=== PATIENT | female | born 1980 | race Caucasian/White ===

== ENCOUNTER 2016-08-04 13:51 | Observation (INO) | payer MEDICAID ==
[2016-08-04] VITALS (10 sets, daily range): BP systolic 103–150; BP diastolic 55–78; PULSE 58–86; RESP 16–20; TEMP 97.8–98; O2SAT 97–99
[~2016-08-04] VITALS: Ht 152.4 cm; Wt 127.0 kg
[~2016-08-04 13:51] MED LIST: METHO500 PO; SUCR1S PO; TRAM50TA PO
[2016-08-04] MEDS ORDERED: AMLO5 PO (14:19)
[2016-08-04] MEDS ORDERED: ZETI10TA5 PO (14:19)
[2016-08-04] MEDS ORDERED: ROBA750T PO (14:19)
[2016-08-04] MEDS ORDERED: LEXA20TA PO (14:19)
[2016-08-04] MEDS ORDERED: ABIL2TAB2 PO (14:19)
[2016-08-04] MEDS ORDERED: SODIUM CHLORIDE 0.9% FLUSH 10 ML FLUSH IVF PRN (14:30)
--- NOTE | 2016-08-04 14:32 | PD ---
HPI Chief Complaint: Neuro Symptoms/ Deficits Time Seen by Provider: 14:32 Travel History International Travel<30 days: No Contact w/Intl Traveler<30days: No Traveled to known affect area: No History of Present Illness HPI 36-year-old female with a history of hypertension, hyperlipidemia, depression and chronic low back pain presents to the emergency department for evaluation of right-sided weakness and paresthesia intermittently for the past month. Patient states that she's had varying degrees of numbness and weakness on the right side for the past month. States that it extends from just below her right ear down her entire right side of her body, including the chest, torso, right arm and right leg. States that it sometimes lasts for several minutes to several hours at a time. 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 She states that he told her that her speech was slightly slurred this morning and she has been told this previously by her mother several times over the past month as well. She does complain of intermittent headache that extends from the forehead to the posterior scalp described as a sharp and pressure-like pain. She has a history of migraine headaches but states that the medication she has been taking have not been helping. This is not the worst headache of her life, this was not a sudden onset thunderclap headache. She complains of some blurred vision in the right eye intermittently as well over the past month, admits that she has poor vision and is waiting to receive her prescription for glasses. Denies fever, chills, nausea, vomiting, dizziness, gait disturbance, chest pain, shortness of breath, abdominal pain. PCP Dr. Stanford. No other complaints. PFSH Past Medical History Anemia: Yes (IRON-DEFICIENCY) Heart Rhythm Problems: Yes (IRREGULAR HEART BEAT) Cardiac Catheterization: No Cardiovascular Problems: Yes High Cholesterol: Yes Congestive Heart Failure: No Diabetes: No Diminished Hearing: No Genitourinary: Yes (UTI) Hypertension: Yes Musculoskeletal: Yes (CHRONIC BACK PAIN) Respiratory: Yes (BRONCHITIS ) Immunizations Current: Yes Myocardial Infarction: No Ulcer: Yes (stomach and intestine) Tetanus Vaccination: > 5 Years ?: Not : 3 Para: 3 Miscarriage: 0 : 0 Past Surgical History Abdominal Surgery: Yes ("BEADS" PLACED IN ABD TO REDUCE BLEEDING ) Body Medical Devices: HYPER LIPID Section: Yes (NEEDED SURGICAL REPAIR FOR EXCESSIVE BLEEDING AFTER ONE C SECTION) Coronary Artery Bypass Graft: No Hysterectomy: Yes (2006) Other Surgery: Yes (LEFT GREAT TOE) Family History Family Myocardial Infarction: Yes Social History Alcohol Use: Yes (OCC) Tobacco Use: No ( ) Substance Use: No Allergies-Medications (Allergen,Severity, Reaction): Coded Allergies: Bees (Verified Allergy, Severe, Swelling, 08/04/16) Citric Acid (Verified Allergy, Intermediate, itching, 08/04/16) Cultivated Oat Pollen (Verified Allergy, Mild, SNEEZING, 08/04/16) Reported Meds & Prescriptions Reported Meds & Active Scripts Active Reported Norvasc (Amlodipine Besylate) 5 Mg Tab 5 Mg PO DAILY Lexapro (Escitalopram Oxalate) 20 Mg Tab 20 Mg PO DAILY Zetia (Ezetimibe) 10 Mg Tab 10 Mg PO DAILY Robaxin (Methocarbamol) 750 Mg Tab 750 Mg PO QID Abilify (Aripiprazole) 2 Mg Tab 2 Mg PO DAILY Review of Systems Except as stated in HPI: all other systems reviewed are Neg Physical Exam Narrative GENERAL: Obese female patient in no acute distress who is nontoxic appearing. SKIN: Warm and dry. HEAD: Normocephalic and atraumatic. No facial droop. EYES: No injection, drainage, or hyphema noted. PERRLA. EOMI. ENT: No nasal drainage noted. Oropharynx is clear. NECK: Supple and the trachea is midline. CARDIOVASCULAR: Regular rate and rhythm. RESPIRATORY: Breath sounds are equal bilaterally with no accessory muscle use, wheezing, rhonchi, or crackles. GASTROINTESTINAL: Abdomen is soft, non-tender, and nondistended. MUSCULOSKELETAL: No obvious deformities, swelling, cyanosis, or ecchymosis is present throughout the upper and lower extremities. Patient has full range of motion without any signs of neurovascular compromise. Strength 5/5 upper and lower extremities and equal bilaterally. NEUROLOGICAL: Awake, alert, and oriented. Normal speech and gait. Normal finger to nose test. Normal rapid alternating movements. Superior aspect of visual ellis are slightly decreased bilaterally however this is equal in both eyes. Patient reporting paresthesias and right arm and right leg, sensation is intact on the face. Cranial nerves are grossly intact. Data Data Last Documented VS Vital Signs Date Time Temp Pulse Resp B/P Pulse Ox O2 Delivery O2 Flow Rate FiO2 08/04/16 15:47 98.0 58 16 129/74 98 Room Air Orders Electrocardiogram (08/04/16 14:27) Prothrombin Time / Inr (Pt) (08/04/16 14:27) Act Partial Throm Time (Ptt) (08/04/16 14:27) Complete Blood Count With Diff (08/04/16 14:27) Comprehensive Metabolic Panel (08/04/16 14:27) Troponin I (08/04/16 14:27) Ct Brain W/O Iv Contrast(Rout) (08/04/16 14:27) Chest, Single Ap (08/04/16 14:27) Ecg Monitoring (08/04/16 14:27) Iv Access Insert/Monitor (08/04/16 14:27) Oximetry (08/04/16 14:27) Blood Glucose (08/04/16 14:27) Sodium Chloride 0.9% Flush (Ns Flush) (08/04/16 14:30) Admit Order (Ed Use Only) (08/04/16 16:02) Labs Laboratory Tests Test 08/04/16 14:30 White Blood Count 9.7 TH/MM3 Red Blood Count 4.61 MIL/MM3 Hemoglobin 13.1 GM/DL Hematocrit 39.4 % Mean Corpuscular Volume 85.6 FL Mean Corpuscular Hemoglobin 28.5 PG Mean Corpuscular Hemoglobin 33.3 % Concent Red Cell Distribution Width 13.6 % Platelet Count 302 TH/MM3 Mean Platelet Volume 9.7 FL Neutrophils (%) (Auto) 59.2 % Lymphocytes (%) (Auto) 31.3 % Monocytes (%) (Auto) 6.0 % Eosinophils (%) (Auto) 3.0 % Basophils (%) (Auto) 0.5 % Neutrophils # (Auto) 5.7 TH/MM3 Lymphocytes # (Auto) 3.0 TH/MM3 Monocytes # (Auto) 0.6 TH/MM3 Eosinophils # (Auto) 0.3 TH/MM3 Basophils # (Auto) 0.0 TH/MM3 CBC Comment DIFF FINAL Differential Comment Prothrombin Time 9.9 SEC Prothromb Time International 0.9 RATIO Ratio Activated Partial 29.9 SEC Thromboplast Time Sodium Level 139 MEQ/L Potassium Level 4.3 MEQ/L Chloride Level 108 MEQ/L Carbon Dioxide Level 23.7 MEQ/L Anion Gap 7 MEQ/L Blood Urea Nitrogen 16 MG/DL Creatinine 0.83 MG/DL Estimat Glomerular Filtration 77 ML/MIN Rate Random Glucose 86 MG/DL Calcium Level 9.7 MG/DL Total Bilirubin 0.6 MG/DL Aspartate Amino Transf 22 U/L (AST/SGOT) Alanine Aminotransferase 26 U/L (ALT/SGPT) Alkaline Phosphatase 101 U/L Troponin I LESS THAN 0.02 NG/ML Total Protein 8.0 GM/DL Albumin 4.0 GM/DL MDM Medical Decision Making Medical Screen Exam Complete: Yes Emergency Medical Condition: Yes Differential Diagnosis TIA versus radiculopathy versus migraine headache versus CVA versus other Narrative Course 36-year-old female presents to the emergency department for evaluation of right- sided numbness and tingling, weakness and slurred speech. Patient is afebrile, vital signs are stable. Patient was sent here by her document control supervisor whom she saw in the office today for evaluation of these symptoms to rule out stroke. IV access is obtained, labs been drawn and sent. Patient is placed on cardiac telemetry and pulse oximetry monitoring. CBC is unremarkable. Troponin is less than 0.02. Coags are unremarkable. CMP is unremarkable. Chest x-ray is negative for any acute abnormalities. Head CT is negative for any acute abnormalities. Patient has remained stable and without complaint while here in the emergency department. She'll be kept in observation for TIA and CVA workup. I discussed the case with my attending physician Dr. Syed who is aware of the patients history, physical examination findings, and treatment plan. Physician Communication Physician Communication I spoke with Dr. Paulson [facility] who agrees to admit the patient to his service under observation. Diagnosis Primary Impression: TIA (transient ischemic attack) Qualified Code: G45.9 - Transient cerebral ischemia, unspecified type Admitting Information Admitting Physician Requests: Observation Jailene Carter Aug 04, 2016 14:32
--- NOTE | 2016-08-04 14:47 | RADRPT ---
EXAM DATE/TIME: 08/04/2016 14:26 [facility] COMPARISON: No previous studies available for comparison. INDICATIONS : Possible stroke, sent by community recreation coordinator, short of breath. MEDICAL HISTORY : cardiomyelopathy SURGICAL HISTORY : None. ENCOUNTER: Initial ACUITY: 1 day PAIN SCORE: 0/10 LOCATION: Bilateral chest FINDINGS: A single view of the chest demonstrates the lungs to be symmetrically aerated without evidence of mas s, infiltrate or effusion. The cardiomediastinal contours are unremarkable. Osseous structures are intact. CONCLUSION: No acute cardiopulmonary process. Sundeep Valenzuela MD on August 04, 2016 at 14:44 Board Certified Radiologist. This report was verified electronically.
[2016-08-04 15:05] LABS: AUTOMATED NEUTROPHIL # 5.7 TH/MM3 (1.8-7.7); BASOPHIL % 0.5 % (0.0-2.0); EOSINOPHIL # 0.3 TH/MM3 (0-0.4); HEMATOCRIT 39.4 % (35.0-46.0); HEMO FLAGS DIFF FINAL; LYMPH % 31.3 % (9.0-44.0); MEAN CELL VOLUME 85.6 FL (80.0-100.0); MEAN CORPUSCULAR HEMOGLOBIN 28.5 PG (27.0-34.0); MEAN CORPUSCULAR HGB CONC 33.3 % (32.0-36.0); NEUT % 59.2 % (16.0-70.0); PLATELET COUNT 302 TH/MM3 (150-450); RED BLOOD COUNT 4.61 MIL/MM3 (4.00-5.30); RED CELL DISTRIBUTION WIDTH 13.6 % (11.6-17.2); WHITE BLOOD COUNT 9.7 TH/MM3 (4.0-11.0)
--- NOTE | 2016-08-04 15:18 | RADRPT ---
EXAM DATE/TIME: 08/04/2016 15:07 [facility] COMPARISON: CT BRAIN W/O CONTRAST, June 27, 2013, 14:50. INDICATIONS : Patient has history of migraine headaches.. RADIATION DOSE: ?34.94 CTDIvol (mGy) MEDICAL HISTORY : Cardiovascular disease. Hypertension. SURGICAL HISTORY : Hysterectomy. ENCOUNTER: Initial ACUITY: 1 day PAIN SCALE: 8/10 LOCATION: Bilateral cranial TECHNIQUE: Multiple contiguous axial images were obtained of the head. Using automated exposure control and adj ustment of the mA and/or kV according to patient size, radiation dose was kept as low as reasonably a chievable to obtain optimal diagnostic quality images. FINDINGS: CEREBRUM: The ventricles are normal for age. No evidence of midline shift, mass lesion, hemorrhage or acute in farction. No extra-axial fluid collections are seen. POSTERIOR FOSSA: The cerebellum and brainstem are intact. The 4th ventricle is midline. The cerebellopontine angle i s unremarkable. EXTRACRANIAL: The visualized portion of the orbits is intact. SKULL: The calvaria is intact. No evidence of skull fracture. CONCLUSION: The study remains unremarkable. Bjorn Fraser MD on August 04, 2016 at 15:15 Board Certified Radiologist. This report was verified electronically.
[2016-08-04 15:19] LABS: INTERNATIONAL NORMALIZED RATIO 0.9 RATIO; PROTHROMBIN TIME - PATIENT 9.9 SEC (9.8-11.6)
[2016-08-04 15:20] LABS: APTT (PATIENT) 29.9 SEC (24.3-30.1)
[2016-08-04 15:22] LABS: ALKALINE PHOSPHATASE 101 U/L (45-117); TOTAL BILIRUBIN ADULT 0.6 MG/DL (0.2-1.0)
[2016-08-04 15:48] LABS: ALT (GPT) 26 U/L (10-53); ANION GAP 7 MEQ/L (5-15); AST (GOT) 22 U/L (15-37); BICARBONATE 23.7 MEQ/L (21.0-32.0); BLOOD UREA NITROGEN 16 MG/DL (7-18); CHLORIDE 108 MEQ/L (98-107); GLOMERULAR FILTRATION RATE 77 ML/MIN (>89); POTASSIUM 4.3 MEQ/L (3.5-5.1); SODIUM (NA) 139 MEQ/L (136-145)
[2016-08-04] MEDS ORDERED: SODIUM CHLORIDE 0.9% FLUSH 10 ML FLUSH IV FLUSH PRN (16:15)
[2016-08-04] MEDS ORDERED: ASPIRIN 325 MG TAB PO ONE (16:30)
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
[2016-08-04] MEDS: HEPARIN SODIUM - SQ 10,000 UNITS/ML VIAL SQ SCH (16:47)
[2016-08-04 17:59] LABS: HEMOGLOBIN A1a 0.9 %; HEMOGLOBIN Ao 85.5 %; HEMOGLOBIN F 0.8 %; HEMOGLOBIN P3 5.2 %
--- NOTE | 2016-08-04 18:02 | RADRPT ---
EXAM DATE/TIME: 08/04/2016 17:20 [facility] COMPARISON: No previous studies available for comparison. INDICATIONS : Transient ischemic attack. MEDICAL HISTORY : Hypercholesterolemia. Hypertension. . Irregular heart beat. Bronchitis. Ulcer. Chronic back pain. Iron-deficiency anemia. SURGICAL HISTORY : Hysterectomy. section. Left big toe reconstruction. section repair. ENCOUNTER: Initial ACUITY: 1 day PAIN SCORE: 0/10 LOCATION: Bilateral neck PEAK SYSTOLIC VELOCITIES (cm/sec): ICA/CCA RATIO: Right: 1.1 Left: 0.9 ICA: Right: 109 Left: 92 CCA: Right: 99 Left: 105 ECA: Right: 84 Left: 66 VERTEBRAL: Right: 47 antegrade Left: 68 antegrade Elevated flow velocities and ICA/CCA ratios have been found to correlate with increased degrees of vessel stenosis, calculated as percentage of diameter relative to a normal segment of distal ICA/CCA FINDINGS: RIGHT CAROTID: No significant stenosis is visualized. The waveforms are within normal limits. LEFT CAROTID: No significant stenosis is visualized. The waveforms are within normal limits. VERTEBRAL ARTERIES: Antegrade flow is seen in both vertebral arteries. MISCELLANEOUS: None. CONCLUSION: Negative study with no evidence of stenosis. Bjorn Fraser MD on August 04, 2016 at 18:00 Board Certified Radiologist. This report was verified electronically.
[2016-08-04 18:07] LABS: FREE T4 1.02 NG/DL (0.76-1.46)
[2016-08-04] MEDS: SODIUM CHLORIDE 0.9% FLUSH 10 ML FLUSH IV FLUSH SCH (20:57)
[2016-08-04] MEDS: CLOPIDOGREL 75 MG TAB PO SCH (20:59)
[2016-08-04] MEDS ORDERED: ACETAMINOPHEN 325 MG TAB PO ONE (23:15)
[2016-08-05] VITALS (7 sets, daily range): BP systolic 111–133; BP diastolic 53–73; PULSE 51–80; RESP 19–21; TEMP 97.5–98.1; O2SAT 95–98
[2016-08-05] MEDS: HEPARIN SODIUM - SQ 10,000 UNITS/ML VIAL SQ SCH ×3 (02:51→16:48)
[2016-08-05 09:03] LABS: HDL CHOLESTEROL 63.9 MG/DL (40.0-60.0)
[2016-08-05] MEDS: CLOPIDOGREL 75 MG TAB PO SCH (09:09)
[2016-08-05] MEDS: ESCITALOPRAM OXALATE 20 MG TAB PO SCH (09:09)
[2016-08-05] MEDS: ASPIRIN 325 MG TAB PO SCH (09:09)
[2016-08-05] MEDS: ARIPiprazole 2 MG TAB PO SCH (09:09)
[2016-08-05] MEDS: EZETIMIBE 10 MG TAB PO SCH (09:09)
[2016-08-05] MEDS: SODIUM CHLORIDE 0.9% FLUSH 10 ML FLUSH IV FLUSH SCH ×2 (09:10→20:41)
[2016-08-05] MEDS: amLODIPine BESYLATE 5 MG TAB PO SCH (09:10)
--- NOTE | 2016-08-05 09:13 | HHI.PR ---
Review/Management Daily Summary 08/05 just back from imaging exam normal no new concerns await on studies Subjective Subjective Comments No acute events reported No headache No chest pain No dyspnea Active Medications Current Medications Medications (Trade) Dose Ordered Sig/Yuriy Route Start Time Stop Time Status Last Admin (NS Flush) 2 ml BID IV FLUSH 08/04/16 21:00 (NS Flush) 2 ml UNSCH PRN IV FLUSH 08/04/16 16:15 (Aspirin) 325 mg DAILY PO 08/05/16 09:00 (Heparin Inj) 5,000 units Q8H SQ 08/04/16 17:00 08/05/16 02:51 (Norvasc) 5 mg DAILY PO 08/05/16 09:00 (Abilify) 2 mg DAILY PO 08/05/16 09:00 (Lexapro) 20 mg DAILY PO 08/05/16 09:00 (Zetia) 10 mg DAILY PO 08/05/16 09:00 (Plavix) 75 mg DAILY PO 08/04/16 21:00 08/04/16 20:59 Allergies Allergies Coded Allergies Bees (Verified Allergy, Severe, Swelling, 08/04/16) Citric Acid (Verified Allergy, Intermediate, itching, 08/04/16) Cultivated Oat Pollen (Verified Allergy, Mild, SNEEZING, 08/04/16) Exam I&O / VS Vital Signs Date Time Temp Pulse Resp B/P Pulse Ox O2 Delivery O2 Flow Rate FiO2 08/05/16 07:47 98.0 51 21 132/60 96 08/05/16 03:28 97.5 51 20 130/73 97 08/04/16 22:35 71 08/04/16 22:32 97.9 86 20 142/75 98 08/04/16 22:16 110/78 99 08/04/16 21:48 86 18 103/55 99 Room Air 08/04/16 19:06 62 18 136/67 99 Room Air 08/04/16 17:00 97.8 75 16 119/70 99 Room Air 08/04/16 15:47 98.0 58 16 129/74 98 Room Air 08/04/16 14:33 66 16 127/71 98 Room Air 08/04/16 14:32 18 98 Room Air 08/04/16 14:10 17 Room Air 08/04/16 13:52 97.9 71 16 150/72 97 Objective Radiology Results Last [address] 08/04/16 1427 Signed Impressions: Service Date/Time: Thursday, August 04, 2016 15:07 - CONCLUSION: The study remains unremarkable. Bjorn Fraser MD Chest X-Ray 08/04/16 1427 Signed Impressions: Service Date/Time: Thursday, August 04, 2016 14:26 - CONCLUSION: No acute cardiopulmonary process. Sundeep Valenzuela MD Carotid Artery Ultrasound 08/04/16 0000 Signed Impressions: Service Date/Time: Thursday, August 04, 2016 17:20 - CONCLUSION: Negative study with no evidence of stenosis. Bjorn Fraser MD Micro and Labs Laboratory Tests Test 08/04/16 08/05/16 14:30 06:33 White Blood Count 9.7 Red Blood Count 4.61 Hemoglobin 13.1 Hematocrit 39.4 Mean Corpuscular Volume 85.6 Mean Corpuscular Hemoglobin 28.5 Mean Corpuscular Hemoglobin 33.3 Concent Red Cell Distribution Width 13.6 Platelet Count 302 Mean Platelet Volume 9.7 Neutrophils (%) (Auto) 59.2 Lymphocytes (%) (Auto) 31.3 Monocytes (%) (Auto) 6.0 Eosinophils (%) (Auto) 3.0 Basophils (%) (Auto) 0.5 Neutrophils # (Auto) 5.7 Lymphocytes # (Auto) 3.0 Monocytes # (Auto) 0.6 Eosinophils # (Auto) 0.3 Basophils # (Auto) 0.0 CBC Comment DIFF FINAL Differential Comment Prothrombin Time 9.9 Prothromb Time International 0.9 Ratio Activated Partial 29.9 Thromboplast Time Sodium Level 139 Potassium Level 4.3 Chloride Level 108 Carbon Dioxide Level 23.7 Anion Gap 7 Blood Urea Nitrogen 16 Creatinine 0.83 Estimat Glomerular Filtration 77 Rate Random Glucose 86 Hemoglobin A1c 5.5 Calcium Level 9.7 Total Bilirubin 0.6 Aspartate Amino Transf 22 (AST/SGOT) Alanine Aminotransferase 26 (ALT/SGPT) Alkaline Phosphatase 101 Troponin I LESS THAN 0.02 Total Protein 8.0 Albumin 4.0 Triglycerides Level 97 144 Cholesterol Level 257 247 LDL Cholesterol 175 154 HDL Cholesterol 63.0 63.9 Cholesterol/HDL Ratio 4.07 3.86 Free Thyroxine 1.02 Thyroid Stimulating Hormone 1.810 3rd Gen Leena Bonds MD Aug 05, 2016 09:13
[2016-08-05] MEDS ORDERED: GADODIAMIDE PF 287 MG/ML 20 ML VIAL (for RAD MRI) IV ONE (09:17)
--- NOTE | 2016-08-05 09:33 | MB ---
cc: BERENICE HOANG M.D. DATE OF CONSULTATION: 08/04/2016 HISTORY OF PRESENT ILLNESS The patient ___ provide history. I also reviewed the ED notes. She was seen in the emergency room. She comes in with a TIA. She is a 36-year-old, describing that she has been taking baby aspirin apparently most days. 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 She saw Dr. Patel and was told to come to this emergency room. She describes that last week she was at [facility] emergency room with somewhat similar symptoms. She describes that in the past month she has been having episodic right-sided numbness. She describes weakness and when her numbness is maximum she feels she cannot move the right side. It lasts anywhere from 2 or 3 minutes to 1/2 hour. In the past couple of days she has had it 8-10 times a day. She admits some occasional associated slurred speech and she also admits increasing headaches. The patient is not diabetic. She takes Zetia, Lipitor and Norvasc. NEUROLOGIC EXAMINATION The neurologic exam was quite benign. She is alert pleasant, oriented. Ocular movements and visual ellis are full. Normal speech and language. She has good strength in all four limbs on the bedside exam, though she gives away with the right. I do not see any obvious genuine weakness on the right side. Her reflexes were diminished, though present. She is obese. Plantar responses were flexor. IMAGING STUDIES The CT brain was unremarkable. LABORATORY DATA The patient's CBC was normal. Chemistry essentially normal. INR 0.9. ASSESSMENT Recurrent right-sided numbness, some associated slurred speech and increasing headaches lately. TIA versus migraines. Apparent component of depression, though not mentioned above, I realize now she is also taking Abilify and Lexapro which were not listed to me and also taking some Robaxin. I agree with neurological workup. She is to have cardiac monitoring, MRI brain, MRA head and neck, echocardiogram and lipid profile. Continue aspirin 325 and for the time being I will add Plavix. Thank you for asking us to assist in her care. MD AGUILAR Colby/TLRaza /8:40 PM /9:11 AM
--- NOTE | 2016-08-05 10:31 | RADRPT ---
EXAM DATE/TIME: 08/05/2016 07:59 [facility] COMPARISON: CT BRAIN W/O CONTRAST, August 04, 2016, 15:07. INDICATIONS : CVA. Intermittent right sided weakness for 1 month. MEDICAL HISTORY : Hypertension. SURGICAL HISTORY : Hysterectomy. section. Left great toe. ENCOUNTER: Subsequent ACUITY: 1 month PAIN SCORE: 0/10 LOCATION: head. TECHNIQUE: Multiplanar, multisequence MRI of the brain was performed without contrast. FINDINGS: CEREBRUM: The ventricles are normal for age. No evidence of midline shift, mass lesion, hemorrhage or acute in farction. No extraaxial fluid collections are seen. The pituitary gland and suprasellar cistern are normal in configuration. WHITE MATTER: No significant signal abnormalities are seen in the white matter. POSTERIOR FOSSA: The cerebellum and brainstem are intact. The 4th ventricle is midline. The cerebellopontine angle is unremarkable. The cerebellar tonsils are normal in position. DIFFUSION IMAGING: No focal areas of restricted diffusion are seen. No evidence of acute infarction. EXTRACRANIAL: The visualized portions of the orbits and paranasal sinuses are unremarkable. CONCLUSION: Negative exam. Sundeep Valenzuela MD on August 05, 2016 at 10:28 Board Certified Radiologist. This report was verified electronically.
--- NOTE | 2016-08-05 10:33 | RADRPT ---
EXAM DATE/TIME: 08/05/2016 07:59 [facility] COMPARISON: No previous studies available for comparison. INDICATIONS : CVA. Intermittent right sidede weakness for 1 month. MEDICAL HISTORY : Hypertension. SURGICAL HISTORY : section. Hysterectomy. Left great toe. ENCOUNTER: Subsequent ACUITY: 1 month PAIN SCORE: 0/10 LOCATION: head. Please note a normal MRA of the brain does not entirely exclude the possibility of a small aneurysm, nor the possibility of distal intracranial vessel disease. TECHNIQUE: 3D time of flight MRA was performed. Source images, multiplanar STS MIP, and 3D volume MIP reconstru ctions were reviewed. FINDINGS: There is excellent visualization of the major intracranial arteries out to the second-order branch ve ssels. There is no evidence for aneurysm, vessel truncation or stenosis, and no evidence for vascula r malformation. 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 The anterior communicating artery is patent. Patient is left vertebral erick nant. Both vertebrals are patent, However. CONCLUSION: 1. Anatomic variant of the [place] as above. 2. Otherwise, intracranial vessels are all patent without aneurysmal disease. Sundeep Valenzuela MD on August 05, 2016 at 10:29 Board Certified Radiologist. This report was verified electronically.
--- NOTE | 2016-08-05 10:39 | RADRPT ---
EXAM DATE/TIME: 08/05/2016 07:59 [facility] COMPARISON: US CAROTID ARTERIES, August 04, 2016, 17:20. INDICATIONS : Stenosis. CONTRAST: 20 cc Omniscan (gadodiamide) IV MEDICAL HISTORY : Hypertension. SURGICAL HISTORY : Hysterectomy. section. Left great toe. ENCOUNTER: Subsequent ACUITY: 1 month PAIN SCORE: 0/10 LOCATION: neck. Percent stenosis is calculated using the diameter of the stenotic region over the diameter of the nor mal distal internal carotid artery. TECHNIQUE: Bolus infused MRA of the extracranial circulation was performed using a neurovascular coil. Post pro cessing was performed including rotating subvolume maximum intensity projections of each carotid tyler ry, rotating full volume maximum intensity projections of both carotid arteries, sagittal and coronal sliding thin slab reformations of each carotid artery, and left oblique sliding thin slab reformatio n through the aortic arch to include the origin of the arch branch vessels. FINDINGS: AORTIC ARCH: Bovine arch. No evidence of ostial narrowing. RIGHT CAROTID: The common carotid artery is intact. The carotid bulb has a normal configuration without ulceration or narrowing. The internal carotid artery lumen is smooth without stenosis. The external carotid ar marly is intact. LEFT CAROTID: The common carotid artery is intact. The carotid bulb has a normal configuration without ulceration or narrowing. The internal carotid artery lumen is smooth without stenosis. The external carotid ar marly is intact. VERTEBRALS: Patient is left vertebral dominant. The origin of the right vertebral is not well-seen on this examin ation however, believe this is artifactual as the carotid ultrasound performed one day earlier shows a strong antegrade signal in the right vertebral artery. CONCLUSION: 1. Bovine arch. 2. Patient is left vertebral dominant. 3. The origin of the right vertebral is not identified on this exam however, I believe this is artifa ctual as the cervical ultrasound performed one day earlier shows a strong antegrade low resistance wa veform in the right vertebral artery. 4. Otherwise, cervical vessels are all patent Sundeep Valenzuela MD on August 05, 2016 at 10:31 Board Certified Radiologist. This report was verified electronically.
--- NOTE | 2016-08-05 13:58 | EKG ---
Date Performed: 08/04/2016 Time Performed: 15:00:35 PTAGE: 36 years EKG: Sinus rhythm NORMAL ECG Compared to prior tracing no significant change PREVIOUS TRACING : 06/08/2013 20.42 DOCTOR: Jesus Mcmahan Interpretating Date/Time 08/05/2016 13:56:44
--- NOTE | 2016-08-05 19:06 | HHI.PR ---
Subjective Remarks c/o headache, some toe numbness and nausea denies cp/sob stable vital signs Objective Vitals Vital Signs Date Time Temp Pulse Resp B/P Pulse Ox O2 Delivery O2 Flow Rate FiO2 08/05/16 15:20 97.9 63 20 128/69 95 08/05/16 11:43 98.0 58 21 133/64 98 08/05/16 07:47 98.0 51 21 132/60 96 08/05/16 03:28 97.5 51 20 130/73 97 08/04/16 22:35 71 08/04/16 22:32 97.9 86 20 142/75 98 08/04/16 22:16 110/78 99 08/04/16 21:48 86 18 103/55 99 Room Air Result Diagram: 08/04/16 1430 08/04/16 1430 Imaging Last Impressions Neck Magnetic Resonance Angiography 08/05/16 0000 Signed Impressions: Service Date/Time: July 07:59 - CONCLUSION: 1. Bovine arch. 2. Patient is left vertebral dominant. 3. The origin of the right vertebral is not identified on this exam however, I believe this is artifactual as the cervical ultrasound performed one day earlier shows a strong antegrade low resistance waveform in the right vertebral artery. 4. Otherwise, cervical vessels are all patent Sundeep Valenzuela MD Head Magnetic Resonance Angiography 08/05/16 0000 Signed Impressions: Service Date/Time: July 07:59 - CONCLUSION: 1. Anatomic variant of the [place] as above. 2. Otherwise, intracranial vessels are all patent without aneurysmal disease. Sundeep Valenzuela MD Brain MRI 08/05/16 0000 Signed Impressions: Service Date/Time: July 07:59 - CONCLUSION: Negative exam. Sundeep Valenzuela MD Head CT 08/04/16 1427 Signed Impressions: Service Date/Time: Thursday, August 04, 2016 15:07 - CONCLUSION: The study remains unremarkable. Bjorn Fraser MD Chest X-Ray 08/04/16 142 Signed Impressions: Service Date/Time: Thursday, August 04, 2016 14:26 - CONCLUSION: No acute cardiopulmonary process. Sundeep Valenzuela MD Carotid Artery Ultrasound 08/04/16 0000 Signed Impressions: Service Date/Time: Thursday, August 04, 2016 17:20 - CONCLUSION: Negative study with no evidence of stenosis. Bjorn Fraser MD Objective Remarks GENERAL: This is a well-nourished, well-developed patient, in no apparent distress. SKIN: No rashes, ecchymoses or lesions. Cool and dry. HEAD: Atraumatic. Normocephalic. No temporal or scalp tenderness. EYES: Pupils equal round and reactive. Extraocular motions intact. No scleral icterus. No injection or drainage. ENT: Nose without bleeding, purulent drainage or septal hematoma. Throat without erythema, tonsillar hypertrophy or exudate. Airway patent. NECK: Trachea midline. No JVD or lymphadenopathy. CARDIOVASCULAR: Regular rate and rhythm without murmurs, gallops, or rubs. RESPIRATORY: Clear to auscultation. Breath sounds equal bilaterally. No wheezes , rales, or rhonchi. GASTROINTESTINAL: Abdomen soft, non-tender, nondistended. No hepato-splenomegaly , or palpable masses. No guarding. MUSCULOSKELETAL: Extremities without clubbing, cyanosis, or edema. No joint tenderness, effusion, or edema noted. No calf tenderness. NEUROLOGICAL: Awake and alert. Cranial nerves II through XII intact. Motor and sensory grossly within normal limits.4 out of 5 muscle strength in right sided muscle groups. Normal speech. Decreased sensation in right lower extremity, right outer hand and right jaw compared to left side. Medications and IVs Current Medications Medications (Trade) Dose Ordered Sig/Yuriy Route Start Time Stop Time Status Last Admin (NS Flush) 2 ml BID IV FLUSH 08/04/16 21:00 08/05/16 09:10 (NS Flush) 2 ml UNSCH PRN IV FLUSH 08/04/16 16:15 (Aspirin) 325 mg DAILY PO 08/05/16 09:00 08/05/16 09:09 (Heparin Inj) 5,000 units Q8H SQ 08/04/16 17:00 08/05/16 16:48 (Norvasc) 5 mg DAILY PO 08/05/16 09:00 08/05/16 09:10 (Abilify) 2 mg DAILY PO 08/05/16 09:00 08/05/16 09:09 (Lexapro) 20 mg DAILY PO 08/05/16 09:00 08/05/16 09:09 (Zetia) 10 mg DAILY PO 08/05/16 09:00 08/05/16 09:09 (Plavix) 75 mg DAILY PO 08/04/16 21:00 08/05/16 09:09 (Zofran Inj) 4 mg Q6HR PRN IV PUSH 08/05/16 19:15 Urinary Catheter: No A/P Problem List: (1) TIA (transient ischemic attack) ICD Code: G45.9 Status: Acute (2) HTN (hypertension) ICD Code: I10 Status: Acute (3) HLD (hyperlipidemia) ICD Code: E78.5 Status: Acute Assessment and Plan 36 y/o female with a history of HTN, HLD, Depression, chronic back pain and gastric ulcers presented to the ED with complaints of right sided numbness and tingling. 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 She states for the last month she has been having multiple episode of numbness and tingling from her right ear down to her right toes. TIA, numbness and tingling on right side intermittent CT head unremarkable -MRI/ MRA ordered - negative -2D echo pending -Consult Neurology - recommendations appreciated. suggested possible migraine headache. -US carotids ordered - negative as above. -lipid panel - total cholesterol is 247, LDL 154, HDL 63.9. Continue Zetia. I will start the patient on simvastatin. -Continue aspirin 325 mg daily. -Neuro checks, NIH scale - Continue PT Hypothyroidism ruled out. -TSH and T4 ordered ----> within normal limits. TSH 1.8, free T4 1 0.02. HTN, chronic, currently stable -Cont home Norvasc -Monitor vitals HLD, chronic -Lipid panel shows elevated cholesterol as above. -Continue Zetia, start the patient on simvastatin. Depression, chronic -Continue Abilify and Lexapro. Headache - Possible migraine headache. I will give sumatriptan subcutaneously. DVT prophylaxis: Heparin, SCDs Discharge Planning Continue to monitor the medical floor. Possible discharge in a.m. pending neurologic clearance. Problem Qualifiers (1) TIA (transient ischemic attack): Qualified Code: G45.9 - Transient cerebral ischemia, unspecified type Ken Martinez MD Aug 05, 2016 19:06
[2016-08-05] MEDS ORDERED: SUMAtriptan INJ 6 MG/0.5 ML VIAL SQ ONE (19:15)
[2016-08-05] MEDS ORDERED: ONDANSETRON HCL 4 MG/2 ML VIAL IV PUSH PRN (19:15)
[2016-08-06 00:02] VITALS: PULSE 75
[2016-08-06] MEDS: HEPARIN SODIUM - SQ 10,000 UNITS/ML VIAL SQ SCH ×2 (01:00→09:33)
[2016-08-06 04:31] VITALS: BP 113/62; PULSE 55; RESP 18; TEMP 97.8; O2SAT 96
[2016-08-06 07:00] VITALS: PULSE 51
--- NOTE | 2016-08-06 09:11 | HHI.PR ---
Review/Management Daily Summary 08/05 just back from imaging exam normal no new concerns await on studies 08/06 doing well no sx recurrence studies negative ok neuro to go home on current meds office f/u in 2 weeks Subjective Subjective Comments No acute events reported No headache No chest pain No dyspnea Active Medications Current Medications Medications (Trade) Dose Ordered Sig/Yuriy Route Start Time Stop Time Status Last Admin (NS Flush) 2 ml BID IV FLUSH 08/04/16 21:00 08/05/16 20:41 (NS Flush) 2 ml UNSCH PRN IV FLUSH 08/04/16 16:15 (Aspirin) 325 mg DAILY PO 08/05/16 09:00 08/05/16 09:09 (Heparin Inj) 5,000 units Q8H SQ 08/04/16 17:00 08/06/16 01:00 (Norvasc) 5 mg DAILY PO 08/05/16 09:00 08/05/16 09:10 (Abilify) 2 mg DAILY PO 08/05/16 09:00 08/05/16 09:09 (Lexapro) 20 mg DAILY PO 08/05/16 09:00 08/05/16 09:09 (Zetia) 10 mg DAILY PO 08/05/16 09:00 08/05/16 09:09 (Plavix) 75 mg DAILY PO 08/04/16 21:00 08/05/16 09:09 (Zofran Inj) 4 mg Q6HR PRN IV PUSH 08/05/16 19:15 Allergies Allergies Coded Allergies Bees (Verified Allergy, Severe, Swelling, 08/04/16) Citric Acid (Verified Allergy, Intermediate, itching, 08/04/16) Cultivated Oat Pollen (Verified Allergy, Mild, SNEEZING, 08/04/16) Exam I&O / VS 08/05/16 08/05/16 08/06/16 15:00 23:00 07:00 Intake Total 200 ml 200 ml Output Total 400 ml Balance 200 ml -200 ml Intake Oral 200 ml 200 ml Output Urine Total 400 ml Vital Signs Date Time Temp Pulse Resp B/P Pulse Ox O2 Delivery O2 Flow Rate FiO2 08/06/16 07:00 51 08/06/16 04:31 97.8 55 18 113/62 96 08/06/16 00:02 75 08/05/16 23:06 98.0 54 19 120/58 96 08/05/16 22:56 80 08/05/16 22:22 18 08/05/16 19:15 98.1 74 19 111/53 96 08/05/16 15:20 97.9 63 20 128/69 95 08/05/16 11:43 98.0 58 21 133/64 98 Objective Radiology Results Last 48 hours Impressions Neck Magnetic Resonance Angiography 08/05/16 0000 Signed Impressions: Service Date/Time: July 07:59 - CONCLUSION: 1. Bovine arch. 2. Patient is left vertebral dominant. 3. The origin of the right vertebral is not identified on this exam however, I believe this is artifactual as the cervical ultrasound performed one day earlier shows a strong antegrade low resistance waveform in the right vertebral artery. 4. Otherwise, cervical vessels are all patent Sundeep Valenzuela MD Head Magnetic Resonance Angiography 08/05/16 0000 Signed Impressions: Service Date/Time: July 07:59 - CONCLUSION: 1. Anatomic variant of the [place] as above. 2. Otherwise, intracranial vessels are all patent without aneurysmal disease. Sundeep Valenzuela MD Brain MRI 08/05/16 0000 Signed Impressions: Service Date/Time: July 07:59 - CONCLUSION: Negative exam. Sundeep Valenzuela MD Head CT 08/04/16 142 Signed Impressions: Service Date/Time: Thursday, August 04, 2016 15:07 - CONCLUSION: The study remains unremarkable. Bjorn Fraser MD Chest X-Ray 08/04/161426 Signed Impressions: Service Date/Time: Thursday, August 04, 2016 14:26 - CONCLUSION: No acute cardiopulmonary process. MD Cammie Bailey Olimpio F. MD Aug 06, 2016 09:11
[2016-08-06 09:19] VITALS: BP 132/79; PULSE 64; RESP 18; TEMP 98.8; O2SAT 96
[2016-08-06] MEDS: ESCITALOPRAM OXALATE 20 MG TAB PO SCH (09:32)
[2016-08-06] MEDS: EZETIMIBE 10 MG TAB PO SCH (09:32)
[2016-08-06] MEDS: CLOPIDOGREL 75 MG TAB PO SCH (09:32)
[2016-08-06] MEDS: amLODIPine BESYLATE 5 MG TAB PO SCH (09:32)
[2016-08-06] MEDS: SODIUM CHLORIDE 0.9% FLUSH 10 ML FLUSH IV FLUSH SCH (09:32)
[2016-08-06] MEDS: ASPIRIN 325 MG TAB PO SCH (09:32)
[2016-08-06] MEDS: ARIPiprazole 2 MG TAB PO SCH (09:36)
[2016-08-06 11:49] VITALS: BP 167/93; PULSE 66; RESP 18; TEMP 98.8; O2SAT 97
[2016-08-06] MEDS ORDERED: PLAV75TA29 PO (14:24)
[2016-08-06] MEDS ORDERED: ASPI1TAB69 PO (14:24)
[2016-08-06] MEDS ORDERED: SIMV10TA PO (14:26)
--- NOTE | 2016-08-06 14:31 | HHI.DCPOC ---
Discharge Care Plan Diagnosis: (1) TIA (transient ischemic attack) (2) HTN (hypertension) (3) HLD (hyperlipidemia) (4) Migraine Goals to Promote Your Health * To prevent worsening of your condition and complications * To maintain your health at the optimal level Directions to Meet Your Goals Take your medications as prescribed Follow your dietary instruction Follow activity as directed Keep your appointments as scheduled Take your immunizations and boosters as scheduled If your symptoms worsen call your PCP, if no PCP go to Urgent Care Center or Emergency Room Smoking is Dangerous to Your Health. Avoid second hand smoke Call the 24-hour hour crisis hotline for domestic abuse at Ken Martinez MD Aug 06, 2016 14:30
--- NOTE | 2016-08-06 14:48 | HHI.DS ---
Discharge Summary Admission Date Aug 04, 2016 at 16:04 Discharge Date: Aug 06, 2016 Admitting Diagnosis TIA (1) TIA (transient ischemic attack) ICD Code: G45.9 Diagnosis: Principal (2) HTN (hypertension) ICD Code: I10 Diagnosis: Principal (3) HLD (hyperlipidemia) ICD Code: E78.5 Diagnosis: Principal (4) Migraine ICD Code: G43.909 Diagnosis: Principal Procedures none Brief History - From Admission 36 y/o female with a history of HTN, HLD, Depression, chronic back pain and gastric ulcers presented to the ED with complaints of right sided numbness and tingling. She was seen at her [facility] today who suggested she come to the ER to be evaluated for possible TIA. She states for the last month she has been having multiple episode of numbness and tingling from her right ear down to her right toes. She has noticed also increased weakness with her left side and has been dropping things with her hand. These episode last from 3 mins up to 30 mins and are very sporadic in times. Currently right now she only has tingling in her right toes, for the last 5 mins. She is also complaining of dizziness with ambulation that started 3 weeks ago. She denies any fever, chills, chest pain or sob. She does have a strong history of CVA and MT in her family. She is unsure if she has any thyroid problems, may have been told she does in the past year but is not on any medications. CBC/BMP: 08/04/16 1430 08/04/16 1430 Significant Findings Laboratory Tests Test 08/04/16 08/05/16 14:30 06:33 Chloride Level 108 MEQ/L (98-107) Estimat Glomerular Filtration 77 ML/MIN (>89) Rate Troponin I LESS THAN 0.02 NG/ML (0.02-0.05) Cholesterol Level 257 MG/DL 247 MG/DL (120-200) (120-200) LDL Cholesterol 175 MG/DL 154 MG/DL (0-99) (0-99) HDL Cholesterol 63.0 MG/DL 63.9 MG/DL (40.0-60.0) (40.0-60.0) Imaging Last Impressions Neck Magnetic Resonance Angiography 08/05/16 Signed Impressions: Service Date/Time: July 07:59 - CONCLUSION: 1. Bovine arch. 2. Patient is left vertebral dominant. 3. The origin of the right vertebral is not identified on this exam however, I believe this is artifactual as the cervical ultrasound performed one day earlier shows a strong antegrade low resistance waveform in the right vertebral artery. 4. Otherwise, cervical vessels are all patent Sundeep Valenzuela MD Head Magnetic Resonance Angiography 08/05/16 Signed Impressions: Service Date/Time: July 07:59 - CONCLUSION: 1. Anatomic variant of the [place] of [place] as above. 2. Otherwise, intracranial vessels are all patent without aneurysmal disease. Sundeep Valenzuela MD Brain MRI 08/05/16 Signed Impressions: Service Date/Time: July 07:59 - CONCLUSION: Negative exam. Sundeep Valenzuela MD Head CT 08/04/161426 Signed Impressions: Service Date/Time: Thursday, August 04, 2016 15:07 - CONCLUSION: The study remains unremarkable. Bjorn Fraser MD Chest X-Ray 08/04/161426 Signed Impressions: Service Date/Time: Thursday, August 04, 2016 14:26 - CONCLUSION: No acute cardiopulmonary process. Sundeep Valenzuela MD Carotid Artery Ultrasound 08/04/16 Signed Impressions: Service Date/Time: Thursday, August 04, 2016 17:20 - CONCLUSION: Negative study with no evidence of stenosis. Bjorn Fraser MD PE at Discharge GENERAL: This is a well-nourished, well-developed patient, in no apparent distress. SKIN: No rashes, ecchymoses or lesions. Cool and dry. HEAD: Atraumatic. Normocephalic. No temporal or scalp tenderness. EYES: Pupils equal round and reactive. Extraocular motions intact. No scleral icterus. No injection or drainage. ENT: Nose without bleeding, purulent drainage or septal hematoma. Throat without erythema, tonsillar hypertrophy or exudate. Airway patent. NECK: Trachea midline. No JVD or lymphadenopathy. CARDIOVASCULAR: Regular rate and rhythm without murmurs, gallops, or rubs. RESPIRATORY: Clear to auscultation. Breath sounds equal bilaterally. No wheezes , rales, or rhonchi. GASTROINTESTINAL: Abdomen soft, non-tender, nondistended. No hepato-splenomegaly , or palpable masses. No guarding. MUSCULOSKELETAL: Extremities without clubbing, cyanosis, or edema. No joint tenderness, effusion, or edema noted. No calf tenderness. NEUROLOGICAL: Awake and alert. Cranial nerves II through XII intact. Motor and sensory grossly within normal limits.4 out of 5 muscle strength in right sided muscle groups. Normal speech. Decreased sensation in right lower extremity. Pt update on day of discharge Patient states headache and symptoms were relieved after SQ Imitrex was given. The patient states that she does not have headache currently, however had small one this morning. She states that if the light external and then she gets a headache. Denies nausea. Patient has been seen by neurology and cleared for discharge. Hospital Course 36 y/o female with a history of HTN, HLD, Depression, chronic back pain and gastric ulcers presented to the ED with complaints of right sided numbness and tingling. She was seen at her [facility] today who suggested she come to the ER to be evaluated for possible TIA. She states for the last month she has been having multiple episode of numbness and tingling from her right ear down to her right toes. TIA, numbness and tingling on right side intermittent CT head unremarkable -MRI/ MRA ordered - negative -2D echo - Had one at cardiologists office. Transfer documents from Primary office show an EF of 55 to 60%. No intramural thrombus described. -Consult Neurology - recommendations appreciated. Possible complex migraine headache. Fu as outpatient in 2 weeks. Dc on ASA and Plavix. -US carotids ordered - negative as above. -lipid panel - total cholesterol is 247, LDL 154, HDL 63.9. Continue Zetia and Dc on Simvastatin. -Neuro checks monitored during hospital stay, NIH scale - PT, OT, ST evaluated patient. Pt recommended outpatient physical therapy. Patient will not need OT and is able to have regular diet with thin liquids. Hypothyroidism ruled out. -TSH and T4 ordered ----> within normal limits. TSH 1.8, free T4 1 0.02. HTN, chronic, Remained stable during hospital stay. -On norvasc during hospital stay. -Vitals monitored HLD, chronic -Lipid panel shows elevated cholesterol as above. -Continue Zetia, start the patient on simvastatin. Depression, chronic -Continue Abilify and Lexapro. Headache/Migaine headache - Possible complex migraine headache. Patient c/o headache, nausea, photphobia and paresthesias which resolved after administration of sumatriptan. The patient states that she has been prescribed Imitrex by her primary care and that she has descriptive home. Advised patient to take it if she has headache. DVT prophylaxis: Heparin SQ, SCDs Pt Condition on Discharge: Stable Discharge Disposition: Discharge Home Discharge Time: > 30 minutes Discharge Instructions DIET: Follow Instructions for: Heart Healthy Diet Speech Therapy-Diet Recommends: Regular Activities you can perform: Regular-No Restrictions Follow up Referrals: Neurology - 2 Weeks PCP Follow-up - 1 Week New Medications: Aspirin (Aspirin) 81 Mg Tabdr 81 MG PO DAILY Blood Clot Prevention #31 TAB Simvastatin (Simvastatin) 10 Mg Tab 10 MG PO DAILY Cholesterol Management #30 Ref 0 TAB Clopidogrel (Plavix) 75 Mg Tab 75 MG PO DAILY Blood Clot Prevention #31 TAB Continued Medications: Amlodipine (Norvasc) 5 Mg Tab 5 MG PO DAILY Blood Pressure Management #30 Ref 0 TAB Aripiprazole (Abilify) 2 Mg Tab 2 MG PO DAILY #30 Ref 0 TAB Escitalopram (Lexapro) 20 Mg Tab 20 MG PO DAILY #30 Ref 0 TAB Ezetimibe (Zetia) 10 Mg Tab 10 MG PO DAILY #30 Ref 0 TAB Discontinued Medications: Methocarbamol (Robaxin) 750 Mg Tab 750 MG PO QID Muscle Spasm Ref 0 TAB Ken Martinez MD Aug 06, 2016 14:47
== END 2016-08-06 16:55 | disposition home or self-care (01) ==
LOC: NEPE 13:51 → NEDA 16:04 → NEPHCDU 22:24
PROVIDERS: ADMIT Hospitalist; ATTEND Hospitalist
DX: G45.9 Transient cerebral ischemic attack, unspecified (principal); I10 Essential (primary) hypertension; E78.5 Hyperlipidemia, unspecified; F32.9 Major depressive disorder, single episode, unspecified; G43.909 Migraine, unspecified, not intractable, without status migrainosus; E78.00 Pure hypercholesterolemia, unspecified; M54.5 Low back pain; G89.21 Chronic pain due to trauma; Z87.11 Personal history of peptic ulcer disease; Z91.030 Bee allergy status; Z88.8 Allergy status to other drugs, medicaments and biological substances; Z91.048 Other nonmedicinal substance allergy status; Z87.891 Personal history of nicotine dependence; Z82.3 Family history of stroke
CPT/HCPCS: 70450; 70544; 70548; 70551; 71010; 80053; 80061; 82948; 83036; 84439; 84443; 84484; 85025; 85610; 85730; 92526; 92610; 93005; 93880; 97162; 97166; 99285; A9579; G0378; G8987; G8988; G8996; G8997; G8998; J1644; J3030

== ENCOUNTER 2016-08-25 16:14 | Emergency (ER) | payer MEDICAID ==
[~2016-08-25] VITALS: Ht 152.4 cm; Wt 120.0 kg
[~2016-08-25 16:14] MED LIST changes: +ABIL2TAB2 PO; +AMLO5 PO; +ASPI1TAB69 PO; +LEXA20TA PO; -METHO500 PO; +PLAV75TA29 PO; +SIMV10TA PO; -SUCR1S PO; -TRAM50TA PO; +ZETI10TA5 PO
[2016-08-25 16:15] VITALS: BP 140/77; PULSE 64; RESP 20; TEMP 98.5; O2SAT 98
--- NOTE | 2016-08-25 16:52 | PD ---
HPI Chief Complaint: Neuro Symptoms/ Deficits Time Seen by Provider: 16:47 Travel History International Travel<30 days: No Contact w/Intl Traveler<30days: No Traveled to known affect area: No History of Present Illness HPI This is a 36-year-old female who presents to the emergency department with a history of hyperlipidemia and hypertension as well as intermittent right upper and right lower extremity weakness, coming in today with right arm and right leg weakness has been going on for 2 days associated with some numbness, constant, moderate severity, similar to when she was admitted to the hospital in July of this year. Patient's also saw her doctor today and he told her that her blood count was low and they were concerned that she may be bleeding given that she is now on Plavix and aspirin. She says she has had some dark stools. PFSH Past Medical History Anemia: Yes (IRON-DEFICIENCY) Heart Rhythm Problems: Yes (IRREGULAR HEART BEAT) Cardiac Catheterization: No Cardiovascular Problems: Yes High Cholesterol: Yes Congestive Heart Failure: No Cerebrovascular Accident: Yes Diabetes: No Diminished Hearing: No Genitourinary: Yes (UTI) Hypertension: Yes Musculoskeletal: Yes (CHRONIC BACK PAIN) Respiratory: Yes (BRONCHITIS ) Immunizations Current: Yes Myocardial Infarction: No Ulcer: Yes (stomach and intestine) : 3 Para: 3 Miscarriage: 0 : 0 Past Surgical History Abdominal Surgery: Yes ("BEADS" PLACED IN ABD TO REDUCE BLEEDING ) Body Medical Devices: HYPER LIPID Section: Yes (NEEDED SURGICAL REPAIR FOR EXCESSIVE BLEEDING AFTER ONE C SECTION) Coronary Artery Bypass Graft: No Hysterectomy: Yes (2006) Other Surgery: Yes (LEFT GREAT TOE) Social History Alcohol Use: Yes (OCC) Tobacco Use: No ( ) Substance Use: No Allergies-Medications (Allergen,Severity, Reaction): Coded Allergies: Bees (Verified Allergy, Severe, Swelling, 08/04/16) Citric Acid (Verified Allergy, Intermediate, itching, 08/04/16) Cultivated Oat Pollen (Verified Allergy, Mild, SNEEZING, 08/04/16) Reported Meds & Prescriptions Reported Meds & Active Scripts Active Simvastatin 10 Mg Tab 10 Mg PO DAILY Plavix (Clopidogrel Bisulfate) 75 Mg Tab 75 Mg PO DAILY Aspirin 81 Mg Tabdr 81 Mg PO DAILY Reported Norvasc (Amlodipine Besylate) 5 Mg Tab 5 Mg PO DAILY Lexapro (Escitalopram Oxalate) 20 Mg Tab 20 Mg PO DAILY Zetia (Ezetimibe) 10 Mg Tab 10 Mg PO DAILY Abilify (Aripiprazole) 2 Mg Tab 2 Mg PO DAILY Review of Systems Except as stated in HPI: all other systems reviewed are Neg Physical Exam Narrative GENERAL:Well appearing, no acute distress SKIN: Focused skin assessment warm and dry. HEAD: Atraumatic. Normocephalic. EYES: Pupils equal and round. No injection or drainage. ENT: Moist mucous membranes NECK: Trachea midline. CARDIOVASCULAR: Regular rate and rhythm. No murmur appreciated. RESPIRATORY: Clear to auscultation. Breath sounds equal bilaterally. GASTROINTESTINAL: Abdomen soft, non-tender, nondistended. MUSCULOSKELETAL: No obvious deformities. NEUROLOGICAL: Awake and alert. No obvious cranial nerve deficits. No dysarthria or aphasia. No upper or lower extremity drift. No upper extremity ataxia. PSYCHIATRIC: Appropriate mood and affect; insight and judgment normal. Data Data Last Documented VS Vital Signs Date Time Temp Pulse Resp B/P Pulse Ox O2 Delivery O2 Flow Rate FiO2 08/25/16 17:09 63 14 126/73 100 Room Air 08/25/16 16:15 98.5 Orders Complete Blood Count With Diff (08/25/16 16:55) Type And Screen (08/25/16 17:02) Comprehensive Metabolic Panel (08/25/16 17:02) Labs Laboratory Tests Test 08/25/16 17:00 White Blood Count 9.9 TH/MM3 Red Blood Count 4.56 MIL/MM3 Hemoglobin 13.1 GM/DL Hematocrit 38.7 % Mean Corpuscular Volume 84.9 FL Mean Corpuscular Hemoglobin 28.8 PG Mean Corpuscular Hemoglobin 33.9 % Concent Red Cell Distribution Width 13.2 % Platelet Count 278 TH/MM3 Mean Platelet Volume 9.8 FL Neutrophils (%) (Auto) 59.1 % Lymphocytes (%) (Auto) 29.1 % Monocytes (%) (Auto) 5.8 % Eosinophils (%) (Auto) 5.4 % Basophils (%) (Auto) 0.6 % Neutrophils # (Auto) 5.9 TH/MM3 Lymphocytes # (Auto) 2.9 TH/MM3 Monocytes # (Auto) 0.6 TH/MM3 Eosinophils # (Auto) 0.5 TH/MM3 Basophils # (Auto) 0.1 TH/MM3 CBC Comment DIFF FINAL Differential Comment Blood Type O POSITIVE MDM Medical Decision Making Medical Screen Exam Complete: Yes Emergency Medical Condition: Yes Interpretation(s) Afebrile, no tachycardia, normotensive No anemia Differential Diagnosis Hemorrhagic stroke, ischemic stroke, TIA, complex migraine, anemia Narrative Course This is a 36-year-old female who presents to the emergency department with concern for possible low blood count and right upper and right lower extremity weakness. Her blood count was checked and it was normal. She had a negative guaiac. Labs were obtained which were reassuring. I spoke to Dr. Bonds who saw her when she was in the hospital back in July. Based on the physical exam documented by her progress notes it doesn't seem like her symptoms have resolved their and they never came up with a definitive etiology of her symptoms. They attributed it to likely complex migraine. Dr. Bonds agrees that there is likely not much else to do here in the emergency department regarding her symptoms and she would benefit from an outpatient neurology consultation. I don't think any additional imaging is warranted as she had MRI , MRA, CT and ultrasound during her last admission. Patient will be discharged home. Diagnosis Primary Impression: Migraine Qualified Code: G43.909 - Migraine without status migrainosus, not intractable , unspecified migraine type Referrals: Leena Bonds MD Patient Instructions: General Instructions Med/Other Pt SpecificInfo: No Change to Meds Disposition: 01 DISCHARGE HOME Condition: Stable Kendy Vaz MD August 25, 2016 16:52
[2016-08-25 17:09] VITALS: BP 126/73; PULSE 63; RESP 14; O2SAT 100
[2016-08-25 17:23] LABS: AUTOMATED NEUTROPHIL # 5.9 TH/MM3 (1.8-7.7); BASOPHIL # 0.1 TH/MM3 (0-0.2); BASOPHIL % 0.6 % (0.0-2.0); EOSINOPHIL # 0.5 TH/MM3 (0-0.4); EOSINOPHIL % 5.4 % (0.0-4.0); HEMATOCRIT 38.7 % (35.0-46.0); HEMO FLAGS DIFF FINAL; LYMPH % 29.1 % (9.0-44.0); LYMPHOCYTE # 2.9 TH/MM3 (1.0-4.8); MEAN CELL VOLUME 84.9 FL (80.0-100.0); MEAN CORPUSCULAR HEMOGLOBIN 28.8 PG (27.0-34.0); MEAN CORPUSCULAR HGB CONC 33.9 % (32.0-36.0); MONO % 5.8 % (0.0-8.0); NEUT % 59.1 % (16.0-70.0); PLATELET COUNT 278 TH/MM3 (150-450); RED BLOOD COUNT 4.56 MIL/MM3 (4.00-5.30); RED CELL DISTRIBUTION WIDTH 13.2 % (11.6-17.2); WHITE BLOOD COUNT 9.9 TH/MM3 (4.0-11.0)
[2016-08-25 18:24] LABS: ALKALINE PHOSPHATASE 108 U/L (45-117); TOTAL BILIRUBIN ADULT 0.9 MG/DL (0.2-1.0)
[2016-08-25 18:30] LABS: ALT (GPT) 29 U/L (10-53); ANION GAP 6 MEQ/L (5-15); AST (GOT) 23 U/L (15-37); BICARBONATE 23.8 MEQ/L (21.0-32.0); BLOOD UREA NITROGEN 18 MG/DL (7-18); CHLORIDE 111 MEQ/L (98-107); GLOMERULAR FILTRATION RATE 83 ML/MIN (>89); SODIUM (NA) 141 MEQ/L (136-145)
[2016-08-25 19:56] VITALS: BP 126/69; PULSE 66; RESP 17; O2SAT 99
== END 2016-08-25 20:03 | disposition home or self-care (01) ==
LOC: NEPE 16:14
DX: G43.909 Migraine, unspecified, not intractable, without status migrainosus (principal)
CPT/HCPCS: 80053; 85025; 86077; 86850; 86870; 86900; 86901; 86902; 86920; 86922; 99284

== ENCOUNTER 2016-09-10 18:48 | Emergency (ER) | payer MEDICAID ==
[~2016-09-10] VITALS: Ht 165.1 cm; Wt 99.0 kg
[2016-09-10 18:49] VITALS: BP 149/71; PULSE 71; RESP 15; TEMP 98; O2SAT 100
[2016-09-10] MEDS ORDERED: PROCHLORPERAZINE INJ 10 MG/2 ML VIAL IVP ONE (19:45)
[2016-09-10] MEDS ORDERED: SODIUM CHLORIDE 0.9% FLUSH 10 ML FLUSH IVF PRN (19:45)
[2016-09-10] MEDS ORDERED: diphenhydrAMINE HCL 50 MG/ML VIAL IVP ONE (19:45)
--- NOTE | 2016-09-10 19:51 | PD ---
HPI . Headache Chief Complaint: Numbness/Tingling Time Seen by Provider: 19:45 Travel History International Travel<30 days: No Contact w/Intl Traveler<30days: No Traveled to known affect area: No History of Present Illness HPI Patient presents with a three-day history of headache. The headache is across her forehead and into her temples. She states that it feels like a beating. She rates it as a 5/10. She states that she has had no relief with Fioricet. Her symptoms are associated with some right sided numbness. She also has some dizziness and mild blurred vision. She reports occasional nausea. No obvious exacerbating factor. PFSH Past Medical History Anemia: Yes (IRON-DEFICIENCY) Bipolar Disorder: Yes Anxiety: Yes Depression: Yes Heart Rhythm Problems: Yes (IRREGULAR HEART BEAT) Cardiac Catheterization: No Cardiomyopathy: Yes Cardiovascular Problems: Yes High Cholesterol: Yes Congestive Heart Failure: No Cerebrovascular Accident: Yes Diabetes: No Diminished Hearing: No Fibromyalgia: Yes GERD: Yes Genitourinary: Yes (UTI) Heparin Induced Thrombocytopen: No Hypertension: Yes Musculoskeletal: Yes (CHRONIC BACK PAIN) Respiratory: Yes (BRONCHITIS ) Immunizations Current: Yes Migraines: Yes Myocardial Infarction: No Ulcer: Yes ?: Not : 3 Para: 3 Miscarriage: 0 : 0 Past Surgical History Abdominal Surgery: Yes ("BEADS" PLACED IN ABD TO REDUCE BLEEDING ) Body Medical Devices: HYPER LIPID Section: Yes Coronary Artery Bypass Graft: No Hysterectomy: Yes Other Surgery: Yes (LEFT GREAT TOE) Family History Family Myocardial Infarction: Yes Social History Alcohol Use: No Tobacco Use: No Substance Use: No Allergies-Medications (Allergen,Severity, Reaction): Coded Allergies: Bees (Verified Allergy, Severe, Swelling, 09/10/16) Citric Acid (Verified Allergy, Intermediate, itching, 09/10/16) Cultivated Oat Pollen (Verified Allergy, Mild, SNEEZING, 09/10/16) Reported Meds & Prescriptions Reported Meds & Active Scripts Active Simvastatin 10 Mg Tab 10 Mg PO DAILY Plavix (Clopidogrel Bisulfate) 75 Mg Tab 75 Mg PO DAILY Aspirin 81 Mg Tabdr 81 Mg PO DAILY Reported Norvasc (Amlodipine Besylate) 5 Mg Tab 5 Mg PO DAILY Lexapro (Escitalopram Oxalate) 20 Mg Tab 20 Mg PO DAILY Zetia (Ezetimibe) 10 Mg Tab 10 Mg PO DAILY Abilify (Aripiprazole) 2 Mg Tab 2 Mg PO DAILY Review of Systems Except as stated in HPI: all other systems reviewed are Neg Eyes: Positive: Blurred Vision, No: Diploplia HENT: Positive: Headaches Gastrointestinal: Positive: Nausea Neurologic: Positive: Weakness, Paresthesia Physical Exam Narrative GENERAL: Awake and alert and in no acute distress. SKIN: Warm and dry. HEAD: Atraumatic. Normocephalic. EYES: Pupils equal and round. Extraocular movements are intact. NECK: Trachea midline. Neck is supple. CARDIOVASCULAR: Regular rate and rhythm. RESPIRATORY: No accessory muscle use. MUSCULOSKELETAL: No obvious deformities. No edema. NEUROLOGICAL: Awake and alert. No obvious cranial nerve deficits. Normal speech. Decreased detective precinct strength on the right. Wlvowk-[id number]-zxtmze exam is intact. Gait is normal. On testing of pronator drift, she allows her right hand slowly drop but there is no pronator drift. PSYCHIATRIC: Appropriate mood and affect; insight and judgment normal. Data Data Last Documented VS Vital Signs Date Time Temp Pulse Resp B/P Pulse Ox O2 Delivery O2 Flow Rate FiO2 09/10/16 19:42 Room Air 09/10/16 18:49 98.0 71 15 149/71 100 Orders Iv Access Insert/Monitor (09/10/16 19:45) Sodium Chloride 0.9% Flush (Ns Flush) (09/10/16 19:45) Prochlorperazine Inj (Compazine Inj) (09/10/16 19:45) Diphenhydramine Inj (Benadryl Inj) (09/10/16 19:45) MDM Medical Decision Making Medical Screen Exam Complete: Yes Emergency Medical Condition: Yes Medical Record Reviewed: Yes (patient was admitted here with very similar complaints. She had a complete stroke workup which was completely negative. Her discharge diagnosis was complex migraine. Other medical problems include hypertension, hyperlipidemia, depression and chronic low back pain.) Differential Diagnosis Differential diagnosis of headache includes but is not limited to migraine, muscle contraction headache, brain tumor, brain bleed Narrative Course Patient presents with head pain associated with right sided numbness and weakness. This is very similar to previous headaches. She has had a recent negative stroke workup. She will be treated for headache. Her headache is improving. Diagnosis Primary Impression: Migraine Qualified Code: G43.909 - Migraine without status migrainosus, not intractable , unspecified migraine type Patient Instructions: General Instructions, Migraine Headache (DC) Disposition: 01 DISCHARGE HOME Condition: Stable Karishma Costa MD Sep 10, 2016 19:51
[2016-09-10] MEDS ORDERED: CARA1TAB6 PO (20:40)
[2016-09-10] MEDS ORDERED: ATOR1TAB18 PO (20:40)
[2016-09-10] MEDS ORDERED: BUTATAB6 PO (20:40)
[2016-09-10] MEDS ORDERED: DICY10 PO (20:40)
[2016-09-10] MEDS ORDERED: BACL10TA PO (20:40)
[2016-09-10] MEDS ORDERED: TRAZ50TA12 PO (20:40)
[2016-09-10] MEDS ORDERED: LOPE2TAB21 PO (20:40)
[2016-09-10] MEDS ORDERED: ROBA750T PO (20:40)
[2016-09-10] MEDS ORDERED: ACET25TA4 PO (20:40)
[2016-09-10] MEDS ORDERED: ASPI81TA5 PO (20:40)
[2016-09-10] MEDS ORDERED: IBUP400T20 PO (20:40)
[2016-09-10 21:45] VITALS: BP 138/68; PULSE 72; RESP 20; O2SAT 100
== END 2016-09-10 21:55 | disposition home or self-care (01) ==
LOC: NEPC 18:48
DX: G43.909 Migraine, unspecified, not intractable, without status migrainosus (principal); R20.0 Anesthesia of skin; R42 Dizziness and giddiness; H53.8 Other visual disturbances; I10 Essential (primary) hypertension
CPT/HCPCS: 96374; 96375; 99284; J0780; J1200

== ENCOUNTER 2016-10-12 23:28 | Emergency (ER) | payer MEDICAID ==
[~2016-10-12] VITALS: Ht 165.1 cm; Wt 99.0 kg
[~2016-10-12 23:28] MED LIST changes: +ACET25TA4 PO; -ASPI1TAB69 PO; +ASPI81TA5 PO; +ATOR1TAB18 PO; +BACL10TA PO; +BUTATAB6 PO; +CARA1TAB6 PO; +DICY10 PO; +IBUP400T20 PO; +LOPE2TAB21 PO; +ROBA750T PO; -SIMV10TA PO; +TRAZ50TA12 PO
[2016-10-12 23:30] VITALS: BP 140/70; PULSE 70; RESP 18; TEMP 98.2; O2SAT 99
[2016-10-13] MEDS ORDERED: ALBUAER3 INH (00:14)
[2016-10-13] MEDS ORDERED: SODIUM CHLOR 0.9% 1000 ML INJ 1,000 ML IV ONE (00:30)
[2016-10-13] MEDS ORDERED: ONDANSETRON HCL 4 MG/2 ML VIAL IV ONE (00:30)
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
[2016-10-13 00:55] LABS: AUTOMATED NEUTROPHIL # 5.6 TH/MM3 (1.8-7.7); BASOPHIL % 0.3 % (0.0-2.0); EOSINOPHIL # 0.4 TH/MM3 (0-0.4); EOSINOPHIL % 4.1 % (0.0-4.0); HEMO FLAGS DIFF FINAL; LYMPH % 36.6 % (9.0-44.0); LYMPHOCYTE # 3.9 TH/MM3 (1.0-4.8); MEAN CELL VOLUME 86.1 FL (80.0-100.0); MEAN CORPUSCULAR HEMOGLOBIN 28.4 PG (27.0-34.0); MONO % 7.2 % (0.0-8.0); NEUT % 51.8 % (16.0-70.0); PLATELET COUNT 282 TH/MM3 (150-450); RED BLOOD COUNT 4.42 MIL/MM3 (4.00-5.30); RED CELL DISTRIBUTION WIDTH 13.6 % (11.6-17.2); WHITE BLOOD COUNT 10.7 TH/MM3 (4.0-11.0)
[2016-10-13 01:05] LABS: ANION GAP 5 MEQ/L (5-15); AST (GOT) 15 U/L (15-37); BICARBONATE 27.3 MEQ/L (21.0-32.0); BLOOD UREA NITROGEN 21 MG/DL (7-18); CHLORIDE 109 MEQ/L (98-107); GLOMERULAR FILTRATION RATE 74 ML/MIN (>89); INTERNATIONAL NORMALIZED RATIO 0.9 RATIO; MAGNESIUM 2.1 MG/DL (1.5-2.5); POTASSIUM 4.1 MEQ/L (3.5-5.1); PROTHROMBIN TIME - PATIENT 9.5 SEC (9.8-11.6); SODIUM (NA) 141 MEQ/L (136-145)
[2016-10-13 01:08] LABS: ALKALINE PHOSPHATASE 138 U/L (45-117); ALT (GPT) 28 U/L (10-53); CREATINE KINASE 266 U/L (26-192); TOTAL BILIRUBIN ADULT 0.3 MG/DL (0.2-1.0)
[2016-10-13 01:21] LABS: CKMB 1.4 NG/ML (0.5-3.6)
[2016-10-13] MEDS ORDERED: IOHEXOL 350 MG/ML 10 ML VIAL (for RAD DIAG) IV ONE (02:00)
--- NOTE | 2016-10-13 02:19 | RADRPT ---
EXAM DATE/TIME: 10/13/2016 00:50 [facility] COMPARISON: CHEST SINGLE AP, August 04, 2016, 14:26. INDICATIONS : Shortness of breath. MEDICAL HISTORY : None. SURGICAL HISTORY : None. ENCOUNTER: Initial ACUITY: 1 day PAIN SCORE: 0/10 LOCATION: Bilateral chest FINDINGS: A single view of the chest demonstrates the lungs to be symmetrically aerated without evidence of mas s, infiltrate or effusion. The cardiomediastinal contours are unremarkable. Osseous structures are intact. CONCLUSION: No acute disease. Randell Zheng MD on October 13, 2016 at 2:17 Board Certified Radiologist. This report was verified electronically.
--- NOTE | 2016-10-13 02:19 | RADRPT ---
EXAM DATE/TIME: 10/13/2016 02:00 [facility] COMPARISON: No previous studies available for comparison. INDICATIONS : Right upper quadrant pain. IV CONTRAST: 95 cc Omnipaque 350 (iohexol) IV ORAL CONTRAST: No oral contrast ingested. RADIATION DOSE: 31.64 CTDIvol (mGy) MEDICAL HISTORY : Hypertension. Ulcers. Gastroesophageal reflux disease.CVA. SURGICAL HISTORY : Hysterectomy. section. ENCOUNTER: Initial ACUITY: 2 days PAIN SCALE: 5/10 LOCATION: Right upper quadrant TECHNIQUE: Volumetric scanning of the abdomen and pelvis was performed. Using automated exposure control and ad justment of the mA and/or kV according to patient size, radiation dose was kept as low as reasonably achievable to obtain optimal diagnostic quality images. DICOM format image data is available electro nically for review and comparison. FINDINGS: LOWER LUNGS: The visualized lower lungs are clear. LIVER: Homogeneous density without lesion. There is no dilation of the biliary tree. No calcified gallston es. Gallbladder is contracted. SPLEEN: Normal size without lesion. PANCREAS: Within normal limits. KIDNEYS: Normal in size and shape. There is no mass, stone or hydronephrosis. ADRENAL GLANDS: Within normal limits. VASCULAR: There is no aortic aneurysm. BOWEL/MESENTERY: The stomach, small bowel, and colon demonstrate no acute abnormality. There is no free intraperitone al air or fluid. ABDOMINAL WALL: Within normal limits. RETROPERITONEUM: There is no lymphadenopathy. BLADDER: No wall thickening or mass. REPRODUCTIVE: Within normal limits. INGUINAL: There is no lymphadenopathy or hernia. MUSCULOSKELETAL: Within normal limits for patient age. CONCLUSION: 1. Gallbladder is contracted. 2. No acute inflammatory process. Randell Zheng MD on October 13, 2016 at 2:15 Board Certified Radiologist. This report was verified electronically.
[2016-10-13] MEDS ORDERED: KETOROLAC TROMETHAMINE 30 MG/ML (IVP) VIAL IV PUSH ONE (02:45)
[2016-10-13] MEDS ORDERED: SODIUM CHLORID 0.9% 500 ML INJ 500 ML IV ONE (02:45)
[2016-10-13 03:00] LABS: BACTERIA, URINE RARE /hpf; BLOOD, URINE NEG (NEG); COMMENT (UR) CULT NOT INDICATED; CULTURE IF INDICATED CULT NOT INDICATED; GLUCOSE,URINE NEG (NEG); KETONE, URINE NEG (NEG); MUCUS URINE FEW /lpf (OCC); NITRITE,URINE NEG (NEG); PH, URINE 5.5 (5.0-8.5); SQUAMOUS EPITHELIAL CELL URINE 1 /hpf (0-5); URINE COLOR YELLOW (YELLW/STRAW)
[2016-10-13] MEDS ORDERED: HYDR-3533 PO (03:28)
--- NOTE | 2016-10-13 09:13 | EKG ---
Date Performed: 10/13/2016 Time Performed: 01:16:49 PTAGE: 36 years EKG: Sinus rhythm NORMAL ECG PREVIOUS TRACING : 08/04/2016 15.00 DOCTOR: Alessandro Daily Interpretating Date/Time 10/13/2016 09:11:19
[2016-10-14] MEDS ORDERED: TOPI1TAB97 PO (14:18)
[2016-10-14] MEDS ORDERED: CLAR10CA3 PO (14:18)
[2016-10-14] MEDS ORDERED: ZOFR4TAB3 SL (14:18)
[2016-10-14] MEDS ORDERED: FLUT1SPR5 EACH NARE (14:18)
== END 2016-10-13 04:21 | disposition home or self-care (01) ==
LOC: NEPE 23:28
DX: R07.89 Other chest pain (principal); R10.13 Epigastric pain; E78.5 Hyperlipidemia, unspecified; F32.9 Major depressive disorder, single episode, unspecified; I10 Essential (primary) hypertension; D50.9 Iron deficiency anemia, unspecified; Z86.73 Personal history of transient ischemic attack (TIA), and cerebral infarction without residual deficits; Z87.11 Personal history of peptic ulcer disease; M79.7 Fibromyalgia
CPT/HCPCS: 71010; 74177; 80053; 81001; 82550; 82552; 83690; 83735; 83880; 84484; 85025; 85379; 85610; 85730; 86140; 93005; 96361; 96374; 96375; 99285; J1885; J2405; J7030; J7040; Q9967

== ENCOUNTER 2016-10-14 12:09 | Emergency (ER) | payer MEDICAID ==
[~2016-10-14] VITALS: Ht 152.4 cm; Wt 109.0 kg
[~2016-10-14 12:09] MED LIST changes: +ALBUAER3 INH; +HYDR-3533 PO
[2016-10-14 12:11] VITALS: BP 138/67; PULSE 60; RESP 24; TEMP 97.6; O2SAT 98
--- NOTE | 2016-10-14 12:57 | PD ---
HPI . sob, abdominal pain, x 3 days Chief Complaint: Respiratory Symptoms Time Seen by Provider: 12:57 Travel History International Travel<30 days: No Contact w/Intl Traveler<30days: No Traveled to known affect area: No History of Present Illness HPI 36 yr old female with hx of HTN, cardiomyopathy, HLD and chronic back pain here with complaints of shortness of breath and abdominal pain for the past 3 days. Of note patient was here on October 12, 2016 with similar complaints. At that time workup was unremarkable for any acute findings. CT scan of abdomen and pelvis at that time demonstrated a contracted gallbladder. Patient is here complaining of intermittent shortness of breath and RUQ/Mid abdominal pain that she rates as a 6.5/10. It is improved with Lortab. She also reports intermittent nausea and admits to having nausea at this moment. She denies any vomiting, diarrhea or constipation. She also denies any chest pain. She tells me that she tried to get an appointment with her primary care provider, but was unable to do so and was told to come to the emergency department. PFSH Past Medical History Hx Anticoagulant Therapy: Yes (PLAVIX/ASA) Anemia: Yes (IRON-DEFICIENCY) Bipolar Disorder: Yes Anxiety: Yes Depression: Yes Heart Rhythm Problems: Yes (IRREGULAR HEART BEAT) Cardiac Catheterization: No Cardiomyopathy: Yes Cardiovascular Problems: Yes (CARDIOMYOPATHY) High Cholesterol: Yes Congestive Heart Failure: No Cerebrovascular Accident: Yes (TIA X 4) Diabetes: No Diminished Hearing: No Fibromyalgia: Yes GERD: Yes Genitourinary: Yes (UTI) Heparin Induced Thrombocytopen: No Hypertension: Yes Musculoskeletal: Yes (CHRONIC BACK PAIN) Respiratory: Yes (BRONCHITIS ) Immunizations Current: Yes Migraines: Yes Myocardial Infarction: No Ulcer: Yes ?: Not : 3 Para: 3 Miscarriage: 0 : 0 Past Surgical History Abdominal Surgery: Yes ("BEADS" PLACED IN ABD TO REDUCE BLEEDING ) Body Medical Devices: HYPER LIPID Section: Yes Coronary Artery Bypass Graft: No Hysterectomy: Yes (2007) Other Surgery: Yes (LEFT GREAT TOE) Social History Alcohol Use: No Tobacco Use: No Substance Use: No Allergies-Medications (Allergen,Severity, Reaction): Coded Allergies: Bees (Verified Allergy, Severe, Swelling, 10/14/16) Citric Acid (Verified Allergy, Intermediate, itching, 10/14/16) Cultivated Oat Pollen (Verified Allergy, Mild, SNEEZING, 10/14/16) Reported Meds & Prescriptions Reported Meds & Active Scripts Active Lortab (Hydrocodone-Acetaminophen) 5-325 Mg Tab 1 Tab PO Q6H PRN Plavix (Clopidogrel Bisulfate) 75 Mg Tab 75 Mg PO DAILY Reported Zofran Odt (Ondansetron Odt) 4 Mg Tab 4 Mg SL Q6HR PRN Flonase Nasal [place] (Fluticasone Nasal [place]) 50 Mcg/Act Edson 50 Mcg EACH NARE BID Claritin (Loratadine) 10 Mg Cap 10 Mg PO DAILY Topiramate 25 Mg Tab 25 Mg PO BID Proair Hfa 8.5 GM Inh (Albuterol Sulfate) 90 Mcg/Act Aer 2 Puff INH Q4-6H PRN 108 mcg/actuation Urfyfezcdr-Ctluhmenxbidj-Zidpslfk 50-325-40 Mg Tab 1 Tab PO Q6HR PRN Do not exceed 6 tablets/day. Ibuprofen 400 Mg Tab 400 Mg PO DAILY PRN Atorvastatin (Atorvastatin Calcium) 80 Mg Tab 80 Mg PO HS Loperamide (Loperamide HCl) 2 Mg Tablet 2 Mg PO TID PRN Trazodone (Trazodone HCl) 50 Mg Tab 200 Mg PO HS Baclofen 10 Mg Tab 10 Mg PO BID Carafate (Sucralfate) 1 Gm Tab 1 Gm PO DAILY On empty stomach Bentyl (Dicyclomine HCl) 10 Mg Cap 10 Mg PO BID PRN Aspirin DR (Aspirin) 81 Mg Tabdr 81 Mg PO DAILY Norvasc (Amlodipine Besylate) 5 Mg Tab 5 Mg PO DAILY Lexapro (Escitalopram Oxalate) 20 Mg Tab 20 Mg PO DAILY Zetia (Ezetimibe) 10 Mg Tab 10 Mg PO DAILY Abilify (Aripiprazole) 2 Mg Tab 2 Mg PO DAILY Review of Systems General / Constitutional: No: Fever Eyes: No: Visual changes HENT: No: Headaches Cardiovascular: No: Chest Pain or Discomfort Respiratory: Positive: Shortness of Breath Gastrointestinal: Positive: Abdominal Pain (right upper/mid quadrant) Genitourinary: No: Dysuria Musculoskeletal: No: Pain Skin: No Rash Neurologic: No: Weakness Psychiatric: No: Depression Endocrine: No: Polydipsia Hematologic/Lymphatic: No: Easy Bruising Physical Exam Narrative GENERAL: AAO x 3, no acute distress, Well-nourished, well-developed patient. Morbidly obese SKIN: Warm and dry. No visible rashes or bruising. HEAD: Normocephalic and atraumatic. EYES: No scleral icterus. No injection or drainage. EOM intact, PERRLA ENT: No nasal drainage noted. Mucous membranes pink. Airway patent. NECK: Supple, trachea midline. No JVD. CARDIOVASCULAR: Regular rate and rhythm without murmurs, gallops, or rubs. RESPIRATORY: Breath sounds equal bilaterally. No accessory muscle use. No rhonchi or rales. No wheezing. GASTROINTESTINAL: Abdomen soft, nondistended. Slight tenderness to palpation in the right upper quadrant EXTREMITIES: No cyanosis or edema. Pedal pulses normal bilaterally. BACK: Nontender without obvious deformity. No CVA tenderness. NEURO: CN II-12 intact, claims processor strength normal b/l, UE and LE 5/5, no focal deficits PSYCH: AAO x 3, normal affect. Data Data Last Documented VS Vital Signs Date Time Temp Pulse Resp B/P Pulse Ox O2 Delivery O2 Flow Rate FiO2 10/14/16 14:25 53 20 112/55 100 Room Air 10/14/16 12:11 97.6 Orders Electrocardiogram (10/14/16 12:19) Complete Blood Count With Diff (10/14/16 12:19) Ckmb (Isoenzyme) Profile (10/14/16 12:19) Troponin I (10/14/16 12:19) Chest, Single Ap (10/14/16 12:19) Lipase (10/14/16 12:19) Ondansetron Inj (Zofran Inj) (10/14/16 13:00) Us Abdomen Gallbladder (10/14/16 12:57) Comprehensive Metabolic Panel (10/14/16 12:47) CKMB (10/14/16 12:47) CKMB% (10/14/16 12:47) D-Dimer (10/14/16 13:45) Labs Laboratory Tests Test 10/14/16 10/14/16 12:47 14:10 White Blood Count 8.5 TH/MM3 Red Blood Count 4.65 MIL/MM3 Hemoglobin 13.1 GM/DL Hematocrit 40.0 % Mean Corpuscular Volume 86.0 FL Mean Corpuscular Hemoglobin 28.2 PG Mean Corpuscular Hemoglobin 32.8 % Concent Red Cell Distribution Width 13.8 % Platelet Count 290 TH/MM3 Mean Platelet Volume 9.6 FL Neutrophils (%) (Auto) 57.8 % Lymphocytes (%) (Auto) 32.8 % Monocytes (%) (Auto) 5.2 % Eosinophils (%) (Auto) 4.0 % Basophils (%) (Auto) 0.2 % Neutrophils # (Auto) 4.9 TH/MM3 Lymphocytes # (Auto) 2.8 TH/MM3 Monocytes # (Auto) 0.4 TH/MM3 Eosinophils # (Auto) 0.3 TH/MM3 Basophils # (Auto) 0.0 TH/MM3 CBC Comment DIFF FINAL Differential Comment Sodium Level 139 MEQ/L Potassium Level 4.0 MEQ/L Chloride Level 108 MEQ/L Carbon Dioxide Level 25.9 MEQ/L Anion Gap 5 MEQ/L Blood Urea Nitrogen 18 MG/DL Creatinine 0.92 MG/DL Estimat Glomerular Filtration 69 ML/MIN Rate Random Glucose 89 MG/DL Calcium Level 9.7 MG/DL Total Bilirubin 0.4 MG/DL Aspartate Amino Transf 11 U/L (AST/SGOT) Alanine Aminotransferase 29 U/L (ALT/SGPT) Alkaline Phosphatase 125 U/L Total Creatine Kinase 213 U/L Creatine Kinase MB 1.9 NG/ML Creatine Kinase MB % 0.9 % Troponin I LESS THAN 0.02 NG/ML Total Protein 8.2 GM/DL Albumin 4.0 GM/DL Lipase 93 U/L D-Dimer Quantitative (PE/DVT) 0.37 MG/L FEU [facility] [place] Medical Decision Making Medical Screen Exam Complete: Yes Emergency Medical Condition: Yes Medical Record Reviewed: Yes Differential Diagnosis Cholelithiasis, cholecystitis, pancreatitis, appendicitis, less likely pulmonary emboli, Narrative Course 36-year-old female here with complaints of shortness breath and abdominal pain. Of note patient was recently seen on October 12, 2016. Workup at that time was negative. CT scan of the abdomen and pelvis at that time demonstrated a contracted gallbladder. Chest x-ray was negative for any acute process. Labs and abdominal ultrasound have been ordered. Zofran given for nausea. Workup thus far, d-dimer is negative, CK is still elevated, but improved since last visit. Troponin is negative. Chest x-ray is also unremarkable. US no acute findings. Possible chronic liver disease. Last Impressions Chest X-Ray 10/14/16 1219 Signed Impressions: Service Date/Time: October 12:56 - CONCLUSION: No acute cardiopulmonary abnormality is identified. Ivan Rod MD Laboratory Tests Test 10/14/16 10/14/16 12:47 14:10 White Blood Count 8.5 TH/MM3 Red Blood Count 4.65 MIL/MM3 Hemoglobin 13.1 GM/DL Hematocrit 40.0 % Mean Corpuscular Volume 86.0 FL Mean Corpuscular Hemoglobin 28.2 PG Mean Corpuscular Hemoglobin 32.8 % Concent Red Cell Distribution Width 13.8 % Platelet Count 290 TH/MM3 Mean Platelet Volume 9.6 FL Neutrophils (%) (Auto) 57.8 % Lymphocytes (%) (Auto) 32.8 % Monocytes (%) (Auto) 5.2 % Eosinophils (%) (Auto) 4.0 % Basophils (%) (Auto) 0.2 % Neutrophils # (Auto) 4.9 TH/MM3 Lymphocytes # (Auto) 2.8 TH/MM3 Monocytes # (Auto) 0.4 TH/MM3 Eosinophils # (Auto) 0.3 TH/MM3 Basophils # (Auto) 0.0 TH/MM3 CBC Comment DIFF FINAL Differential Comment Sodium Level 139 MEQ/L Potassium Level 4.0 MEQ/L Chloride Level 108 MEQ/L Carbon Dioxide Level 25.9 MEQ/L Anion Gap 5 MEQ/L Blood Urea Nitrogen 18 MG/DL Creatinine 0.92 MG/DL Estimat Glomerular Filtration 69 ML/MIN Rate Random Glucose 89 MG/DL Calcium Level 9.7 MG/DL Total Bilirubin 0.4 MG/DL Aspartate Amino Transf 11 U/L (AST/SGOT) Alanine Aminotransferase 29 U/L (ALT/SGPT) Alkaline Phosphatase 125 U/L Total Creatine Kinase 213 U/L Creatine Kinase MB 1.9 NG/ML Creatine Kinase MB % 0.9 % Troponin I LESS THAN 0.02 NG/ML Total Protein 8.2 GM/DL Albumin 4.0 GM/DL Lipase 93 U/L D-Dimer Quantitative (PE/DVT) 0.37 MG/L FEU I have discussed all of these results with the patient. I've explained to her that ultimately she will need follow-up with primary care prior for further workup. I've explained to her that there will not be any medications upon discharge. She can continue to use the pain medications that were provided to her on the October. Patient verbalized understanding of instructions, questions were answered, and thanked me for their care. I advised them if their condition worsens, please return to the nearest emergency room for further care. Diagnosis Primary Impression: Abdominal pain Qualified Code: R10.11 - Right upper quadrant abdominal pain Patient Instructions: General Instructions Additional Instructions: Please return to emergency department if your symptoms return or worsen. Follow up with your primary care provider. Med/Other Pt SpecificInfo: No Change to Meds Disposition: 01 DISCHARGE HOME Condition: Stable Piedad Ospina Oct 14, 2016 12:57
[2016-10-14] MEDS ORDERED: ONDANSETRON HCL 4 MG/2 ML VIAL IV PUSH ONE (13:00)
[2016-10-14 13:10] LABS: AUTOMATED NEUTROPHIL # 4.9 TH/MM3 (1.8-7.7); BASOPHIL % 0.2 % (0.0-2.0); EOSINOPHIL # 0.3 TH/MM3 (0-0.4); HEMO FLAGS DIFF FINAL; LYMPH % 32.8 % (9.0-44.0); LYMPHOCYTE # 2.8 TH/MM3 (1.0-4.8); MEAN CORPUSCULAR HEMOGLOBIN 28.2 PG (27.0-34.0); MEAN CORPUSCULAR HGB CONC 32.8 % (32.0-36.0); MONO % 5.2 % (0.0-8.0); NEUT % 57.8 % (16.0-70.0); PLATELET COUNT 290 TH/MM3 (150-450); RED BLOOD COUNT 4.65 MIL/MM3 (4.00-5.30); RED CELL DISTRIBUTION WIDTH 13.8 % (11.6-17.2); WHITE BLOOD COUNT 8.5 TH/MM3 (4.0-11.0)
[2016-10-14 13:32] LABS: ANION GAP 5 MEQ/L (5-15); BICARBONATE 25.9 MEQ/L (21.0-32.0); BLOOD UREA NITROGEN 18 MG/DL (7-18); CHLORIDE 108 MEQ/L (98-107); GLOMERULAR FILTRATION RATE 69 ML/MIN (>89); SODIUM (NA) 139 MEQ/L (136-145)
[2016-10-14 13:33] LABS: ALT (GPT) 29 U/L (10-53); AST (GOT) 11 U/L (15-37)
[2016-10-14 13:37] LABS: ALKALINE PHOSPHATASE 125 U/L (45-117); CREATINE KINASE 213 U/L (26-192); TOTAL BILIRUBIN ADULT 0.4 MG/DL (0.2-1.0)
[2016-10-14 13:49] LABS: CKMB 1.9 NG/ML (0.5-3.6)
[2016-10-14] MEDS ORDERED: ZOFR4TAB3 SL (14:18)
[2016-10-14] MEDS ORDERED: FLUT1SPR5 EACH NARE (14:18)
[2016-10-14] MEDS ORDERED: TOPI1TAB97 PO (14:18)
[2016-10-14] MEDS ORDERED: CLAR10CA3 PO (14:18)
--- NOTE | 2016-10-14 14:22 | RADRPT ---
EXAM DATE/TIME: 10/14/2016 12:56 [facility] COMPARISON: CHEST SINGLE AP, October 13, 2016, 0:50. INDICATIONS : Chest pain, short of breath. MEDICAL HISTORY : Hypertension. CVA SURGICAL HISTORY : None. ENCOUNTER: Initial ACUITY: 4 - 6 days PAIN SCORE: 0/10 LOCATION: Bilateral chest FINDINGS: Portable AP view of the chest demonstrates a normal-sized cardiac silhouette. No effusion, consolidat ion, or pneumothorax is visualized. The bones and soft tissues demonstrate no acute abnormality. EKG lines overlie the patient. CONCLUSION: No acute cardiopulmonary abnormality is identified. Ivan Rod MD on October 14, 2016 at 14:07 Board Certified Radiologist. This report was verified electronically.
[2016-10-14 14:25] VITALS: BP 112/55; PULSE 53; RESP 20; O2SAT 100
--- NOTE | 2016-10-14 14:43 | RADRPT ---
EXAM DATE/TIME: 10/14/2016 13:29 [facility] COMPARISON: CT ABDOMEN & PELVIS W CONTRAST, October 13, 2016, 2:00. INDICATIONS : Right upper quadrant pain. MEDICAL HISTORY : Stroke. Hypercholesterolemia. Hypertension. Blurred vision. Migraine. Cardiomyopathy. Anticoagulant t herapy, plavix/asa. Irregular heartbeat. Bronchitis. Ulcer. Anemia. Fibromyalgia. SURGICAL HISTORY : Hysterectomy. section. Left great toe surgery. ENCOUNTER: Initial ACUITY: 4-6 days PAIN SCORE: 9/10 LOCATION: Right upper quadrant MEASUREMENTS: LIVER: 18.5 cm length COMMON DUCT: 4 mm RIGHT KIDNEY: 10.1 x 5.6 x 5.1 cm FINDINGS: LIVER: Normal echotexture without focal lesion or ductal dilatation. There is a suspected subtle nodular con tour. Main portal vein is patent with hepatopedal blood flow. COMMON DUCT: No intraluminal mass or stone visualized. GALLBLADDER: Contains no stones, demonstrates no wall thickening or pericholecystic fluid. PANCREAS: The visualized portions are within normal limits. RIGHT KIDNEY: No evidence of hydronephrosis, stone, or mass. There is trace right pleural fluid. CONCLUSION: 1. No acute finding is identified to explain the right upper quadrant pain. Gallbladder is normal. 2. Heterogeneous echotexture the liver with questionable nodular contour. Although nonspecific, this could indicate chronic liver disease. 3. Trace right pleural fluid. Ivan Rod MD on October 14, 2016 at 14:38 Board Certified Radiologist. This report was verified electronically.
--- NOTE | 2016-10-15 13:34 | EKG ---
Date Performed: 10/14/2016 Time Performed: 12:33:13 PTAGE: 36 years EKG: SINUS BRADYCARDIA WITH SINUS ARRHYTHMIA BORDERLINE ECG Compared to prior tracing no signifi cant change PREVIOUS TRACING : 10/13/2016 01.16 DOCTOR: Jesus Mcmahan Interpretating Date/Time 10/15/2016 13:31:03
== END 2016-10-14 15:32 | disposition home or self-care (01) ==
LOC: NEPE 12:09
DX: R10.11 Right upper quadrant pain (principal); I42.9 Cardiomyopathy, unspecified; I10 Essential (primary) hypertension; R00.1 Bradycardia, unspecified; F31.9 Bipolar disorder, unspecified; F41.8 Other specified anxiety disorders; E78.00 Pure hypercholesterolemia, unspecified; Z86.73 Personal history of transient ischemic attack (TIA), and cerebral infarction without residual deficits; M79.7 Fibromyalgia; D50.9 Iron deficiency anemia, unspecified
CPT/HCPCS: 71010; 76705; 80053; 82550; 82552; 83690; 84484; 85025; 85379; 93005; 96374; 99285; J2405

== ENCOUNTER 2016-10-22 22:25 | Emergency (ER) | payer MEDICAID ==
[~2016-10-22] VITALS: Ht 152.4 cm; Wt 125.0 kg
[~2016-10-22 22:25] MED LIST changes: -ACET25TA4 PO; +CLAR10CA3 PO; +FLUT1SPR5 EACH NARE; -ROBA750T PO; +TOPI1TAB97 PO; +ZOFR4TAB3 SL
[2016-10-22 22:29] VITALS: BP 156/98; PULSE 72; RESP 16; TEMP 98.4; O2SAT 100
[2016-10-23] MEDS ORDERED: OMEP40CA2 PO (00:22)
--- NOTE | 2016-10-23 00:23 | PD ---
HPI Chief Complaint: Abdominal Pain Time Seen by Provider: 00:02 Travel History International Travel<30 days: No Contact w/Intl Traveler<30days: No Traveled to known affect area: No History of Present Illness HPI 36-year-old female here with complaint of abdominal pain and shortness of breath. Patient has had approximately 2-3 weeks of epigastric abdominal pain. Some occasional nausea with oral intake but no vomiting. No diarrhea. She states that the only thing that seems to make the pain better is her Lortab prescribed in previous ER visit. She also complains of shortness of breath, worse with exertion. No cough or chest congestion. Patient has been seen here in emergency department twice recently for the same symptoms. She has had extensive workup with x-rays of the chest 2, CT abdomen and pelvis, gallbladder ultrasound, basic labs as well as hepatobiliary function, lipase, d- dimer 2, troponin, BNP, etc. that have all been negative. Patient states that she has a history of "6 bleeding ulcers", and this feels somewhat similar though she's not had any blood. She does have an appointment with her GI but this is not until November. She takes Zantac but is not on a PPI at home. 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 She has not had any increased in edema, and no chest pain. PFSH Past Medical History Hx Anticoagulant Therapy: Yes (PLAVIX) Anemia: Yes (IRON-DEFICIENCY) Bipolar Disorder: Yes Anxiety: Yes Depression: Yes Heart Rhythm Problems: Yes (IRREGULAR HEART BEAT) Cardiac Catheterization: No Cardiomyopathy: Yes Cardiovascular Problems: Yes (CARDIOMYOPATHY) High Cholesterol: Yes Congestive Heart Failure: No Cerebrovascular Accident: Yes (TIA X 4) Diabetes: No Diminished Hearing: No Fibromyalgia: Yes GERD: Yes Genitourinary: Yes (UTI) Heparin Induced Thrombocytopen: No Hypertension: Yes Musculoskeletal: Yes (CHRONIC BACK PAIN) Respiratory: Yes (BRONCHITIS ) Immunizations Current: Yes Migraines: Yes Myocardial Infarction: No Ulcer: Yes ?: Not : 3 Para: 3 Miscarriage: 0 : 0 Past Surgical History Abdominal Surgery: Yes ("BEADS" PLACED IN ABD TO REDUCE BLEEDING ) Body Medical Devices: HYPER LIPID Section: Yes Coronary Artery Bypass Graft: No Hysterectomy: Yes (TOTAL) Other Surgery: Yes (LEFT GREAT TOE) Family History Family Myocardial Infarction: Yes Social History Alcohol Use: No Tobacco Use: No Substance Use: No Allergies-Medications (Allergen,Severity, Reaction): Coded Allergies: Bees (Verified Allergy, Severe, Swelling, 10/22/16) Citric Acid (Verified Allergy, Intermediate, itching, 10/22/16) Cultivated Oat Pollen (Verified Allergy, Mild, SNEEZING, 10/22/16) Reported Meds & Prescriptions Reported Meds & Active Scripts Active Omeprazole 40 Mg Cap 40 Mg PO DAILY Lortab (Hydrocodone-Acetaminophen) 5-325 Mg Tab 1 Tab PO Q6H PRN Plavix (Clopidogrel Bisulfate) 75 Mg Tab 75 Mg PO DAILY Reported Zofran Odt (Ondansetron Odt) 4 Mg Tab 4 Mg SL Q6HR PRN Flonase Nasal [place] (Fluticasone Nasal [place]) 50 Mcg/Act [place] 50 Mcg EACH NARE BID Claritin (Loratadine) 10 Mg Cap 10 Mg PO DAILY Topiramate 25 Mg Tab 25 Mg PO BID Proair Hfa 8.5 GM Inh (Albuterol Sulfate) 90 Mcg/Act Aer 2 Puff INH Q4-6H PRN 108 mcg/actuation Srnjaainqr-Zpfgenhmefgqc-Tfbveixv 50-325-40 Mg Tab 1 Tab PO Q6HR PRN Do not exceed 6 tablets/day. Ibuprofen 400 Mg Tab 400 Mg PO DAILY PRN Atorvastatin (Atorvastatin Calcium) 80 Mg Tab 80 Mg PO HS Loperamide (Loperamide HCl) 2 Mg Tablet 2 Mg PO TID PRN Trazodone (Trazodone HCl) 50 Mg Tab 200 Mg PO HS Baclofen 10 Mg Tab 10 Mg PO BID Carafate (Sucralfate) 1 Gm Tab 1 Gm PO DAILY On empty stomach Bentyl (Dicyclomine HCl) 10 Mg Cap 10 Mg PO BID PRN Aspirin DR (Aspirin) 81 Mg Tabdr 81 Mg PO DAILY Norvasc (Amlodipine Besylate) 5 Mg Tab 5 Mg PO DAILY Lexapro (Escitalopram Oxalate) 20 Mg Tab 20 Mg PO DAILY Zetia (Ezetimibe) 10 Mg Tab 10 Mg PO DAILY Abilify (Aripiprazole) 2 Mg Tab 2 Mg PO DAILY Review of Systems Except as stated in HPI: all other systems reviewed are Neg Physical Exam Narrative GENERAL: Morbidly obese female in no acute distress SKIN: Focused skin assessment warm/dry. HEAD: Normocephalic. EYES: Pupils equal and round. No scleral icterus. No injection or drainage. ENT: Mucous membranes pink and moist. NECK: Supple CARDIOVASCULAR: Regular rate and rhythm. No murmur appreciated. RESPIRATORY: No accessory muscle use. Clear to auscultation. Decreased lung sounds throughout. GASTROINTESTINAL: Morbidly obese with minimal epigastric tenderness to palpation without rebound or guarding MUSCULOSKELETAL: No obvious deformities. No edema. NEUROLOGICAL: Awake and alert. Normal speech. PSYCHIATRIC: Appropriate mood and affect; insight and judgment normal. Data Data Last Documented VS Vital Signs Date Time Temp Pulse Resp B/P Pulse Ox O2 Delivery O2 Flow Rate FiO2 10/22/16 22:29 98.4 72 16 156/98 100 Room Air [facility] Medical Decision Making Medical Screen Exam Complete: Yes Emergency Medical Condition: Yes Medical Record Reviewed: Yes Differential Diagnosis 36-year-old female here with complaint of 2-3 weeks of epigastric abdominal pain and shortness of breath. Patient has had extensive workup in the emergency department 2 that shows no evidence of pancreatitis, hepatobiliary pathology, heart failure, PE, ACS. I suspect that there is a component of gastritis versus peptic ulcer, especially given her history of reported ulcer. She is only on a H2 joy and would certainly benefit from a PPI. With regards to her shortness of breath, this sounds chronic in nature but is worsened over the last 2-3 weeks. Given her history of cardiomyopathy, a repeat echo to evaluate her ejection fraction is certainly warranted that she does not have any evidence of florid new onset heart failure. Narrative Course Given patient's extensive workup in the ED recently 2 are do not think any further workup is warranted emergently at this time. The symptoms are chronic and not any worse today than they have been over the last 2-3 weeks. Patient was encouraged to start PPI and given a prescription for omeprazole. Encouraged to follow-up with GI and cardiology as an outpatient. Diagnosis Primary Impression: Epigastric abdominal pain Additional Impression: Dyspnea Qualified Code: R06.02 - Shortness of breath Referrals: Director Of Grants call for appointment Welding Equipment Repairer call for appointment Primary Care Physician call for appointment Additional Instructions: Antacid as prescribed. Follow-up with GI for likely endoscopy and cardiology for likely echo as discussed. Med/Other Pt SpecificInfo: Prescription(s) given Scripts Omeprazole 40 Mg Cap40 Mg PO DAILY #30 CAP Ref 0 Prov:Elizabeth Hollis MD 10/23/16 Disposition: 01 DISCHARGE HOME Condition: Stable Elizabeth Hollis MD Oct 23, 2016 00:23
== END 2016-10-23 00:51 | disposition home or self-care (01) ==
LOC: NEPE 22:25
DX: R10.13 Epigastric pain (principal); R06.02 Shortness of breath
CPT/HCPCS: 99283

== ENCOUNTER 2016-12-25 10:39 | Observation (INO) | payer MEDICAID ==
[~2016-12-25] VITALS: Ht 152.4 cm; Wt 120.0 kg
[2016-12-25] VITALS (7 sets, daily range): BP systolic 106–183; BP diastolic 61–103; PULSE 55–81; RESP 16–18; TEMP 96.9–98.5; O2SAT 96–98
[~2016-12-25 10:39] MED LIST changes: +ALBU1AER5 INH; +BUTA1CAP PO; +LOMO2.5T PO; +OMEP40CA2 PO
[2016-12-25] MEDS ORDERED: PROCHLORPERAZINE INJ 10 MG/2 ML VIAL IV PUSH ONE (12:00)
[2016-12-25] MEDS ORDERED: SODIUM CHLOR 0.9% 1000 ML INJ 1,000 ML IV ONE ×2 (12:00→15:00)
[2016-12-25] MEDS ORDERED: diphenhydrAMINE HCL 50 MG/ML VIAL IV PUSH ONE (12:00)
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
[2016-12-25 12:39] LABS: BASOPHIL % 0.4 % (0.0-2.0); EOSINOPHIL # 0.1 TH/MM3 (0-0.4); EOSINOPHIL % 1.3 % (0.0-4.0); HEMATOCRIT 39.7 % (35.0-46.0); HEMO FLAGS DIFF FINAL; LYMPH % 25.2 % (9.0-44.0); LYMPHOCYTE # 2.3 TH/MM3 (1.0-4.8); MEAN CELL VOLUME 86.2 FL (80.0-100.0); MEAN CORPUSCULAR HEMOGLOBIN 28.7 PG (27.0-34.0); MEAN CORPUSCULAR HGB CONC 33.3 % (32.0-36.0); MONO % 6.2 % (0.0-8.0); NEUT % 66.9 % (16.0-70.0); PLATELET COUNT 241 TH/MM3 (150-450); RED BLOOD COUNT 4.61 MIL/MM3 (4.00-5.30); RED CELL DISTRIBUTION WIDTH 13.4 % (11.6-17.2)
--- NOTE | 2016-12-25 13:09 | RADRPT ---
EXAM DATE/TIME: 12/25/2016 12:56 [facility] COMPARISON: CT BRAIN W/O CONTRAST, August 04, 2016, 15:07. INDICATIONS : Tingling in face. RADIATION DOSE: 56.35 CTDIvol (mGy) MEDICAL HISTORY : Hypertension. Seizures. SURGICAL HISTORY : Hysterectomy. ENCOUNTER: Initial ACUITY: 3 days PAIN SCALE: 0/10 LOCATION: cranial TECHNIQUE: Multiple contiguous axial images were obtained of the head. Using automated exposure control and adj ustment of the mA and/or kV according to patient size, radiation dose was kept as low as reasonably a chievable to obtain optimal diagnostic quality images. DICOM format image data is available electro nically for review and comparison. FINDINGS: CEREBRUM: The ventricles are normal for age. No evidence of midline shift, mass lesion, hemorrhage or acute in farction. No extra-axial fluid collections are seen. POSTERIOR FOSSA: The cerebellum and brainstem are intact. The 4th ventricle is midline. The cerebellopontine angle i s unremarkable. EXTRACRANIAL: The visualized portion of the orbits is intact. SKULL: The calvaria is intact. No evidence of skull fracture. CONCLUSION: 1. No acute intracranial abnormality or significant interval change. Yohan Jones MD on December 25, 2016 at 13:06 Board Certified Radiologist. This report was verified electronically.
[2016-12-25 13:12] LABS: ALT (GPT) 26 U/L (10-53); ANION GAP 7 MEQ/L (5-15); AST (GOT) 18 U/L (15-37); BICARBONATE 20.8 MEQ/L (21.0-32.0); BLOOD UREA NITROGEN 18 MG/DL (7-18); CHLORIDE 110 MEQ/L (98-107); GLOMERULAR FILTRATION RATE 77 ML/MIN (>89); POTASSIUM 3.9 MEQ/L (3.5-5.1); SODIUM (NA) 138 MEQ/L (136-145)
[2016-12-25 13:15] LABS: ALKALINE PHOSPHATASE 116 U/L (45-117); CREATINE KINASE 321 U/L (26-192); TOTAL BILIRUBIN ADULT 0.7 MG/DL (0.2-1.0)
[2016-12-25 13:27] LABS: CKMB 1.5 NG/ML (0.5-3.6)
[2016-12-25] MEDS ORDERED: ASPIRIN 81 MG CHEW TAB CHEW ONE (13:45)
[2016-12-25] MEDS ORDERED: GADODIAMIDE PF 287 MG/ML 20 ML VIAL (for RAD MRI) IVCONTRAST ONE (13:57)
[2016-12-25] MEDS ORDERED: OMEP20TA PO (14:05)
[2016-12-25] MEDS ORDERED: DULE100A INH (14:05)
[2016-12-25 14:11] LABS: APTT (PATIENT) 30.4 SEC (24.3-30.1); INTERNATIONAL NORMALIZED RATIO 0.9 RATIO; PROTHROMBIN TIME - PATIENT 10.2 SEC (9.8-11.6)
[2016-12-25] MEDS ORDERED: ALBUTEROL SULFATE 90 MCG/ACT HFA 8 GM INHALER INH PRN (15:00)
--- NOTE | 2016-12-25 15:04 | HHI.HP ---
[facility] Service [facility] Primary Care Physician Vicente Stanford D.O. Admission Diagnosis TIA Diagnoses: (1) TIA (transient ischemic attack) Diagnosis: Principal Chief Complaint: right upper extremity weakness Travel History International Travel<30 Days: No Contact w/Intl Traveler <30 Da: No Traveled to Known Affected Are: No History of Present Illness patient is a 36 y/o female with history of TIA,hypertension,dyslipidemia,COPD, cardiomyopathy presented to ER with right upper extremity weakness. she says that she started to have some tingling and weakness of the right arm two days ago. she denies any vision changes, slurred speech or focal weakness of the lower extremities. she was admitted to this hospital few months ago with TIA and after a full work-up , she was told to have a f/u with neurologist. she says that she has an appointment with neurologist this month. Review of Systems Constitutional: DENIES: Fever, Weight loss, Chills, Night Sweats Eyes: DENIES: Blurred vision, Diplopia, Vision loss, Double Vision Ears, nose, mouth, throat: DENIES: Tinnitus, Vertigo, Throat pain, Epistaxis Respiratory: DENIES: Apneas, Cough, Snoring, Wheezing, Hemoptysis, Sputum production, Shortness of breath Cardiovascular: DENIES: Chest pain, Palpitations, Syncope, Dyspnea on Exertion , PND, Lower Extremity Edema, Orthopnea, Claudication Gastrointestinal: DENIES: Abdominal pain, Black stools, Bloody stools, Constipation, Diarrhea, Nausea, Vomiting, Difficulty Swallowing, Anorexia Genitourinary: DENIES: Urinary frequency, Urgency, Hematuria, Dysuria Musculoskeletal: DENIES: Joint pain, Muscle aches, Stiffness, Joint Swelling Integumentary: DENIES: Rash Neurologic: COMPLAINS OF: Localized weakness (right upper extremity.), DENIES: Abnormal gait, Headache, Paresthesias, Seizures, Speech Problems, Tremor, Poor Balance Psychiatric: DENIES: Anxiety, Confusion, Mood changes, Depression, Hallucinations, Agitation, Suicidal Ideation, Homicidal Ideation, Delusions Past Family Social History Past Medical History TIA hypertension dyslipidemia COPD Past Surgical History hysterectomy toe reconstruction Reported Medications Fioricet (Njrjsxnmch-Swonlpvlnrxad-Lkfxlaad) 50-300-40 Mg Cap 1-2 Cap PO Q6H PRN Omeprazole 40 Mg Cap 40 Mg PO DAILY Lomotil (Diphenoxylate-Atropine) 2.5-0.025 Mg Tab 2 Tab PO Q6H PRN Plavix (Clopidogrel Bisulfate) 75 Mg Tab 75 Mg PO DAILY Zofran Odt (Ondansetron Odt) 4 Mg Tab 4 Mg SL Q6HR PRN Flonase Nasal [place] (Fluticasone Nasal [place]) 50 Mcg/Act [place] 50 Mcg EACH NARE BID Claritin (Loratadine) 10 Mg Cap 10 Mg PO DAILY Topiramate 25 Mg Tab 25 Mg PO BID Proair Hfa 8.5 GM Inh (Albuterol Sulfate) 90 Mcg/Act Aer 2 Puff INH Q4-6H PRN 108 mcg/actuation Ibuprofen 400 Mg Tab 400 Mg PO DAILY PRN Atorvastatin (Atorvastatin Calcium) 80 Mg Tab 80 Mg PO HS Loperamide (Loperamide HCl) 2 Mg Tablet 2 Mg PO TID PRN Trazodone (Trazodone HCl) 50 Mg Tab 200 Mg PO HS Baclofen 10 Mg Tab 10 Mg PO BID Carafate (Sucralfate) 1 Gm Tab 1 Gm PO DAILY On empty stomach Bentyl (Dicyclomine HCl) 10 Mg Cap 10 Mg PO BID PRN Aspirin DR (Aspirin) 81 Mg Tabdr 81 Mg PO DAILY Norvasc (Amlodipine Besylate) 5 Mg Tab 5 Mg PO DAILY Lexapro (Escitalopram Oxalate) 20 Mg Tab 20 Mg PO DAILY Zetia (Ezetimibe) 10 Mg Tab 10 Mg PO DAILY Abilify (Aripiprazole) 2 Mg Tab 2 Mg PO DAILY Allergies: Coded Allergies: bee venom protein (honey bee) (Verified Allergy, Severe, Swelling, 12/25/16 ) citric acid (Verified Allergy, Intermediate, itching, 12/25/16) grass pollen (Verified Allergy, Mild, SNEEZING, 12/25/16) Uncoded Allergies: DENTURE ADHESIVES (Adverse Reaction, Severe, Ulcers, 12/09/16) Active Ordered Medications Current Medications Sodium Chloride (NS Flush) 2 ml UNSCH PRN IVF FLUSH AFTER USING IV ACCESS; Start 12/25/16 at 12:00 Sodium Chloride 1,000 ml @ 999 mls/hr BOLUS ONCE IV Last administered on 12/25 12:58; Start 12/25/16 at 12:00; Stop 12/25/16 at 13:00; Status DC Prochlorperazine Edisylate (Compazine Inj) 10 mg ONCE ONCE IV PUSH Last administered on 12/25/16 12:58; Start 12/25/16 at 12:00; Stop 12/25/16 at 12:01 ; Status DC Diphenhydramine HCl (Benadryl Inj) 25 mg ONCE ONCE IV PUSH Last administered on 12/25/16 12:58; Start 12/25/16 at 12:00; Stop 12/25/16 at 12:01; Status DC Aspirin (Aspirin Chew) 162 mg ONCE ONCE CHEW ; Start 12/25/16 at 13:45; Stop at 13:51; Status DC Family History heart disease in mother. Social History no smoking, drinking or drug abuse. Physical Exam Vital Signs Vital Signs Date Time Temp Pulse Resp B/P (MAP) Pulse Ox O2 Delivery O2 Flow Rate FiO2 12/25/16 12:53 63 16 124/74 (91) 98 Room Air 12/25/16 12:50 100 Room Air 12/25/16 10:42 98.4 81 16 183/103 (129) 98 Physical Exam GENERAL: This is a well-nourished, well-developed patient, in no apparent distress. SKIN: No rashes, ecchymoses or lesions. Cool and dry. HEAD: Atraumatic. Normocephalic. No temporal or scalp tenderness. EYES: Pupils equal round and reactive. Extraocular motions intact. No scleral icterus. No injection or drainage. ENT: Nose without bleeding, purulent drainage or septal hematoma. Throat without erythema, tonsillar hypertrophy or exudate. Uvula midline. Airway patent. NECK: Trachea midline. No JVD or lymphadenopathy. Supple, nontender, no meningeal signs. CARDIOVASCULAR: Regular rate and rhythm without murmurs, gallops, or rubs. RESPIRATORY: Clear to auscultation. Breath sounds equal bilaterally. No wheezes , rales, or rhonchi. GASTROINTESTINAL: Abdomen soft, non-tender, nondistended. No hepato-splenomegaly , or palpable masses. No guarding. MUSCULOSKELETAL: Extremities without clubbing, cyanosis, or edema. No joint tenderness, effusion, or edema noted. No calf tenderness. Negative Homans sign bilaterally. NEUROLOGICAL: Awake and alert. some weakness of the right upper extremity. Laboratory Laboratory Tests Test 12/25/16 12:15 12/25/16 13:15 White Blood Count 9.0 Red Blood Count 4.61 Hemoglobin 13.2 Hematocrit 39.7 Mean Corpuscular Volume 86.2 Mean Corpuscular Hemoglobin 28.7 Mean Corpuscular Hemoglobin Concent 33.3 Red Cell Distribution Width 13.4 Platelet Count 241 Mean Platelet Volume 9.3 Neutrophils (%) (Auto) 66.9 Lymphocytes (%) (Auto) 25.2 Monocytes (%) (Auto) 6.2 Eosinophils (%) (Auto) 1.3 Basophils (%) (Auto) 0.4 Neutrophils # (Auto) 6.0 Lymphocytes # (Auto) 2.3 Monocytes # (Auto) 0.6 Eosinophils # (Auto) 0.1 Basophils # (Auto) 0.0 CBC Comment DIFF FINAL Differential Comment Blood Urea Nitrogen 18 Creatinine 0.83 Random Glucose 99 Total Protein 8.2 Albumin 4.0 Calcium Level 9.5 Alkaline Phosphatase 116 Aspartate Amino Transf (AST/SGOT) 18 Alanine Aminotransferase (ALT/SGPT) 26 Total Bilirubin 0.7 Sodium Level 138 Potassium Level 3.9 Chloride Level 110 Carbon Dioxide Level 20.8 Anion Gap 7 Estimat Glomerular Filtration Rate 77 Total Creatine Kinase 321 Creatine Kinase MB 1.5 Creatine Kinase MB % 0.5 Troponin I LESS THAN 0.02 Prothrombin Time 10.2 Prothromb Time International Ratio 0.9 Activated Partial Thromboplast Time 30.4 Result Diagram: 12/25/16 1215 12/25/16 1215 Imaging Last Impressions Head CT 12/25/16 1151 Signed Impressions: Service Date/Time: Sunday, December 25, 2016 12:56 - CONCLUSION: 1. No acute intracranial abnormality or significant interval change. Yohan Jones MD EKG; sinus bradycardia with no acute ST-T changes. Caprini VTE Risk Assessment Caprini VTE Risk Assessment: Mod/High Risk (score >= 2) Caprini Risk Assessment Model Point Value = 1 Point Value = 2 Point Value = 3 Point Value = 5 Age 41-60 Minor surgery BMI > 25 kg/m2 Swollen legs Varicose veins or History of unexplained or recurrent spontaneous Oral contraceptives or hormone replacement Sepsis (< 1 month) Serious lung disease, including pneumonia (< 1 month) Abnormal pulmonary function Acute myocardial infarction Congestive heart failure (< 1 month) History of inflammatory bowel disease Medical patient at bed rest Age 61-74 Arthroscopic surgery Major open surgery (> 45 min) Laparoscopic surgery (> 45 min) Malignancy Confined to bed (> 72 hours) Immobilizing plaster cast Central venous access Age >= 75 History of VTE Family history of VTE Factor V Leiden Prothrombin [id number] Lupus anticoagulant Anticardiolipin antibodies Elevated serum homocysteine Heparin-induced thrombocytopenia Other congenital or acquired thrombophilia Stroke (< 1 month) Elective arthroplasty Hip, pelvis, or leg fracture Acute spinal cord injury (< 1 month) Prophylaxis Regimen Total Risk Factor Score Risk Level Prophylaxis Regimen 0-1 Low Early ambulation 2 Moderate Order ONE of the following: *Sequential Compression Device (SCD) *Heparin 5000 units SQ BID 3-4 Higher Order ONE of the following medications: *Heparin 5000 units SQ TID *Enoxaparin/Lovenox 40 mg SQ daily (WT < 150 kg, CrCl > 30 mL/min) *Enoxaparin/Lovenox 30 mg SQ daily (WT < 150 kg, CrCl > 10-29 mL/min) *Enoxaparin/Lovenox 30 mg SQ BID (WT < 150 kg, CrCl > 30 mL/min) AND/OR *Sequential Compression Device (SCD) 5 or more Highest Order ONE of the following medications: *Heparin 5000 units SQ TID (Preferred with Epidurals) *Enoxaparin/Lovenox 40 mg SQ daily (WT < 150 kg, CrCl > 30 mL/min) *Enoxaparin/Lovenox 30 mg SQ daily (WT < 150 kg, CrCl > 10-29 mL/min) *Enoxaparin/Lovenox 30 mg SQ BID (WT < 150 kg, CrCl > 30 mL/min) AND *Sequential Compression Device (SCD) Assessment and Plan Assessment and Plan A/P - right upper extremity weakness continue aspirin, plavix- consult OT- consult neurology of note the patient was admitted to this hospital a few months ago with TIA and had a full work-up at the time. -hypertension/ dyslipidemia; resume home meds -COPD; continue home inhalers -DVT prophylaxis with Lovenox Discussed Condition With ER physician and the patient. Problem Qualifiers (1) TIA (transient ischemic attack): Qualified Codes: G45.9 - Transient cerebral ischemic attack, unspecified Jennifer Harkins MD Dec 25, 2016 15:04
[2016-12-25 15:14] LABS: BACTERIA, URINE FEW /hpf; BLOOD, URINE NEG (NEG); GLUCOSE,URINE NEG (NEG); KETONE, URINE NEG (NEG); MUCUS URINE FEW /lpf (OCC); NITRITE,URINE NEG (NEG); SQUAMOUS EPITHELIAL CELL URINE <1 /hpf (0-5); URINE COLOR YELLOW (YELLW/STRAW)
[2016-12-25 15:18] LABS: COMMENT (UR) CATH-CULTURE IND; CULTURE IF INDICATED CATH CULTURE IND
[2016-12-25] MEDS: traZODone HCL 50 MG TAB PO SCH (21:00)
[2016-12-25] MEDS ORDERED: NON-FORMULARY DRUG (Mometasone-Formoterol 120 Act Inh (Dulera 120 Act Inh) 2 PUFF) INH SCH (21:00)
[2016-12-25] MEDS: ATORVASTATIN 80 MG TAB PO SCH (21:00)
[2016-12-25] MEDS: TOPIRAMATE 25 MG TAB PO SCH (21:01)
--- NOTE | 2016-12-25 22:54 | MB ---
cc: JENNIFERYULISSA DATE OF CONSULTATION 12/25/16 HISTORY OF PRESENT ILLNESS A 36-year-old right-handed woman with a history of hypertension, hypercholesterolemia, possibly some slight liver problems, peptic ulcer disease, some tics, some depression, three miscarriages. No blood clots. She does take a baby aspirin a day. She was actually in here and saw Dr. Bonds in July of this year. 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 She came in with numbness and weakness on the right side for the past month, usually a little bit on the face and then the arm and leg. She feels like the right side is heavy. She had a negative work up including MRI of the brain, MRA osage Sharma and neck in July, seen by Dr. Bonds. She had been on aspirin and then she had a headache and these episodes usually come on after headache but she does have about three headaches a day for which she takes Fioricet. I told her the Fioricet is not good as it causes rebound headaches. She has been on Topamax in the past which seemed to help her headaches, so we are going to restart her on that. Nevertheless, she had a headache for a whole day 2 days ago and then developed tingling on the right, a little bit on the face but on the arm and leg and felt it was heavier. Her headaches are three times a day, bifrontal, throbbing. No scintillations. She gets those frequently. PAST MEDICAL HISTORY Some bronchitis, chronic back pain, iron deficiency. SOCIAL HISTORY Not a smoker or a drinker. No drugs. Lives with her mother. FAMILY HISTORY Positive for cancer. Negative for seizure. Positive stroke. ALLERGIES ALLERGIC TO BEES, CITRIC ACID, OATS. History of possible cardiomyopathy. MEDICATIONS She is on: 1. Lortab. 2. Fioricet. 3. Omeprazole. 4. Lomotil. 5. Plavix 75 a day. 6. Zofran. 7. Flonase. 8. Claritin. 9. Topamax 25 b.i.d. 10. ProAir. 11. Ibuprofen. 12. Atorvastatin. 13. Loperamide. 14. Trazodone. 15. Baclofen 10 b.i.d. 16. Carafate. 17. Bentyl. 18. 81 of aspirin. 19. Norvasc. 20. Lexapro. 21. Zetia. 22. Abilify. PHYSICAL EXAMINATION VITAL SIGNS: On exam afebrile, 64, 18, 106/61. There were no carotid bruits. HEART: Heart was regular rhythm. I did not detect a murmur. GENERAL: She is obese. NEURO: Pupils are equal. Visual ellis are full. Extraocular movements intact without nystagmus. Face symmetric, normal sensation. Tongue was midline. There is no drift. She had normal strength at best testing in upper and lower extremities bilaterally. DTRs are trace throughout. Toes downgoing bilaterally. Pinprick is intact throughout including the right hand. Fast finger movements are symmetric and normal including the right hand. She is not ataxic on [id number]. A little bit of tremor in the right hand initially and that went away as the examination went on. LABORATORY DATA Urine drug screen was negative in 2005. UA on this admission is essentially normal. Coags have been normal in the past. Basic metabolic profile here normal. LFTs normal. CPK 321. Troponin negative. TSH normal in July. She no longer gets her period evidently. LDL cholesterol high in July, 154. IMAGING STUDIES MRI of the brain, osage of Sharma and neck normal as noted as was the carotid ultrasound in July of this year. IMPRESSION I think more than likely these are complicated migraines. I reviewed the MRI film, there was no new or old stroke at that time, was entirely normal. History of headaches. I am going to recheck her MRI of the brain and MR venogram of the brain and do a hypercoag screen on her, some additional blood work. She actually is already taking Topamax so we will put her on, try some verapamil. I will be following her with you in the hospital. I note her highest blood pressure was 183/103, so the ___ would be good for her and I will switch the Norvasc to verapamil. Also, check an MRI of her cervical spine. Will also check an echo and Holter on her. If the MRI, MR venograms are negative and her echo was normal and the Holter has been on then she could be discharged. MD ELIGIO Hearn/RIMA /8:50 PM /10:23 PM
--- NOTE | 2016-12-25 23:00 | RADRPT ---
EXAM DATE/TIME: 12/25/2016 22:16 [facility] COMPARISON: No previous studies available for comparison. INDICATIONS : Right side weakness. MEDICAL HISTORY : Chronic obstructive pulmonary disease. Hypertension. Hypercholesterolemia. SURGICAL HISTORY : Hysterectomy. section. ENCOUNTER: Initial ACUITY: 1 day PAIN SCORE: 0/10 LOCATION: Paraspinal TECHNIQUE: Multiplanar, multisequence MRI examination of the cervical spine was performed. FINDINGS: VERTEBRAE: Normal vertebral body height. Homogeneous marrow signal. ALIGNMENT: No evidence of subluxation. CORD: Normal configuration and signal. POST FOSSA: The cerebellar tonsils are normal in position. C2-C3: The thecal sac has a normal configuration. There is no evidence of disc herniation or spinal canal s tenosis. The neural foramina are patent bilaterally. C3-C4: There is slight bulging of the disc annulus without significant foraminal or spinal stenosis. C4-C5: The thecal sac has a normal configuration. There is no evidence of disc herniation or spinal canal s tenosis. The neural foramina are patent bilaterally. C5-C6: The thecal sac has a normal configuration. There is no evidence of disc herniation or spinal canal s tenosis. The neural foramina are patent bilaterally. C6-C7: The thecal sac has a normal configuration. There is no evidence of disc herniation or spinal canal s tenosis. The neural foramina are patent bilaterally. C7-T1: The thecal sac has a normal configuration. There is no evidence of disc herniation or spinal canal s tenosis. The neural foramina are patent bilaterally. CONCLUSION: Slight bulging of the disc annulus at C3/C4. Otherwise essentially normal MRI of the cervical spine. No foraminal or spinal stenosis. Ivan Beltran MD on December 25, 2016 at 22:58 Board Certified Radiologist. This report was verified electronically.
--- NOTE | 2016-12-25 23:10 | RADRPT ---
EXAM DATE/TIME: 12/25/2016 22:16 [facility] COMPARISON: No previous studies available for comparison. INDICATIONS : Right sided weakness. CONTRAST: 20 cc Omniscan (gadodiamide) IV MEDICAL HISTORY : Chronic obstructive pulmonary disease. Hypertension. Hypercholesterolemia. SURGICAL HISTORY : Hysterectomy. section. ENCOUNTER: Initial ACUITY: 1 day PAIN SCORE: 0/10 LOCATION: cranial Please note a normal MRA of the brain does not entirely exclude the possibility of a small aneurysm, nor the possibility of distal intracranial vessel disease. TECHNIQUE: MR venography of the brain was performed with multiplanar and 3D reconstructions. FINDINGS: Dural sinuses are all patent. CONCLUSION: Negative exam. Dural sinuses are all patent. Sundeep Valenzuela MD on December 25, 2016 at 23:08 Board Certified Radiologist. This report was verified electronically.
--- NOTE | 2016-12-25 23:19 | RADRPT ---
EXAM DATE/TIME: 12/25/2016 22:16 [facility] COMPARISON: No previous studies available for comparison. INDICATIONS : Right sided weakness. CONTRAST: 20 cc Omniscan (gadodiamide) IV MEDICAL HISTORY : Chronic obstructive pulmonary disease. Hypercholesterolemia. Hypertension. SURGICAL HISTORY : Hysterectomy. section. ENCOUNTER: Initial ACUITY: 1 day PAIN SCORE: 10 LOCATION: cranial TECHNIQUE: Multiplanar, multisequence MRI of the brain was performed both prior to and following the administrat ion of paramagnetic contrast. FINDINGS: CEREBRUM: The ventricles are normal for age. No evidence of midline shift, mass lesion, hemorrhage or acute in farction. No extraaxial fluid collections are seen. The pituitary gland and suprasellar cistern are normal in configuration. WHITE MATTER: No significant signal abnormalities are seen in the white matter. POSTERIOR FOSSA: The cerebellum and brainstem are intact. The 4th ventricle is midline. The cerebellopontine angle is unremarkable. The cerebellar tonsils are normal in position. DIFFUSION IMAGING: No focal areas of restricted diffusion are seen. No evidence of acute infarction. EXTRACRANIAL: The visualized portions of the orbits and paranasal sinuses are unremarkable. POST-CONTRAST: No abnormal areas of parenchymal or dural enhancement. No evidence of blood-brain barrier breakdown. CONCLUSION: Negative exam. Sundeep Valenzuela MD on December 25, 2016 at 23:16 Board Certified Radiologist. This report was verified electronically.
[2016-12-26] VITALS (12 sets, daily range): BP systolic 104–128; BP diastolic 58–66; PULSE 62–85; RESP 16–20; TEMP 96.8–98.7; O2SAT 95–98
--- NOTE | 2016-12-26 07:48 | HHI.PR ---
Subjective Remarks sr no more spells Objective Vital Signs Date Time Temp Pulse Resp B/P (MAP) Pulse Ox O2 Delivery O2 Flow Rate FiO2 12/26/16 03:55 70 12/26/16 03:39 98.7 63 18 114/66 (82) 97 12/26/16 00:28 97.9 65 20 104/58 (73) 98 12/25/16 23:05 59 12/25/16 20:10 73 12/25/16 19:41 98.5 64 18 106/61 (76) 97 12/25/16 17:43 57 12/25/16 15:44 96.9 55 18 123/63 (83) 96 12/25/16 15:20 12/25/16 12:53 63 16 124/74 (91) 98 Room Air 12/25/16 12:50 100 Room Air 12/25/16 10:42 98.4 81 16 183/103 (129) 98 I/O 12/25/16 12/25/16 12/25/16 12/26/16 12/26/16 12/26/16 07:00 15:00 23:00 07:00 15:00 23:00 Intake Total 1000 ml Balance 1000 ml Intake IV Total 1000 ml # Voids 1 1 Result Diagram: 12/25/16 1215 12/25/16 1215 Objective Remarks awake alert /5/5 speech nl face nl Assessment and Plan Assessment and Plan imp mri brain mrv and mri c spine nl labs pend if eeg done and echo neg and esr nl can dc later today on lacey louie fu with neuro in [place] about hypercoag screen results Jesus Keene MD Dec 26, 2016 07:48
[2016-12-26] MEDS ORDERED: amLODIPine BESYLATE 5 MG TAB PO SCH (09:00)
[2016-12-26] MEDS ORDERED: MOMETASONE FORMOTEROL INH SCH (09:00)
[2016-12-26] MEDS: ENOXAPARIN SODIUM 40 MG/0.4 ML SYRINGE SQ SCH (09:00)
[2016-12-26] MEDS: SODIUM CHLORIDE 0.9% FLUSH 10 ML FLUSH IVF PRN (09:42)
[2016-12-26] MEDS: ARIPiprazole 2 MG TAB PO SCH (09:42)
[2016-12-26] MEDS: CLOPIDOGREL 75 MG TAB PO SCH (09:43)
[2016-12-26] MEDS: PANTOPRAZOLE SOD 20 MG DELAYED RELEASE TAB PO SCH (09:43)
[2016-12-26] MEDS: VERAPAMIL HCL 120 MG SUSTAINED RELEASE TAB PO SCH (09:43)
[2016-12-26] MEDS: SUCRALFATE 1 GM TAB PO SCH (09:43)
[2016-12-26] MEDS: ESCITALOPRAM OXALATE 20 MG TAB PO SCH (09:43)
[2016-12-26] MEDS: TOPIRAMATE 25 MG TAB PO SCH ×2 (09:43→20:27)
[2016-12-26] MEDS: LORATADINE 10 MG TAB PO SCH (09:43)
[2016-12-26] MEDS: EZETIMIBE 10 MG TAB PO SCH (09:43)
[2016-12-26] MEDS: ASPIRIN EC 81 MG TABEC PO SCH (09:45)
--- NOTE | 2016-12-26 13:00 | EKG ---
Date Performed: 12/25/2016 Time Performed: 12:16:09 PTAGE: 36 years EKG: SINUS BRADYCARDIA BORDERLINE ECG NO PREVIOUS TRACING DOCTOR: Darrin Medina Interpretating Date/Time 12/26/2016 12:58:32
--- NOTE | 2016-12-26 13:46 | HHI.PR ---
Subjective Remarks overall feeling better today. no numbness of the right upper extremity but still with mild weakness. Objective Vitals Vital Signs Date Time Temp Pulse Resp B/P (MAP) Pulse Ox O2 Delivery O2 Flow Rate FiO2 12/26/16 12:06 97.8 70 18 120/60 (80) 96 12/26/16 08:18 96.8 70 20 118/63 (81) 95 12/26/16 08:05 62 12/26/16 03:55 70 12/26/16 03:39 98.7 63 18 114/66 (82) 97 12/26/16 00:28 97.9 65 20 104/58 (73) 98 12/25/16 23:05 59 12/25/16 20:10 73 12/25/16 19:41 98.5 64 18 106/61 (76) 97 12/25/16 17:43 57 12/25/16 15:44 96.9 55 18 123/63 (83) 96 12/25/16 15:20 I/O 12/25/16 12/25/16 12/25/16 12/26/16 12/26/16 12/26/16 07:00 15:00 23:00 07:00 15:00 23:00 Intake Total 1000 ml Balance 1000 ml Intake IV Total 1000 ml # Voids 1 1 Result Diagram: 12/25/165 12/25/161214 Imaging Last Impressions Cervical Spine MRI 12/25/162055 Signed Impressions: Service Date/Time: Sunday, December 25, 2016 22:16 - CONCLUSION: Slight bulging of the disc annulus at C3/C4. Otherwise essentially normal MRI of the cervical spine. No foraminal or spinal stenosis. Ivan Beltran MD Brain MRI 12/25/162055 Signed Impressions: Service Date/Time: Sunday, December 25, 2016 22:16 - CONCLUSION: Negative exam. Sundeep Valenzuela MD Head CT 12/25/16 1151 Signed Impressions: Service Date/Time: Sunday, December 25, 2016 12:56 - CONCLUSION: 1. No acute intracranial abnormality or significant interval change. Yohan Jones MD Head/Brain Mag Res Venography 12/25/16 0000 Signed Impressions: Service Date/Time: Saturday, December 25, 2016 22:16 - CONCLUSION: Negative exam. Dural sinuses are all patent. Sundeep Valenzuela MD Objective Remarks GENERAL: This is a well-nourished, well-developed patient, in no apparent distress. CARDIOVASCULAR: Regular rate and regular rhythm without murmurs, gallops, or rubs. RESPIRATORY: Clear to auscultation. Breath sounds equal bilaterally. No wheezes , rales, or rhonchi. GASTROINTESTINAL: Abdomen soft, non-tender, nondistended. Normal, active bowel sounds MUSCULOSKELETAL: Extremities without clubbing, cyanosis, or edema. NEURO: Alert & Oriented x4 to person, place, time, situation. mild weakness of the right upper extremity. Medications and IVs Current Medications Sodium Chloride (NS Flush) 2 ml UNSCH PRN IVF FLUSH AFTER USING IV ACCESS Last administered on 12/26/16 09:42; Start 12/25/16 at 12:00 Sodium Chloride 1,000 ml @ 999 mls/hr BOLUS ONCE IV Last administered on 12/25 12:58; Start 12/25/16 at 12:00; Stop 12/25/16 at 13:00; Status DC Prochlorperazine Edisylate (Compazine Inj) 10 mg ONCE ONCE IV PUSH Last administered on 12/25/16 12:58; Start 12/25/16 at 12:00; Stop 12/25/16 at 12:01 ; Status DC Diphenhydramine HCl (Benadryl Inj) 25 mg ONCE ONCE IV PUSH Last administered on 12/25/16 12:58; Start 12/25/16 at 12:00; Stop 12/25/16 at 12:01; Status DC Aspirin (Aspirin Chew) 162 mg ONCE ONCE CHEW Last administered on 12/25/16 15 :00; Start 12/25/16 at 13:45; Stop 12/25/16 at 13:51; Status DC Albuterol Sulfate (Proair Hfa Inh) 2 puff Q6HR PRN INH SHORTNESS OF BREATH; Start 12/25/16 at 15:00 Amlodipine Besylate (Norvasc) 5 mg DAILY PO ; Start 12/26/16 at 09:00; Stop at 09:00; Status DC Aripiprazole (Abilify) 2 mg DAILY PO Last administered on 12/26/16 09:42; Start 12/26/16 at 09:00 Aspirin (Ecotrin Ec) 81 mg DAILY PO Last administered on 12/26/16 09:45; Start 12/26/16 at 09:00 Atorvastatin Calcium (Lipitor) 80 mg HS PO Last administered on 12/25/16 21:00 ; Start 12/25/16 at 21:00 Clopidogrel Bisulfate (Plavix) 75 mg DAILY PO Last administered on 12/26/16 09 :43; Start 12/26/16 at 09:00 Escitalopram Oxalate (Lexapro) 20 mg DAILY PO Last administered on 12/26/16 09 :43; Start 12/26/16 at 09:00 EZETIMIBE (Zetia) 10 mg DAILY PO Last administered on 12/26/16 09:43; Start at 09:00 Loratadine (Claritin) 10 mg DAILY PO Last administered on 12/26/16 09:43; Start 12/26/16 at 09:00 Sucralfate (Carafate) 1 gm DAILY PO Last administered on 12/26/16 09:43; Start 12/26/16 at 09:00 Topiramate (Topamax) 25 mg BID PO Last administered on 12/26/16 09:43; Start 12/25/16 at 21:00 Trazodone HCl (Desyrel) 200 mg HS PO Last administered on 12/25/16 21:00; Start 12/25/16 at 21:00 Non-Formulary Medication 2 puff BID INH ; Start 12/25/16 at 21:00; Stop at 23:23; Status DC Pantoprazole Sodium (Protonix) 20 mg DAILY PO Last administered on 12/26/16 09 :43; Start 12/26/16 at 09:00 Sodium Chloride 1,000 ml @ 84 mls/hr [id number] ONCE IV Last administered on 12/25 16:22; Start 12/25/16 at 15:00; Stop 12/26/16 at 02:54; Status DC Enoxaparin Sodium (Lovenox Inj) 40 mg Q24H SQ ; Start 12/26/16 at 09:00 Verapamil HCl (Isoptin Sr) 120 mg DAILY PO Last administered on 12/26/16 09: 43; Start 12/26/16 at 09:00 Gadodiamide (Omniscan Pf Inj) 20 ml STK-MED ONCE IVCONTRAST Last administered on 12/25/16t 13:57; Start 12/25/16 at 13:57; Stop 12/25/16 at 22:23; Status DC Patient Own Medication PT OWN MED: (Mometasone-Formotero... BID INH ; Start at 09:00; Status Future Hold A/P Assessment and Plan A/P - right upper extremity weakness- possible complicated migraine. continue aspirin, plavix- consulted OT- MRI, MRV brain, MRI cervical spine with no acute abnormality. echo , holter and EEG and hypercoagulable state- pending. started on Verapamil- continue Topamax. neurology evaluation appreciated. of note the patient was admitted to this hospital a few months ago with TIA and had a full work-up at the time. -hypertension/ dyslipidemia; resumed home meds -COPD; continue home inhalers -DVT prophylaxis with Lovenox Jennifer Harkins MD Dec 26, 2016 13:46
[2016-12-26] MEDS: traZODone HCL 50 MG TAB PO SCH (20:27)
[2016-12-26] MEDS: ATORVASTATIN 80 MG TAB PO SCH (20:27)
[2016-12-27] VITALS (10 sets, daily range): BP systolic 101–133; BP diastolic 56–66; PULSE 63–76; RESP 17–20; TEMP 98–98.7; O2SAT 93–97
--- NOTE | 2016-12-27 05:34 | MG ---
cc: YULISSA RODRIGUEZ M.D. Lab No: [id number] Date: 12/26/2016 Age: 36 Sex: F Race: NOTE Hyperventilation not performed. Right-sided paresthesias, weakness, numbness, cardiomyopathy, fibromyalgia. MEDICATIONS 1. Aspirin. 2. Plavix. 3. Abilify. 4. Topamax. FINDINGS The recording shows diffuse alpha and beta rhythms. Some 5-6 Hz diffuse slowing is seen. There appears to be some sleep activity. Photic stimulation is performed without significant posterior driving. No epileptiform or seizure activity is noted. There were no hemisphere asymmetries. IMPRESSION Essentially unremarkable sleep EEG. No evidence for focal or diffuse abnormality. MD ELIGIO Hearn/SSB /11:32 PM /5:27 AM
--- NOTE | 2016-12-27 06:56 | HHI.PR ---
Subjective Remarks sr no more spells Objective Vital Signs Date Time Temp Pulse Resp B/P (MAP) Pulse Ox O2 Delivery O2 Flow Rate FiO2 12/27/16 05:32 98.7 74 18 107/61 (76) 97 12/26/16 23:40 98.7 80 18 113/62 (79) 97 12/26/16 23:00 65 12/26/16 21:04 98.4 85 18 120/59 (79) 96 12/26/16 18:29 97.2 80 16 128/60 (82) 97 12/26/16 15:00 81 12/26/16 12:15 69 12/26/16 12:06 97.8 70 18 120/60 (80) 96 12/26/16 08:18 96.8 70 20 118/63 (81) 95 12/26/16 08:05 62 I/O 12/26/16 12/26/16 12/26/16 12/27/16 12/27/16 12/27/16 07:00 15:00 23:00 07:00 15:00 23:00 Intake Total 480 ml Balance 480 ml Intake Oral 480 ml # Voids 2 2 1 Result Diagram: 12/25/16 1215 12/25/16 1215 Objective Remarks awake alert /5/5 speech nl face nl still Assessment and Plan Assessment and Plan imp mri brain mrv and mri c spine nl labs neg so far hyper pend eeg and esr neg if echo neg can dc later today on jay [place] fu with neuro in [place] about hypercoag screen results Jesus Keene MD Dec 27, 2016 06:56
[2016-12-27] MEDS: ARIPiprazole 2 MG TAB PO SCH (08:12)
[2016-12-27] MEDS: VERAPAMIL HCL 120 MG SUSTAINED RELEASE TAB PO SCH (08:12)
[2016-12-27] MEDS: ESCITALOPRAM OXALATE 20 MG TAB PO SCH (08:12)
[2016-12-27] MEDS: SUCRALFATE 1 GM TAB PO SCH (08:12)
[2016-12-27] MEDS: PANTOPRAZOLE SOD 20 MG DELAYED RELEASE TAB PO SCH (08:12)
[2016-12-27] MEDS: LORATADINE 10 MG TAB PO SCH (08:12)
[2016-12-27] MEDS: TOPIRAMATE 25 MG TAB PO SCH ×2 (08:13→21:54)
[2016-12-27] MEDS: ENOXAPARIN SODIUM 40 MG/0.4 ML SYRINGE SQ SCH (08:13)
[2016-12-27] MEDS: CLOPIDOGREL 75 MG TAB PO SCH (08:13)
[2016-12-27] MEDS: ASPIRIN EC 81 MG TABEC PO SCH (08:13)
[2016-12-27] MEDS: EZETIMIBE 10 MG TAB PO SCH (08:14)
--- NOTE | 2016-12-27 13:43 | HHI.PR ---
Subjective Remarks resting comfortably with no distress. numbness/ weakness of the right arm has improved. d/w the RN. Objective Vitals Vital Signs Date Time Temp Pulse Resp B/P (MAP) Pulse Ox O2 Delivery O2 Flow Rate FiO2 12/27/16 12:30 72 12/27/16 11:53 98.0 69 19 112/57 (75) 95 12/27/16 07:55 98.0 76 20 127/66 (86) 97 12/27/16 07:00 66 12/27/16 05:32 98.7 74 18 107/61 (76) 97 12/26/16 23:40 98.7 80 18 113/62 (79) 97 12/26/16 23:00 65 12/26/16 21:04 98.4 85 18 120/59 (79) 96 12/26/16 18:29 97.2 80 16 128/60 (82) 97 12/26/16 15:00 81 I/O 12/26/16 12/26/16 12/26/16 12/27/16 12/27/16 12/27/16 07:00 15:00 23:00 07:00 15:00 23:00 Intake Total 480 ml Balance 480 ml Intake Oral 480 ml # Voids 2 2 1 Result Diagram: 12/25/16 1215 12/25/161214 Imaging Last Impressions Cervical Spine MRI 12/25/162055 Signed Impressions: Service Date/Time: Sunday, December 25, 2016 22:16 - CONCLUSION: Slight bulging of the disc annulus at C3/C4. Otherwise essentially normal MRI of the cervical spine. No foraminal or spinal stenosis. Ivan Beltran MD Brain MRI 12/25/162055 Signed Impressions: Service Date/Time: Sunday, December 25, 2016 22:16 - CONCLUSION: Negative exam. Sundeep Valenzuela MD Head CT 12/25/16 1151 Signed Impressions: Service Date/Time: Sunday, December 25, 2016 12:56 - CONCLUSION: 1. No acute intracranial abnormality or significant interval change. Yohan Jones MD Head/Brain Mag Res Venography 12/25/16 0000 Signed Impressions: Service Date/Time: Sunday, December 25, 2016 22:16 - CONCLUSION: Negative exam. Dural sinuses are all patent. Sundeep Valenzuela MD Objective Remarks GENERAL: This is a well-nourished, well-developed patient, in no apparent distress. CARDIOVASCULAR: Regular rate and regular rhythm without murmurs, gallops, or rubs. RESPIRATORY: Clear to auscultation. Breath sounds equal bilaterally. No wheezes , rales, or rhonchi. GASTROINTESTINAL: Abdomen soft, non-tender, nondistended. Normal, active bowel sounds MUSCULOSKELETAL: Extremities without clubbing, cyanosis, or edema. NEURO: Alert & Oriented x4 to person, place, time, situation. mild weakness of the right upper extremity. Procedures none Medications and IVs Current Medications Sodium Chloride (NS Flush) 2 ml UNSCH PRN IVF FLUSH AFTER USING IV ACCESS Last administered on 12/26/16 09:42; Start 12/25/16 at 12:00 Sodium Chloride 1,000 ml @ 999 mls/hr BOLUS ONCE IV Last administered on 12/25 12:58; Start 12/25/16 at 12:00; Stop 12/25/16 at 13:00; Status DC Prochlorperazine Edisylate (Compazine Inj) 10 mg ONCE ONCE IV PUSH Last administered on 12/25/16 12:58; Start 12/25/16 at 12:00; Stop 12/25/16 at 12:01 ; Status DC Diphenhydramine HCl (Benadryl Inj) 25 mg ONCE ONCE IV PUSH Last administered on 12/25/16 12:58; Start 12/25/16 at 12:00; Stop 12/25/16 at 12:01; Status DC Aspirin (Aspirin Chew) 162 mg ONCE ONCE CHEW Last administered on 12/25/16 15 :00; Start 12/25/16 at 13:45; Stop 12/25/16 at 13:51; Status DC Albuterol Sulfate (Proair Hfa Inh) 2 puff Q6HR PRN INH SHORTNESS OF BREATH; Start 12/25/16 at 15:00 Amlodipine Besylate (Norvasc) 5 mg DAILY PO ; Start 12/26/16 at 09:00; Stop at 09:00; Status DC Aripiprazole (Abilify) 2 mg DAILY PO Last administered on 12/27/16 08:12; Start 12/26/16 at 09:00 Aspirin (Ecotrin Ec) 81 mg DAILY PO Last administered on 12/27/16 08:13; Start 12/26/16 at 09:00 Atorvastatin Calcium (Lipitor) 80 mg HS PO Last administered on 12/26/16 20:27 ; Start 12/25/16 at 21:00 Clopidogrel Bisulfate (Plavix) 75 mg DAILY PO Last administered on 12/27/16 08 :13; Start 12/26/16 at 09:00 Escitalopram Oxalate (Lexapro) 20 mg DAILY PO Last administered on 12/27/16 08 :12; Start 12/26/16 at 09:00 EZETIMIBE (Zetia) 10 mg DAILY PO Last administered on 12/27/16 08:14; Start at 09:00 Loratadine (Claritin) 10 mg DAILY PO Last administered on 12/27/16 08:12; Start 12/26/16 at 09:00 Sucralfate (Carafate) 1 gm DAILY PO Last administered on 12/27/16 08:12; Start 12/26/16 at 09:00 Topiramate (Topamax) 25 mg BID PO Last administered on 12/27/16 08:13; Start 12/25/16 at 21:00 Trazodone HCl (Desyrel) 200 mg HS PO Last administered on 12/26/16 20:27; Start 12/25/16 at 21:00 Non-Formulary Medication 2 puff BID INH ; Start 12/25/16 at 21:00; Stop at 23:23; Status DC Pantoprazole Sodium (Protonix) 20 mg DAILY PO Last administered on 12/27/16 08 :12; Start 12/26/16 at 09:00 Sodium Chloride 1,000 ml @ 84 mls/hr [id number] ONCE IV Last administered on 12/25 16:22; Start 12/25/16 at 15:00; Stop 12/26/16 at 02:54; Status DC Enoxaparin Sodium (Lovenox Inj) 40 mg Q24H SQ ; Start 12/26/16 at 09:00 Verapamil HCl (Isoptin Sr) 120 mg DAILY PO Last administered on 12/27/16 08: 12; Start 12/26/16 at 09:00 Gadodiamide (Omniscan Pf Inj) 20 ml STK-MED ONCE IVCONTRAST Last administered on 12/25/16t 13:57; Start 12/25/16 at 13:57; Stop 12/25/16 at 22:23; Status DC Patient Own Medication PT OWN MED: (Mometasone-Formotero... BID INH ; Start at 09:00; Status Future Hold A/P Assessment and Plan A/P - right upper extremity weakness- possible complicated migraine. continue aspirin, plavix- consulted OT- MRI, MRV brain, MRI cervical spine with no acute abnormality. eeg unremarkable- echo and holter pending. started on Verapamil- continue Topamax. neurology evaluation appreciated. of note the patient was admitted to this hospital a few months ago with TIA and had a full work-up at the time. -hypertension/ dyslipidemia; resumed home meds -COPD; continue home inhalers -DVT prophylaxis with Lovenox Discharge Planning dc home if echo normal. f/u; pcp and neurology. d/w the patient and Jennifer Ballesteros MD Dec 27, 2016 13:43
--- NOTE | 2016-12-27 13:44 | HHI.DS ---
Discharge Summary Admission Date Dec 25, 2016 at 13:56 Discharge Date: Dec 27, 2016 Admitting Diagnosis TIA (1) TIA (transient ischemic attack) ICD Code: G45.9 - Transient cerebral ischemic attack, unspecified Diagnosis: Principal Status: Acute Procedures none Brief History - From Admission patient is a 36 y/o female with history of TIA,hypertension,dyslipidemia,COPD, cardiomyopathy presented to ER with right upper extremity weakness. she says that she started to have some tingling and weakness of the right arm two days ago. she denies any vision changes, slurred speech or focal weakness of the lower extremities. she was admitted to this hospital few months ago with TIA and after a full work-up , she was told to have a f/u with neurologist. she says that she has an appointment with neurologist this month. CBC/BMP: 12/25/16 1215 12/25/16 1215 Significant Findings Laboratory Tests Test 12/25/16 12:15 12/25/16 13:15 12/25/16 15:00 12/26/16 10:57 Chloride Level 110 MEQ/L (98-107) Carbon Dioxide Level 20.8 MEQ/L (21.0-32.0) Estimat Glomerular Filtration Rate 77 ML/MIN (>89) Total Creatine Kinase 321 U/L (26-192) 194 U/L (26-192) Troponin I LESS THAN 0.02 NG/ML Activated Partial Thromboplast Time 30.4 SEC (24.3-30.1) Urine Bacteria FEW /hpf (NONE) Urine Mucus FEW /lpf (OCC) Erythrocyte Sedimentation Rate 28 mm/hr (0-20) Imaging Last Impressions Cervical Spine MRI 12/25/162055 Signed Impressions: Service Date/Time: Sunday, December 25, 2016 22:16 - CONCLUSION: Slight bulging of the disc annulus at C3/C4. Otherwise essentially normal MRI of the cervical spine. No foraminal or spinal stenosis. Ivan Beltran MD Brain MRI 12/25/162055 Signed Impressions: Service Date/Time: Sunday, December 25, 2016 22:16 - CONCLUSION: Negative exam. Sundeep Valenzuela MD Head CT 12/25/16 1151 Signed Impressions: Service Date/Time: Sunday, December 25, 2016 12:56 - CONCLUSION: 1. No acute intracranial abnormality or significant interval change. Yohan Jones MD Head/Brain Mag Res Venography 12/25/16 0000 Signed Impressions: Service Date/Time: Sunday, December 25, 2016 22:16 - CONCLUSION: Negative exam. Dural sinuses are all patent. Sundeep Valenzuela MD PE at Discharge GENERAL: This is a well-nourished, well-developed patient, in no apparent distress. CARDIOVASCULAR: Regular rate and regular rhythm without murmurs, gallops, or rubs. RESPIRATORY: Clear to auscultation. Breath sounds equal bilaterally. No wheezes , rales, or rhonchi. GASTROINTESTINAL: Abdomen soft, non-tender, nondistended. Normal, active bowel sounds MUSCULOSKELETAL: Extremities without clubbing, cyanosis, or edema. NEURO: Alert & Oriented x4 to person, place, time, situation. mild weakness of the right upper extremity. Hospital Course - right upper extremity weakness- possible complicated migraine. continue aspirin, plavix- consulted OT- MRI, MRV brain, MRI cervical spine with no acute abnormality. eeg unremarkable- echo and holter pending. started on Verapamil- continue Topamax. neurology evaluation appreciated. of note the patient was admitted to this hospital a few months ago with TIA and had a full work-up at the time. -hypertension/ dyslipidemia; resumed home meds -COPD; continue home inhalers -DVT prophylaxis with Lovenox Pt Condition on Discharge: Good Discharge Disposition: Discharge Home Discharge Time: <= 30 minutes Discharge Instructions DIET: Follow Instructions for: Heart Healthy Diet Activities you can perform: Regular-No Restrictions Follow up Referrals: Neurology PCP Follow-up New Medications: Verapamil ER (Verapamil ER) 120 Mg Tab 120 MG PO DAILY for hypertension for 30 Days, #30 TAB 0 Refills Continued Medications: Albuterol 8.5 GM Inh (Proair Hfa 8.5 GM Inh) 90 Mcg/Act Aer 2 PUFF INH Q4-6H PRN for SHORTNESS OF BREATH, #1 INHALER 0 Refills 108 mcg/actuation Aripiprazole (Abilify) 2 Mg Tab 2 MG PO DAILY, #30 TAB [address] (Aspirin DR) 81 Mg Tabdr 81 MG PO DAILY, TAB 0 Refills Atorvastatin (Atorvastatin) 80 Mg Tab 80 MG PO HS for Cholesterol Management, #30 TAB 0 Refills Baclofen (Baclofen) 10 Mg Tab 10 MG PO BID for MUSCLE SPASM, TAB 0 Refills Vxuslernoe-Omrkhykyfypiw-Pdsayyyu (Fioricet) 50-300-40 Mg Cap 1-2 CAP PO Q6H PRN for HEADACHE, CAP 0 Refills Clopidogrel (Plavix) 75 Mg Tab 75 MG PO DAILY for Blood Clot Prevention, #30 TAB 0 Refills Dicyclomine (Bentyl) 10 Mg Cap 10 MG PO BID PRN for Bowel Management, CAP 0 Refills Diphenoxylate-Atropine (Lomotil) 2.5-0.025 Mg Tab 2 TAB PO TID PRN for DIARRHEA, TAB 0 Refills Escitalopram (Lexapro) 20 Mg Tab 20 MG PO DAILY, #30 TAB 0 Refills Ezetimibe (Zetia) 10 Mg Tab 10 MG PO DAILY, #30 TAB 0 Refills Fluticasone Nasal [place] (Flonase Nasal [place]) 50 Mcg/Act [place] 1 SPRAY EACH NARE BID for Allergies, BOTTLE 0 Refills Loperamide HCl (Loperamide) 2 Mg Tablet 2 MG PO TID PRN for DIARRHEA Loratadine (Claritin) 10 Mg Cap 10 MG PO DAILY for Allergy Management, CAP 0 Refills Mometasone-Formoterol 120 Act Inh (Dulera 120 Act Inh) 100-5 Mcg/Act Inh 2 PUFF INH BID for Asthma Management, #1 INHALER 0 Refills Omeprazole (Omeprazole) 20 Mg Tab 20 MG PO DAILY for Reflux, #30 TAB 0 Refills Ondansetron Odt (Zofran Odt) 4 Mg Tab 4 MG SL Q12HR, TAB 0 Refills Sucralfate (Carafate) 1 Gm Tab 1 GM PO DAILY for Ulcer Prevention, #120 TAB 0 Refills On empty stomach Topiramate (Topiramate) 25 Mg Tab 25 MG PO BID for Control Seizures, TAB 0 Refills Trazodone (Trazodone) 50 Mg Tab 200 MG PO HS for Insomnia, #30 TAB 0 Refills Discontinued Medications: Amlodipine (Norvasc) 5 Mg Tab 5 MG PO DAILY for Blood Pressure Management, #30 TAB 0 Refills Jennifer Harkins MD Dec 27, 2016 13:44
[2016-12-27] MEDS ORDERED: VERA1TAB9 PO (13:45)
[2016-12-27 14:29] LABS: ANA SCREEN NEG (NEG)
[2016-12-27] MEDS ORDERED: ACETAMINOPHEN 325 MG TAB PO PRN (16:15)
[2016-12-27] MEDS: traZODone HCL 50 MG TAB PO SCH (21:53)
[2016-12-27] MEDS: ATORVASTATIN 80 MG TAB PO SCH (21:54)
[2016-12-28] VITALS (7 sets, daily range): BP systolic 107–124; BP diastolic 59–68; PULSE 54–79; RESP 18–20; TEMP 97.6–98.5; O2SAT 96–97
[2016-12-28] MEDS: ENOXAPARIN SODIUM 40 MG/0.4 ML SYRINGE SQ SCH (09:00)
[2016-12-28] MEDS: ESCITALOPRAM OXALATE 20 MG TAB PO SCH (11:31)
[2016-12-28] MEDS: SUCRALFATE 1 GM TAB PO SCH (11:31)
[2016-12-28] MEDS: ASPIRIN EC 81 MG TABEC PO SCH (11:31)
[2016-12-28] MEDS: VERAPAMIL HCL 120 MG SUSTAINED RELEASE TAB PO SCH (11:31)
[2016-12-28] MEDS: SODIUM CHLORIDE 0.9% FLUSH 10 ML FLUSH IVF PRN (11:31)
[2016-12-28] MEDS: EZETIMIBE 10 MG TAB PO SCH (11:32)
[2016-12-28] MEDS: PANTOPRAZOLE SOD 20 MG DELAYED RELEASE TAB PO SCH (11:32)
[2016-12-28] MEDS: CLOPIDOGREL 75 MG TAB PO SCH (11:32)
[2016-12-28] MEDS: TOPIRAMATE 25 MG TAB PO SCH (11:32)
[2016-12-28] MEDS: ARIPiprazole 2 MG TAB PO SCH (11:32)
[2016-12-28] MEDS: LORATADINE 10 MG TAB PO SCH (11:32)
--- NOTE | 2016-12-28 13:58 | HHI.PR ---
Subjective Remarks resting comfortably with no distress. no weakness or numbness of the right upper extremity. no new complaints. Objective Vitals Vital Signs Date Time Temp Pulse Resp B/P (MAP) Pulse Ox O2 Delivery O2 Flow Rate FiO2 12/28/16 12:39 97.6 69 20 111/59 (76) 97 12/28/16 08:01 98.2 58 18 107/59 (75) 97 12/28/16 07:04 54 12/28/16 04:10 98.5 63 19 124/61 (82) 97 12/27/16 23:41 98.2 72 17 133/65 (87) 97 12/27/16 23:00 63 12/27/16 21:03 98.0 71 19 101/56 (71) 97 12/27/16 17:53 98.0 64 18 108/57 (74) 93 12/27/16 17:19 76 I/O 12/27/16 12/27/16 12/27/16 12/28/16 12/28/16 12/28/16 07:00 15:00 23:00 07:00 15:00 23:00 Intake Total 480 ml Output Total 4 ml Balance 480 ml -4 ml Intake Oral 480 ml Output Urine Total 4 ml # Voids 1 Result Diagram: 12/25/16 1215 12/25/16 1215 Imaging Last Impressions Cervical Spine MRI 12/25/162055 Signed Impressions: Service Date/Time: Sunday, December 25, 2016 22:16 - CONCLUSION: Slight bulging of the disc annulus at C3/C4. Otherwise essentially normal MRI of the cervical spine. No foraminal or spinal stenosis. Ivan Beltran MD Brain MRI 12/25/162055 Signed Impressions: Service Date/Time: Sunday, December 25, 2016 22:16 - CONCLUSION: Negative exam. Sundeep Valenzuela MD Head CT 12/25/16 1151 Signed Impressions: Service Date/Time: Sunday, December 25, 2016 12:56 - CONCLUSION: 1. No acute intracranial abnormality or significant interval change. Yohan Jones MD Head/Brain Mag Res Venography 12/25/16 0000 Signed Impressions: Service Date/Time: Sunday, December 25, 2016 22:16 - CONCLUSION: Negative exam. Dural sinuses are all patent. Sundeep Valenzuela MD Objective Remarks GENERAL: This is a well-nourished, well-developed patient, in no apparent distress. CARDIOVASCULAR: Regular rate and regular rhythm without murmurs, gallops, or rubs. RESPIRATORY: Clear to auscultation. Breath sounds equal bilaterally. No wheezes , rales, or rhonchi. GASTROINTESTINAL: Abdomen soft, non-tender, nondistended. Normal, active bowel sounds MUSCULOSKELETAL: Extremities without clubbing, cyanosis, or edema. NEURO: Alert & Oriented x4 to person, place, time, situation. mild weakness of the right upper extremity. Procedures none Medications and IVs Current Medications Sodium Chloride (NS Flush) 2 ml UNSCH PRN IVF FLUSH AFTER USING IV ACCESS Last administered on 12/28/16 11:31; Start 12/25/16 at 12:00 Sodium Chloride 1,000 ml @ 999 mls/hr BOLUS ONCE IV Last administered on 12/25 12:58; Start 12/25/16 at 12:00; Stop 12/25/16 at 13:00; Status DC Prochlorperazine Edisylate (Compazine Inj) 10 mg ONCE ONCE IV PUSH Last administered on 12/25/16 12:58; Start 12/25/16 at 12:00; Stop 12/25/16 at 12:01 ; Status DC Diphenhydramine HCl (Benadryl Inj) 25 mg ONCE ONCE IV PUSH Last administered on 12/25/16 12:58; Start 12/25/16 at 12:00; Stop 12/25/16 at 12:01; Status DC Aspirin (Aspirin Chew) 162 mg ONCE ONCE CHEW Last administered on 12/25/16 15 :00; Start 12/25/16 at 13:45; Stop 12/25/16 at 13:51; Status DC Albuterol Sulfate (Proair Hfa Inh) 2 puff Q6HR PRN INH SHORTNESS OF BREATH; Start 12/25/16 at 15:00 Amlodipine Besylate (Norvasc) 5 mg DAILY PO ; Start 12/26/16 at 09:00; Stop at 09:00; Status DC Aripiprazole (Abilify) 2 mg DAILY PO Last administered on 12/28/16 11:32; Start 12/26/16 at 09:00 Aspirin (Ecotrin Ec) 81 mg DAILY PO Last administered on 12/28/16 11:31; Start 12/26/16 at 09:00 Atorvastatin Calcium (Lipitor) 80 mg HS PO Last administered on 12/27/16 21:54 ; Start 12/25/16 at 21:00 Clopidogrel Bisulfate (Plavix) 75 mg DAILY PO Last administered on 12/28/16 11 :32; Start 12/26/16 at 09:00 Escitalopram Oxalate (Lexapro) 20 mg DAILY PO Last administered on 12/28/16 11 :31; Start 12/26/16 at 09:00 EZETIMIBE (Zetia) 10 mg DAILY PO Last administered on 12/28/16 11:32; Start at 09:00 Loratadine (Claritin) 10 mg DAILY PO Last administered on 12/28/16 11:32; Start 12/26/16 at 09:00 Sucralfate (Carafate) 1 gm DAILY PO Last administered on 12/28/16 11:31; Start 12/26/16 at 09:00 Topiramate (Topamax) 25 mg BID PO Last administered on 12/28/16 11:32; Start 12/25/16 at 21:00 Trazodone HCl (Desyrel) 200 mg HS PO Last administered on 12/27/16 21:53; Start 12/25/16 at 21:00 Non-Formulary Medication 2 puff BID INH ; Start 12/25/16 at 21:00; Stop at 23:23; Status DC Pantoprazole Sodium (Protonix) 20 mg DAILY PO Last administered on 12/28/16 11 :32; Start 12/26/16 at 09:00 Sodium Chloride 1,000 ml @ 84 mls/hr [id number] ONCE IV Last administered on 12/25 16:22; Start 12/25/16 at 15:00; Stop 12/26/16 at 02:54; Status DC Enoxaparin Sodium (Lovenox Inj) 40 mg Q24H SQ ; Start 12/26/16 at 09:00 Verapamil HCl (Isoptin Sr) 120 mg DAILY PO Last administered on 12/28/16 11: 31; Start 12/26/16 at 09:00 Gadodiamide (Omniscan Pf Inj) 20 ml STK-MED ONCE IVCONTRAST Last administered on 12/25/16 13:57; Start 12/25/16 at 13:57; Stop 12/25/16 at 22:23; Status DC Patient Own Medication PT OWN MED: (Mometasone-Formotero... BID INH ; Start at 09:00; Status Future Hold Acetaminophen (Tylenol) 650 mg Q4H PRN PO HEADACHE Last administered on 16:42; Start 12/27/16 at 16:15 A/P Assessment and Plan A/P - right upper extremity weakness- possible complicated migraine. continue aspirin, plavix- consulted OT- MRI, MRV brain, MRI cervical spine with no acute abnormality. eeg unremarkable- echo and holter pending. started on Verapamil- continue Topamax. neurology evaluation appreciated. of note the patient was admitted to this hospital a few months ago with TIA and had a full work-up at the time. -hypertension/ dyslipidemia; resumed home meds -COPD; continue home inhalers -DVT prophylaxis with Lovenox Discharge Planning dc home if echo normal. f/u; pcp and neurology. d/w the patient and HUSSAIN. Jennifer Harkins MD Dec 28, 2016 13:58
--- NOTE | 2016-12-28 14:00 | HM ---
Date Performed: 12/26/2016 Time Performed: 13:57:00 HOOKUP DATE: 12/26/16 01:57:00 PM Sun ANALYSIS START TIME: 12/26/2016 2:02:00 PM ANALYSIS END TIME: 12/27/2016 2:05:59 PM PATIENT AGE: 36 PATIENT HEIGHT PATIENT WEIGHT DRUG LIST PATIENT DIAGNOSIS: TIA TEST NARRATIVE: The patient's average heart rate was 74 BPM. Heart rates greater than 120 B PM were noted 1% of the time. Heart rates less than 50 BPM were noted < 1% of the time. No pause s exceeding 2.0 seconds were noted. 2 ventricular ectopics, which represented < 1% of the total b eat count, were noted. The highest ventricular ectopic frequency occurred from 10:00 AM to 11:00 AM Mon. During this time 1 VE(s) occurred. Ventricular ectopics were observed as 2 isolated beat(s) on ly. No couplets or runs were noted. 3 supraventricular ectopics, which represented < 1% of the t otal beat count, were noted. The highest supraventricular ectopic frequency occurred from 01:00 AM t o 02:00 AM Mon. During this time 1 SVE(s) occurred. No episodes of ST depression (defined as -1. 0 mm or more) were noted in channel 1. No episodes of ST depression (defined as -1.0 mm or more) wer e noted in channel 2. No episodes of ST depression (defined as -1.0 mm or more) were noted in channe l 3. TEST INTERPRETATION: Patient was monitored for 24 hours and 4 minutes. Patient was in normal Sin us rhythm . Patient was in sinus bradycardia with a low of 46 bpm at 01:20 am , and appears to be supraventricu lar tachycardia of 132 bpm at 11:25 am. 2 PVCs and 3 PACs. There is baseline artifact, and it is inde terminate if this is sinus tachycardia or supraventricular tachycardia of alternative origin. Tachyca rdia to 120 bpm at 6:00 am with significant baseline artifact, limiting accuracy of interpretationn a nd indeterminate origin of the rhythm. Signed by : Kev Cortes
--- NOTE | 2016-12-28 16:09 | ECHRPT ---
Indication: CVA/TIA CONCLUSIONS Normal left ventricular size. Mild concentric left ventricular hypertrophy. The left ventricular systolic function is low normal with an estimated ejection fraction in the rang e of 50- 55%. The left atrial size is mildly dilated. The right atrial size is mildly dilated. The interatrial septum not well visualized. The interatrial septum not well visualized. Trace mitral valve regurgitation. No aortic valve regurgitation. No aortic valve stenosis. No tricuspid regurgitation. Normal estimated pulmonary pressures. BP: 114 / 66 HR: 70 Rhythm: Sinus MEASUREMENTS (Male / Female) Normal Values Technical Quality:Very technically difficult study 2D ECHO LV Diastolic Diameter PLAX 3.0 cm 4.2 - 5.9 / 3.9 - 5.3 cm LV Systolic Diameter PLAX 2.4 cm IVS Diastolic Thickness 1.1 cm 0.6 - 1.0 / 0.6 - 0.9 cm LVPW Diastolic Thickness 1.1 cm 0.6 - 1.0 / 0.6 - 0.9 cm LV Relative Wall Thickness 0.7 LVOT Diameter 2.1 cm Aortic Root Diameter 2.9 cm LA Systolic Diameter LX 3.5 cm 3.0 - 4.0 / 2.7 - 3.8 cm M-MODE AV Cusp Separation MM 2.0 cm DOPPLER AV Peak Velocity 125.0 cm/s AV Peak Gradient 6.3 mmHg AV Mean Gradient 4.0 mmHg AV Velocity Time Integral 23.4 cm LVOT Peak Velocity 81.2 cm/s LVOT Peak Gradient 2.6 mmHg LVOT Velocity Time Integral 16.6 cm LVOT Cardiac Index 1724.8 cm/minm AV Area Cont Eq vti 2.5 cm AV Area Cont Eq pk 2.2 cm Mitral E Point Velocity 82.4 cm/s Mitral A Point Velocity 64.2 cm/s Mitral E to A Ratio 1.3 LV E' Lateral Velocity 12.1 cm/s Mitral E to LV E' Lateral Ratio 6.8 LV E' Septal Velocity 7.7 cm/s Mitral E to LV E' Septal Ratio 10.7 PV Peak Velocity 72.2 cm/s PV Peak Gradient 2.1 mmHg FINDINGS LEFT VENTRICLE Normal left ventricular size. Mild concentric left ventricular hypertrophy. The left ventricular systolic function is low normal with an estimated ejection fraction in the rang e of 50- 55%. Left ventricular diastolic function parameters are normal. RIGHT VENTRICLE Normal right ventricular size and systolic function. LEFT ATRIUM The left atrial size is mildly dilated. RIGHT ATRIUM The right atrial size is mildly dilated. ATRIAL SEPTUM The interatrial septum not well visualized. The interatrial septum not well visualized. AORTA The aortic root and proximal ascending aorta are normal in size on limited imaging. MITRAL VALVE Structurally normal mitral valve. Trace mitral valve regurgitation. AORTIC VALVE No aortic valve regurgitation. No aortic valve stenosis. TRICUSPID VALVE No tricuspid regurgitation. Normal estimated pulmonary pressures. PULMONARY VALVE No pulmonary valve regurgitation or stenosis. VESSELS The inferior vena cava is normal in size. Phong De Los Santos MD (Electronically Signed) Final Date:28 December 2016 16:08
[2016-12-30 07:51] LABS: THROMBIN TIME FOR LA ND sec (13-19)
== END 2016-12-28 18:00 | disposition home or self-care (01) ==
LOC: NEPC 10:39 → NEDA 13:56 → NEPGCP 15:33 → NEPFCDU 12-26 16:13
PROVIDERS: ADMIT Internal Medicine; ATTEND Internal Medicine
DX: G45.9 Transient cerebral ischemic attack, unspecified (principal); G43.109 Migraine with aura, not intractable, without status migrainosus; D64.9 Anemia, unspecified; I42.9 Cardiomyopathy, unspecified; J44.9 Chronic obstructive pulmonary disease, unspecified; M79.7 Fibromyalgia; K21.9 Gastro-esophageal reflux disease without esophagitis; I10 Essential (primary) hypertension; E78.5 Hyperlipidemia, unspecified; R82.99 Other abnormal findings in urine; E78.00 Pure hypercholesterolemia, unspecified; E61.1 Iron deficiency; Z87.11 Personal history of peptic ulcer disease; Z79.02 Long term (current) use of antithrombotics/antiplatelets
CPT/HCPCS: 70450; 70545; 70553; 72141; 80053; 80307; 81001; 81240; 81241; 82550; 82552; 82607; 82746; 83921; 84425; 84443; 84484; 85025; 85240; 85300; 85303; 85306; 85610; 85613; 85652; 85730; 86038; 86147; 86592; 87086; 93005; 93225; 93226; 93306; 95819; 96361; 96374; 97165; 99285; A9579; G0378; G8987; G8988; G8989; J0780; J1200; J7030

== ENCOUNTER → 2017-06-07 | Outpatient (CLI) | payer MEDICAID ==
[~2017-06-07] MED LIST changes: -ABIL2TAB2 PO; -ALBU1AER5 INH; -AMLO5 PO; +ARIP2 PO; -ASPI81TA5 PO; -ATOR1TAB18 PO; +ATOR80TA45 PO; -BUTATAB6 PO; +DULE100A INH; +ECASA81 PO; +EZET10 PO; -HYDR-3533 PO; -IBUP400T20 PO; +OMEP20TA93 PO; -OMEP40CA2 PO; -TOPI1TAB97 PO; +TOPI25TA7 PO; +VERA1TAB9 PO; -ZETI10TA5 PO
--- NOTE | 2017-06-07 14:47 | MG ---
cc: Amalia Friedman MD EEG#: [id number] REFERRING PHYSICIAN: ____ Outpatient. With photic stimulation, sleep deprived. The patient went to bed at 8:00 last night and woke up at 12:00 a.m., did not go back to sleep. Last meal last night at 7:30, caffeine this morning. No pain. Patient stated she started having seizures after her last stroke, which was in December of last year. When it occurs it is for at least 3 times a day, whole body shaking, lasting for possibly seconds to minutes. History of hypertension, DVT, upper urinary tract infection, migraines, stroke history, irregular heartbeat, cardiomyopathy. On Eliquis, Fioricet, oxcarbazepine, topiramate, baclofen, Zetia, Lomotil, and atorvastatin. DESCRIPTION OF RECORD: She is noted to be asleep during the initial part. There is overall theta slowing, 4-5 Hz. There is a lot of sweat sway noted by the technicians as well. EKG looks sinus. Photic stimulation, a mild driving response. Overall, even when she is awake, there seems to be some mild slowing of the background, predominantly of 5 Hz. No epileptiform features were observed in this recording. IMPRESSION: Some mild slowing noted without any gross epileptiform features, may be due to patient's sleep state versus mild encephalopathy versus even medicine effect. No epileptiform features, however. Clinical correlation. Amalia Friedman MD DF/TI/ , 01:26 PM , 02:15 PM
== END ==
LOC: HEEG 05:20
DX: G40.909 Epilepsy, unspecified, not intractable, without status epilepticus (principal)
CPT/HCPCS: 95819

== ENCOUNTER 2017-07-15 13:30 | Observation (INO) | payer MEDICAID ==
[2017-07-15] VITALS (9 sets, daily range): BP systolic 112–138; BP diastolic 63–106; PULSE 81–101; RESP 17–20; TEMP 97.6–99; O2SAT 96–100
[~2017-07-15] VITALS: Ht 152.4 cm; Wt 134.1 kg
[2017-07-15] MEDS ORDERED: SODIUM CHLORIDE 0.9% FLUSH 10 ML FLUSH IVF PRN (14:00)
--- NOTE | 2017-07-15 14:04 | PD ---
HPI Chief Complaint: Neuro Symptoms/ Deficits Time Seen by Provider: 13:58 Travel History International Travel<30 days: No Contact w/Intl Traveler<30days: No Traveled to known affect area: No History of Present Illness HPI 37-year-old female patient with history of previous TIAs, hypertension, presents to the ER today because she states that she woke up at 8 AM today with right arm and leg weakness, thinks that she may have had a TIA again. She also complains of a headache. She has some difficulty walking because of the right- sided weakness. She went to bed at 10 PM last night when she was feeling normal at that time. She denies any chest pains, trouble breathing, or any other symptoms. Modifying Factors: None Associated Signs & Symptoms: Right arm and leg weakness Risk Factors: TIAs PFSH Past Medical History Hx Anticoagulant Therapy: Yes (ELIQUIS) Anemia: Yes (IRON-DEFICIENCY) Asthma: Yes (EXERCISE INDUCED) Blood Disorders: No Bipolar Disorder: Yes Anxiety: Yes Depression: Yes Heart Rhythm Problems: Yes (IRREGULAR HEART BEAT) Cancer: No Cardiac Catheterization: No Cardiomyopathy: Yes Cardiovascular Problems: Yes (CARDIOMYOPATHY, A-FIB) High Cholesterol: Yes Chest Pain: Yes Congestive Heart Failure: No Cerebrovascular Accident: Yes (TIA X 2) Diabetes: No Diminished Hearing: No Endocrine: No Fibromyalgia: Yes GERD: Yes Genitourinary: Yes (UTI) Heparin Induced Thrombocytopen: No Hypertension: Yes Immune Disorder: No Musculoskeletal: Yes (CHRONIC BACK PAIN) Neurologic: No Reproductive: No Respiratory: Yes (ASTHMA, COPD) Immunizations Current: Yes Migraines: Yes Myocardial Infarction: No Sleep Apnea: Yes Ulcer: Yes ?: Not : 3 Para: 3 Miscarriage: 0 : 0 Past Surgical History Abdominal Surgery: Yes ("BEADS" PLACED IN ABD TO REDUCE BLEEDING ) Body Medical Devices: HYPER LIPID Section: Yes Coronary Artery Bypass Graft: No Hysterectomy: Yes (FULL HYSTERECTOMY) Other Surgery: Yes (LEFT GREAT TOE) Social History Alcohol Use: No Tobacco Use: No Substance Use: No Allergies-Medications (Allergen,Severity, Reaction): Coded Allergies: bee venom protein (honey bee) (Verified Allergy, Severe, Swelling, 07/15/17) citric acid (Verified Allergy, Intermediate, itching, 07/15/17) grass pollen (Verified Allergy, Mild, SNEEZING, 07/15/17) Uncoded Allergies: DENTURE ADHESIVES (Adverse Reaction, Severe, Ulcers, 12/09/16) Reported Meds & Prescriptions Reported Meds & Active Scripts Active Verapamil ER (Verapamil HCl) 120 Mg Tab 120 Mg PO DAILY 30 Days Reported Dulera 120 Act Inh (Mometasone-Formoterol 120 Act Inh) 100-5 Mcg/Act Inh 2 Puff INH BID Omeprazole 20 Mg Tab 20 Mg PO DAILY Fioricet (Ceostmxrsi-Eyaikffzfgvms-Svfelzwi) 50-300-40 Mg Cap 1-2 Cap PO Q6H PRN Lomotil (Diphenoxylate-Atropine) 2.5-0.025 Mg Tab 2 Tab PO TID PRN Plavix (Clopidogrel Bisulfate) 75 Mg Tab 75 Mg PO DAILY Zofran Odt (Ondansetron Odt) 4 Mg Tab 4 Mg SL Q12HR Flonase Nasal [place] (Fluticasone Nasal [place]) 50 Mcg/Act [place] 1 [place] EACH NARE BID Claritin (Loratadine) 10 Mg Cap 10 Mg PO DAILY Topiramate 25 Mg Tab 25 Mg PO BID Proair Hfa 8.5 GM Inh (Albuterol Sulfate) 90 Mcg/Act Aer 2 Puff INH Q4-6H PRN 108 mcg/actuation Atorvastatin (Atorvastatin Calcium) 80 Mg Tab 80 Mg PO HS Loperamide (Loperamide HCl) 2 Mg Tablet 2 Mg PO TID PRN Trazodone (Trazodone HCl) 50 Mg Tab 200 Mg PO HS Baclofen 10 Mg Tab 10 Mg PO BID Carafate (Sucralfate) 1 Gm Tab 1 Gm PO DAILY On empty stomach Bentyl (Dicyclomine HCl) 10 Mg Cap 10 Mg PO BID PRN Aspirin DR (Aspirin) 81 Mg Tabdr 81 Mg PO DAILY Lexapro (Escitalopram Oxalate) 20 Mg Tab 20 Mg PO DAILY Zetia (Ezetimibe) 10 Mg Tab 10 Mg PO DAILY Abilify (Aripiprazole) 2 Mg Tab 2 Mg PO DAILY Review of Systems Except as stated in HPI: all other systems reviewed are Neg Physical Exam Narrative GENERAL: Well-developed middle-age female patient currently in mild distress. Awake and oriented 3. SKIN: Focused skin assessment warm/dry. HEAD: Atraumatic. Normocephalic. EYES: Pupils equal and round. No scleral icterus. No injection or drainage. ENT: No nasal bleeding or discharge. Mucous membranes pink and moist. NECK: Trachea midline. No JVD. Supple. CARDIOVASCULAR: Regular rate and rhythm. No murmur appreciated. Pulses present and equal bilaterally. RESPIRATORY: No accessory muscle use. Clear to auscultation. Breath sounds equal bilaterally. GASTROINTESTINAL: Abdomen soft, non-tender, nondistended. Hepatic and splenic margins not palpable. MUSCULOSKELETAL: No obvious deformities. No clubbing. No cyanosis. No edema. NEUROLOGICAL: Awake and alert. No obvious cranial nerve deficits. Motor grossly within normal limits. Normal speech. PSYCHIATRIC: Appropriate mood and affect; insight and judgment normal. Data Data Last Documented VS Vital Signs Date Time Temp Pulse Resp B/P (MAP) Pulse Ox O2 Delivery O2 Flow Rate FiO2 07/15/17 14:08 84 17 137/75 (95) 100 Room Air 07/15/17 13:36 97.6 Orders Orders Electrocardiogram (07/15/17 13:58) Prothrombin Time / Inr (Pt) (07/15/17 13:58) Act Partial Throm Time (Ptt) (07/15/17 13:58) Complete Blood Count With Diff (07/15/17 13:58) Comprehensive Metabolic Panel (07/15/17 13:58) Ct Brain W/O Iv Contrast(Rout) (07/15/17 13:58) Chest, Single Ap (07/15/17 13:58) Ecg Monitoring (07/15/17 13:58) Iv Access Insert/Monitor (07/15/17 13:58) Oximetry (07/15/17 13:58) Sodium Chloride 0.9% Flush (Ns Flush) (07/15/17 14:00) Aspirin (Aspirin) (07/15/17 15:00) Aripiprazole (Abilify) (07/16/17 09:00) Aspirin Ec (Ecotrin Ec) (07/16/17 09:00) Atorvastatin (Lipitor) (07/15/17 21:00) Baclofen (Lioresal) (07/15/17 21:00) Clopidogrel (Plavix) (07/16/17 09:00) Dicyclomine (Bentyl) (07/15/17 16:15) Escitalopram (Lexapro) (07/16/17 09:00) Ezetimibe (Zetia) (07/16/17 09:00) Loratadine (Claritin) (07/16/17 09:00) Sucralfate (Carafate) (07/16/17 09:00) Trazodone (Desyrel) (07/15/17 21:00) Verapamil Sr (Isoptin Sr) (07/16/17 09:00) (Nf) Fluticasone Nasal [place] (Flonase Na (07/15/17 21:00) (Nf) Mometasone-Formoterol 120 Act Inh ( (07/15/17 21:00) (Nf) Omeprazole (07/16/17 09:00) Place In Observation (07/15/17 ) Code Status (07/15/17 16:09) Vital Signs (Adult) Q4H (07/15/17 16:09) Activity Oob Ad Nathalie (07/15/17 16:09) Bedside Glucose VANDANA.CSUGAR (07/15/17 16:09) Pile Driver Operator / Telemetry .CONTINUOUS (07/15/17 16:09) Intake + Output VANDANA.QSHIFT (07/15/17 16:09) Notify Dr: Other (07/15/17 16:09) Diet Heart Healthy (07/15/17 Dinner) Sodium Chlor 0.9% 1000 Ml Inj (Ns 1000 M (07/15/17 16:09) Sodium Chloride 0.9% Flush (Ns Flush) (07/15/17 16:15) Sodium Chloride 0.9% Flush (Ns Flush) (07/15/17 21:00) Acetaminophen (Tylenol) (07/15/17 16:15) Ondansetron Inj (Zofran Inj) (07/15/17 16:15) Basic Metabolic Panel (Bmp) (07/16/17 06:00) Complete Blood Count With Diff (07/16/17 06:00) Creatine Kinase (Cpk) (07/15/17 16:09) Creatine Kinase (Cpk) (07/15/17 22:09) Troponin I (07/15/17 16:09) Troponin I (07/15/17 22:09) Prothrombin Time / Inr (Pt) (07/16/17 06:00) Urinalysis - C+S If Indicated (07/15/17 16:09) Resp Oxygen Cosme C Titrat 1-4 L (07/15/17 ) Pt Request For Service (07/15/17 16:09) Ot Request For Service (07/15/17 16:09) Speech Therapy Consult-Eval/Tx (07/15/17 16:09) Case Management Consult (07/15/17 16:09) Enoxaparin Inj (Lovenox Inj) (07/15/17 16:15) Naloxone Inj (Narcan Inj) (07/15/17 16:15) Sennosides (Senokot) (07/15/17 16:15) Bisacodyl Supp (Dulcolax Supp) (07/15/17 16:15) Lactulose Liq (Lactulose Liq) (07/15/17 16:15) Consult Neurology (07/15/17 ) Admit Order (Ed Use Only) (07/15/17 16:13) Labs Laboratory Tests Test 07/15/17 14:10 White Blood Count 10.4 TH/MM3 Red Blood Count 5.10 MIL/MM3 Hemoglobin 14.2 GM/DL Hematocrit 43.1 % Mean Corpuscular Volume 84.4 FL Mean Corpuscular Hemoglobin 27.8 PG Mean Corpuscular Hemoglobin Concent 33.0 % Red Cell Distribution Width 14.2 % Platelet Count 323 TH/MM3 Mean Platelet Volume 9.3 FL Neutrophils (%) (Auto) 71.6 % Lymphocytes (%) (Auto) 19.2 % Monocytes (%) (Auto) 6.3 % Eosinophils (%) (Auto) 2.6 % Basophils (%) (Auto) 0.3 % Neutrophils # (Auto) 7.5 TH/MM3 Lymphocytes # (Auto) 2.0 TH/MM3 Monocytes # (Auto) 0.7 TH/MM3 Eosinophils # (Auto) 0.3 TH/MM3 Basophils # (Auto) 0.0 TH/MM3 CBC Comment DIFF FINAL Differential Comment Prothrombin Time 9.4 SEC Prothromb Time International Ratio 0.9 RATIO Activated Partial Thromboplast Time 28.4 SEC Blood Urea Nitrogen 14 MG/DL Creatinine 0.87 MG/DL Random Glucose 94 MG/DL Total Protein 8.7 GM/DL Albumin 3.9 GM/DL Calcium Level 9.7 MG/DL Alkaline Phosphatase 138 U/L Aspartate Amino Transf (AST/SGOT) 20 U/L Alanine Aminotransferase (ALT/SGPT) 27 U/L Total Bilirubin 0.7 MG/DL Sodium Level 139 MEQ/L Potassium Level 4.3 MEQ/L Chloride Level 105 MEQ/L Carbon Dioxide Level 28.0 MEQ/L Anion Gap 6 MEQ/L Estimat Glomerular Filtration Rate 73 ML/MIN MDM Medical Decision Making Medical Screen Exam Complete: Yes Emergency Medical Condition: Yes Medical Record Reviewed: Yes Interpretation(s) EKG shows NSR, no ST elevation or depression, and no arrhythmias. No significant T-wave inversions. Laboratory Tests Test 07/15/17 14:10 Neutrophils (%) (Auto) 71.6 % (16.0-70.0) Prothrombin Time 9.4 SEC (9.8-11.6) Total Protein 8.7 GM/DL (6.4-8.2) Alkaline Phosphatase 138 U/L (45-117) Estimat Glomerular Filtration Rate 73 ML/MIN (>89) Last [address] 07/15/17 [id number] Signed Impressions: Service Date/Time: Saturday, July 15, 2017 14:14 - CONCLUSION: 1. No acute intracranial abnormality. Yohan Jones MD Chest X-Ray 07/15/17 0359 Signed Impressions: Service Date/Time: Saturday, July 15, 2017 14:09 - CONCLUSION: The lungs are clear. Kj Light MD Differential Diagnosis CVA/TIA versus metabolic issues versus hypertensive urgency Narrative Course CT the brain is negative for any signs of acute intracranial issues. Aspirin was given in the ER. At this point, my plan would be to admit the patient for further evaluation. Lab work was otherwise unremarkable for significant metabolic issues. She is not very hypertensive. Case is discussed with Dr. Aguero for admission. Diagnosis Primary Impression: TIA (transient ischemic attack) Admitting Information Admitting Physician Requests: Admit Chet Syed MD Jul 15, 2017 14:04
--- NOTE | 2017-07-15 14:26 | RADRPT ---
EXAM DATE/TIME: 07/15/2017 14:14 [facility] COMPARISON: CT BRAIN W/O CONTRAST, December 25, 2016, 12:56. INDICATIONS : Right sided weakness, tingling, headache RADIATION DOSE: 56.35 CTDIvol (mGy) MEDICAL HISTORY : Cerebrovascular disease. Hypertension. SURGICAL HISTORY : Hysterectomy. ENCOUNTER: Initial ACUITY: 1 day PAIN SCALE: 2/10 LOCATION: cranial TECHNIQUE: Multiple contiguous axial images were obtained of the head. Using automated exposure control and adj ustment of the mA and/or kV according to patient size, radiation dose was kept as low as reasonably a chievable to obtain optimal diagnostic quality images. DICOM format image data is available electro nically for review and comparison. FINDINGS: CEREBRUM: The ventricles are normal for age. No evidence of midline shift, mass lesion, hemorrhage or acute in farction. No extra-axial fluid collections are seen. POSTERIOR FOSSA: The cerebellum and brainstem are intact. The 4th ventricle is midline. The cerebellopontine angle i s unremarkable. EXTRACRANIAL: The visualized portion of the orbits is intact. SKULL: The calvaria is intact. No evidence of skull fracture. CONCLUSION: 1. No acute intracranial abnormality. Yohan Jones MD on July 15, 2017 at 14:19 Board Certified Radiologist. This report was verified electronically.
--- NOTE | 2017-07-15 14:54 | RADRPT ---
EXAM DATE/TIME: 07/15/2017 14:09 [facility] COMPARISON: CHEST SINGLE AP, October 14, 2016, 12:56. INDICATIONS : CVA MEDICAL HISTORY : Hypertension, CVA SURGICAL HISTORY : None. ENCOUNTER: Initial ACUITY: 1 day PAIN SCORE: 0/10 LOCATION: Bilateral chest FINDINGS: A single view of the chest demonstrates the lungs to be symmetrically aerated without evidence of mas s, infiltrate or effusion. The cardiomediastinal contours are unremarkable. Osseous structures are intact. CONCLUSION: The lungs are clear. Kj Light MD on July 15, 2017 at 14:45 Board Certified Radiologist. This report was verified electronically.
[2017-07-15] MEDS ORDERED: ASPIRIN 325 MG TAB PO ONE (15:00)
[2017-07-15 15:08] LABS: AUTOMATED NEUTROPHIL # 7.5 TH/MM3 (1.8-7.7); BASOPHIL % 0.3 % (0.0-2.0); EOSINOPHIL # 0.3 TH/MM3 (0-0.4); EOSINOPHIL % 2.6 % (0.0-4.0); HEMATOCRIT 43.1 % (35.0-46.0); HEMOGLOBIN 14.2 GM/DL (11.6-15.3); LYMPH % 19.2 % (9.0-44.0); MEAN CELL VOLUME 84.4 FL (80.0-100.0); MEAN CORPUSCULAR HEMOGLOBIN 27.8 PG (27.0-34.0); MEAN PLATELET VOLUME 9.3 FL (7.0-11.0); MONO % 6.3 % (0.0-8.0); MONOCYTE # 0.7 TH/MM3 (0-0.9); NEUT % 71.6 % (16.0-70.0); PLATELET COUNT 323 TH/MM3 (150-450); RED CELL DISTRIBUTION WIDTH 14.2 % (11.6-17.2); WHITE BLOOD COUNT 10.4 TH/MM3 (4.0-11.0)
[2017-07-15 15:21] LABS: INTERNATIONAL NORMALIZED RATIO 0.9 RATIO; PROTHROMBIN TIME - PATIENT 9.4 SEC (9.8-11.6)
[2017-07-15 15:32] LABS: ALBUMIN 3.9 GM/DL (3.4-5.0); ALT (GPT) 27 U/L (10-53); AST (GOT) 20 U/L (15-37); BLOOD UREA NITROGEN 14 MG/DL (7-18); CALCIUM 9.7 MG/DL (8.5-10.1); CHLORIDE 105 MEQ/L (98-107); CREATININE 0.87 MG/DL (0.50-1.00); GLOMERULAR FILTRATION RATE 73 ML/MIN (>89); GLUCOSE,RANDOM 94 MG/DL (74-106); SODIUM (NA) 139 MEQ/L (136-145)
[2017-07-15 15:34] LABS: ALKALINE PHOSPHATASE 138 U/L (45-117); TOTAL BILIRUBIN ADULT 0.7 MG/DL (0.2-1.0); TOTAL PROTEIN 8.7 GM/DL (6.4-8.2)
--- NOTE | 2017-07-15 16:12 | HHI.HP ---
[facility] Non[facility]Staff Admission Diagnosis Diagnoses: Chief Complaint: TIA Travel History International Travel<30 Days: No Contact w/Intl Traveler <30 Da: No Traveled to Known Affected Are: No History of Present Illness This is a pleasant 37 y/o Female with previous TIA, hypertension, who came to Emergency department because she woke up at 8 AM today with right arm and leg weakness, thinks that she may have had a TIA again. She also complains of a headache. She has some difficulty walking because of the right-sided weakness. She went to bed at 10 PM last night when she was feeling normal at that time. She denies any chest pains, trouble breathing, or any other symptoms. the patient felt dizzy at this time and is vomiting in her bedroom she has Morbid Obesity, will follow neurology specialist recommendations, has recent full workup. the right arm and leg weakness has improved, has still some tingling sensation on her right foot. Review of Systems Constitutional: DENIES: Fever, Chills, Change in appetite Endocrine: DENIES: Heat/cold intolerance Eyes: DENIES: Blurred vision, Eye pain Gastrointestinal: COMPLAINS OF: Nausea, Vomiting Except as stated in HPI: all other systems reviewed are Neg Past Family Social History Past Medical History Chronic Anticoagulation with Eliquis Iron deficiency anemia COPD/Asthma induced exercise Bipolar disorder Depression Cardiomyopathy Atrial Fibrillation Hyperlipidemia TIA x 2 history Fibromyalgia GERD Hypertension Chronic Low back pain LUCIANA Migraine Past Surgical History C Section IKER Left Great toe surgery Reported Medications Reported Meds & Active Scripts Active Verapamil ER (Verapamil HCl) 120 Mg Tab 120 Mg PO DAILY 30 Days Reported Dulera 120 Act Inh (Mometasone-Formoterol 120 Act Inh) 100-5 Mcg/Act Inh 2 Puff INH BID Omeprazole 20 Mg Tab 20 Mg PO DAILY Fioricet (Bdndwjzocr-Ikndgsgkkfbni-Lfsyslzs) 50-300-40 Mg Cap 1-2 Cap PO Q6H PRN Lomotil (Diphenoxylate-Atropine) 2.5-0.025 Mg Tab 2 Tab PO TID PRN Plavix (Clopidogrel Bisulfate) 75 Mg Tab 75 Mg PO DAILY Zofran Odt (Ondansetron Odt) 4 Mg Tab 4 Mg SL Q12HR Flonase Nasal [place] (Fluticasone Nasal [place]) 50 Mcg/Act [place] 1 [place] EACH NARE BID Claritin (Loratadine) 10 Mg Cap 10 Mg PO DAILY Topiramate 25 Mg Tab 25 Mg PO BID Proair Hfa 8.5 GM Inh (Albuterol Sulfate) 90 Mcg/Act Aer 2 Puff INH Q4-6H PRN 108 mcg/actuation Atorvastatin (Atorvastatin Calcium) 80 Mg Tab 80 Mg PO HS Loperamide (Loperamide HCl) 2 Mg Tablet 2 Mg PO TID PRN Trazodone (Trazodone HCl) 50 Mg Tab 200 Mg PO HS Baclofen 10 Mg Tab 10 Mg PO BID Carafate (Sucralfate) 1 Gm Tab 1 Gm PO DAILY On empty stomach Bentyl (Dicyclomine HCl) 10 Mg Cap 10 Mg PO BID PRN Aspirin DR (Aspirin) 81 Mg Tabdr 81 Mg PO DAILY Lexapro (Escitalopram Oxalate) 20 Mg Tab 20 Mg PO DAILY Zetia (Ezetimibe) 10 Mg Tab 10 Mg PO DAILY Abilify (Aripiprazole) 2 Mg Tab 2 Mg PO DAILY Allergies: Coded Allergies: bee venom protein (honey bee) (Verified Allergy, Severe, Swelling, 07/15/17) citric acid (Verified Allergy, Intermediate, itching, 07/15/17) grass pollen (Verified Allergy, Mild, SNEEZING, 07/15/17) Uncoded Allergies: DENTURE ADHESIVES (Adverse Reaction, Severe, Ulcers, 12/09/16) Active Ordered Medications Current Medications Medications (Trade) Dose Ordered Sig/Yuriy Route Start Time Stop Time Status Last Admin (NS Flush) 2 ml UNSCH PRN IVF 07/15/17 14:00 (Abilify) 2 mg DAILY PO 07/16/17 09:00 UNV (Ecotrin Ec) 81 mg DAILY PO 07/16/17 09:00 UNV (Lipitor) 80 mg HS PO 07/15/17 21:00 UNV (Lioresal) 10 mg BID PO 07/15/17 21:00 UNV (Plavix) 75 mg DAILY PO 07/16/17 09:00 UNV (Bentyl) 10 mg BID PRN PO 07/15/17 16:15 UNV (Lexapro) 20 mg DAILY PO 07/16/17 09:00 UNV (Zetia) 10 mg DAILY PO 07/16/17 09:00 UNV (Claritin) 10 mg DAILY PO 07/16/17 09:00 UNV (Carafate) 1 gm DAILY PO 07/16/17 09:00 UNV (Desyrel) 200 mg HS PO 07/15/17 21:00 UNV (Isoptin Sr) 120 mg DAILY PO 07/16/17 09:00 UNV Non-Formulary Medication 1 spray BID EACH NARE 07/15/17 21:00 UNV Non-Formulary Medication 2 puff BID INH 07/15/17 21:00 UNV Non-Formulary Medication 20 mg DAILY PO 07/16/17 09:00 UNV Sodium Chloride 1,000 ml @ 100 mls/hr Q10H IV 07/15/17 16:09 UNV (NS Flush) 2 ml UNSCH PRN IV FLUSH 07/15/17 16:15 UNV (NS Flush) 2 ml BID IV FLUSH 07/15/17 21:00 UNV (Tylenol) 650 mg Q4H PRN PO 07/15/17 16:15 UNV (Zofran Inj) 4 mg Q6H PRN IVP 07/15/17 16:15 UNV (Lovenox Inj) 40 mg Q24H SQ 07/15/17 16:15 UNV (Narcan Inj) 0.4 mg UNSCH PRN IV PUSH 07/15/17 16:15 UNV (Senokot) 17.2 mg Q12H PRN PO 07/15/17 16:15 UNV (Dulcolax Supp) 10 mg DAILY PRN RECTAL 07/15/17 16:15 UNV (Lactulose Liq) 30 ml DAILY PRN PO 07/15/17 16:15 UNV Family History Hypertension, DM II runs in her family Social History Denies any toxic habits. Physical Exam Vital Signs Vital Signs Date Time Temp Pulse Resp B/P (MAP) Pulse Ox O2 Delivery O2 Flow Rate FiO2 07/15/17 14:08 84 17 137/75 (95) 100 Room Air 07/15/17 14:08 84 100 Room Air 07/15/17 13:36 97.6 101 20 138/106 (117) 98 Physical Exam GENERAL: Morbid obese patient oriented in time, place and person. SKIN: Focused skin assessment warm/dry. HEAD: Atraumatic. Normocephalic. EYES: Pupils equal and round. No scleral icterus. No injection or drainage. ENT: No nasal bleeding or discharge. Mucous membranes pink and moist. NECK: Trachea midline. No JVD. Supple. CARDIOVASCULAR: Regular rate and rhythm. No murmur appreciated. Pulses present and equal bilaterally. RESPIRATORY: No accessory muscle use. Clear to auscultation. Breath sounds equal bilaterally. GASTROINTESTINAL: Abdomen soft, non-tender, nondistended. Hepatic and splenic margins not palpable. MUSCULOSKELETAL: No obvious deformities. No clubbing. No cyanosis. No edema. NEUROLOGICAL: Awake and alert. No obvious cranial nerve deficits. Motor grossly within normal limits. Normal speech. PSYCHIATRIC: Appropriate mood and affect; insight and judgment normal. Laboratory Laboratory Tests Test 07/15/17 14:10 White Blood Count 10.4 Red Blood Count 5.10 Hemoglobin 14.2 Hematocrit 43.1 Mean Corpuscular Volume 84.4 Mean Corpuscular Hemoglobin 27.8 Mean Corpuscular Hemoglobin Concent 33.0 Red Cell Distribution Width 14.2 Platelet Count 323 Mean Platelet Volume 9.3 Neutrophils (%) (Auto) 71.6 Lymphocytes (%) (Auto) 19.2 Monocytes (%) (Auto) 6.3 Eosinophils (%) (Auto) 2.6 Basophils (%) (Auto) 0.3 Neutrophils # (Auto) 7.5 Lymphocytes # (Auto) 2.0 Monocytes # (Auto) 0.7 Eosinophils # (Auto) 0.3 Basophils # (Auto) 0.0 CBC Comment DIFF FINAL Differential Comment Prothrombin Time 9.4 Prothromb Time International Ratio 0.9 Activated Partial Thromboplast Time 28.4 Blood Urea Nitrogen 14 Creatinine 0.87 Random Glucose 94 Total Protein 8.7 Albumin 3.9 Calcium Level 9.7 Alkaline Phosphatase 138 Aspartate Amino Transf (AST/SGOT) 20 Alanine Aminotransferase (ALT/SGPT) 27 Total Bilirubin 0.7 Sodium Level 139 Potassium Level 4.3 Chloride Level 105 Carbon Dioxide Level 28.0 Anion Gap 6 Estimat Glomerular Filtration Rate 73 Result Diagram: 07/15/17 1410 07/15/17 1410 Imaging Last Impressions Head CT 07/15/17 1358 Signed Impressions: Service Date/Time: Saturday, July 15, 2017 14:14 - CONCLUSION: 1. No acute intracranial abnormality. Yohan Jones MD Chest X-Ray 07/15/17 1358 Signed Impressions: Service Date/Time: Saturday, July 15, 2017 14:09 - CONCLUSION: The lungs are clear. Kj Light MD [place]jigar VTE Risk Assessment Caprini VTE Risk Assessment: Mod/High Risk (score >= 2) Caprini Risk Assessment Model Point Value = 1 Point Value = 2 Point Value = 3 Point Value = 5 Age 41-60 Minor surgery BMI > 25 kg/m2 Swollen legs Varicose veins or History of unexplained or recurrent spontaneous Oral contraceptives or hormone replacement Sepsis (< 1 month) Serious lung disease, including pneumonia (< 1 month) Abnormal pulmonary function Acute myocardial infarction Congestive heart failure (< 1 month) History of inflammatory bowel disease Medical patient at bed rest Age 61-74 Arthroscopic surgery Major open surgery (> 45 min) Laparoscopic surgery (> 45 min) Malignancy Confined to bed (> 72 hours) Immobilizing plaster cast Central venous access Age >= 75 History of VTE Family history of VTE Factor V Leiden Prothrombin [id number] Lupus anticoagulant Anticardiolipin antibodies Elevated serum homocysteine Heparin-induced thrombocytopenia Other congenital or acquired thrombophilia Stroke (< 1 month) Elective arthroplasty Hip, pelvis, or leg fracture Acute spinal cord injury (< 1 month) Prophylaxis Regimen Total Risk Factor Score Risk Level Prophylaxis Regimen 0-1 Low Early ambulation 2 Moderate Order ONE of the following: *Sequential Compression Device (SCD) *Heparin 5000 units SQ BID 3-4 Higher Order ONE of the following medications: *Heparin 5000 units SQ TID *Enoxaparin/Lovenox 40 mg SQ daily (WT < 150 kg, CrCl > 30 mL/min) *Enoxaparin/Lovenox 30 mg SQ daily (WT < 150 kg, CrCl > 10-29 mL/min) *Enoxaparin/Lovenox 30 mg SQ BID (WT < 150 kg, CrCl > 30 mL/min) AND/OR *Sequential Compression Device (SCD) 5 or more Highest Order ONE of the following medications: *Heparin 5000 units SQ TID (Preferred with Epidurals) *Enoxaparin/Lovenox 40 mg SQ daily (WT < 150 kg, CrCl > 30 mL/min) *Enoxaparin/Lovenox 30 mg SQ daily (WT < 150 kg, CrCl > 10-29 mL/min) *Enoxaparin/Lovenox 30 mg SQ BID (WT < 150 kg, CrCl > 30 mL/min) AND *Sequential Compression Device (SCD) Assessment and Plan Assessment and Plan 1. TIA stable seen in her bedroom will continue her home medicines, she is already on Plavix and Aspirin, has recent full workup will leave the decision for workup to Neurology specialist, continue Cardiac monitoring Cardiac enzymes. has history of TIA x 2, PT. speech therapy and OT 2. CAD/History of Atrial Fibrillation/and anticoagulated with Eliquis at this time sinus rhythm and not anticoagulated. 3. COPD/Asthma exercise induced. stable continue home medicines 4. Bipolar disorder/Depression continue Home medicines 5. Fibromyalgia to continue home medicines 6. GERD continue PPIs and Carafate 7. Hyperlipidemia continue home medicines 8. Hypertension mild uncontrol continue Home medicines and follow permissive hypertension 9. Chronic Low back pain continue pain medicine 10. LUCIANA 11. Morbid Obesity strongly recommended diet and exercise. DVT prophylaxis with Lovenox Code Status Full Code. Discussed Condition With Chet Syed MD Physician Certification 2 Midnight Certification Type: Admission for Inpatient Services Order for Inpatient Services The services are ordered in accordance with Medicare regulations or non- Medicare payer requirements, as applicable. In the case of services not specified as inpatient-only, they are appropriately provided as inpatient services in accordance with the 2-midnight benchmark. Estimated LOS (days): 3 days is the estimated time the patient will need to remain in the hospital, assuming treatment plan goals are met and no additional complications. Post-Hospital Plan: Not yet determined Heron Alvarez MD Jul 15, 2017 16:12
[2017-07-15] MEDS ORDERED: SODIUM CHLORIDE 0.9% FLUSH 10 ML FLUSH IV FLUSH PRN (16:15)
[2017-07-15] MEDS ORDERED: DICYCLOMINE HCL 10 MG CAP PO PRN (16:15)
[2017-07-15] MEDS ORDERED: ACETAMINOPHEN 325 MG TAB PO PRN (16:15)
[2017-07-15] MEDS ORDERED: ONDANSETRON HCL 4 MG/2 ML VIAL IVP PRN (16:15)
[2017-07-15] MEDS ORDERED: SENNOSIDES 8.6 MG TAB PO PRN (16:15)
[2017-07-15] MEDS ORDERED: LACTULOSE SYRUP 20 GM/30 ML CUP PO PRN (16:15)
[2017-07-15] MEDS ORDERED: BISACODYL 10 MG SUPP RECTAL PRN (16:15)
[2017-07-15] MEDS ORDERED: NALOXONE HCL 0.4 MG/ML AMP IV PUSH PRN (16:15)
[2017-07-15] MEDS ORDERED: GADODIAMIDE PF 287 MG/ML 5 ML VIAL (for RAD MRI) IVCONTRAST ONE (16:16)
[2017-07-15] MEDS: SODIUM CHLOR 0.9% 1000 ML INJ 1,000 ML IV SCH (17:14)
[2017-07-15 17:43] LABS: BACTERIA, URINE MOD /hpf; BILIRUBIN, URINE NEG (NEG); BLOOD, URINE NEG (NEG); GLUCOSE,URINE NEG (NEG); KETONE, URINE NEG (NEG); MUCUS URINE FEW /lpf (OCC); NITRITE,URINE NEG (NEG); SQUAMOUS EPITHELIAL CELL URINE 6 /hpf (0-5); URINE COLOR YELLOW (YELLW/STRAW); URINE LEUKOCYTE ESTERASE TRACE (NEG)
[2017-07-15 17:57] LABS: TROPONIN I LESS THAN 0.02 NG/ML (0.02-0.05)
[2017-07-15] MEDS ORDERED: ENOXAPARIN SODIUM 40 MG/0.4 ML SYRINGE SQ SCH (18:00)
[2017-07-15 19:10] LABS: CHOLESTEROL/ HDL RATIO 4.93 RATIO; HDL CHOLESTEROL 54.7 MG/DL (40.0-60.0)
[2017-07-15] MEDS: RESP: ALBUTEROL 2.5 MG/IPRATROPIUM 0.5 MG NEB (SCH) NEB ×2 (20:00→23:18)
--- NOTE | 2017-07-15 20:07 | MB ---
cc: Jesus Keene MD, David J MD DATE: 07/15/2017 HISTORY OF PRESENT ILLNESS: A 37-year-old right-handed woman with a history of hypertension, hypercholesterolemia, slight liver problems, peptic ulcer disease, ticks, depression, 3 miscarriages. No blood clots. I had seen her in 12/2016. She has been seen by Dr. Bonds in 07/2016, came in with numbness and weakness on the right side for a month of the face, arm, and leg. It felt like the right side was heavy. Negative workup including MRI of the brain, MRA of the neck, MRA of [place] of [place] by Dr. Bonds. She has been on aspirin and a headache. The episodes often came on after headaches. She was having 3 headaches a day. She takes chronic Fioricet and Topamax for headaches. She had a headache when I saw her in 12/2016 for 2 whole days and then developed tingling on the right side, a little bit on the face, a bit on the arm and leg and felt heavier. At that time, she was on aspirin 81 mg and Plavix. I thought they were probably complicated migraines. I recommended some verapamil and noted her blood pressure was up to 183/103. I switched the Norvasc to verapamil. Her urine drug screen was negative. LDL was somewhat elevated. She did not have any more spells. Her MRI of the brain, MR venogram and MRI of the cervical spine were normal. Her labs were negative. Her EEG and sedimentation rate were normal. Nevertheless, she tells me that she today, about 8 a.m. this morning, she woke up and her right arm and leg were heavier than usual. She had some numbness and heaviness in distal arm and leg, not in the face. She has, however, evidently been diagnosed by Dr. Patel with atrial fibrillation and is on the Eliquis. MEDICATIONS: 1. Abilify 2 mg a day. 2. Zetia. 3. Lexapro 20 mg a day. 4. Aspirin 81 mg. 5. Bentyl. 6. Carafate. 7. Baclofen 10 b.i.d. for low back pain. 8. Loperamide. 9. Atorvastatin. 10. Inhalers. 11. Topamax 25 b.i.d. 12. Claritin. 13. Flonase. 14. Zofran. 15. Plavix 75 16. Lomotil. 17. Percocet. 18. Omeprazole. 19. ____. 20. Verapamil 120 a day. 21. Eliquis 5 mg b.i.d., although I must say I do not think she is on it actually. That is the list from the ER note and I do not think she is actually taking Plavix. ALLERGIES: SHE IS ALLERGIC TO BEE VENOM, CITRIC ACID, GRASS POLLEN, DENTURE ADHESIVES. FAMILY HISTORY: Positive for cancer. Negative for seizure. Positive stroke. SOCIAL HISTORY: Not a smoker or drinker. No drugs. Lives with her mother. PAST MEDICAL HISTORY: As above. Also iron deficiency, chronic back pain, bronchitis. REVIEW OF SYSTEMS: Denied fever, chills, change in appetite, heat or cold intolerance, eye pain. She has had some palpitations. She denied any chest pain. She does have chronic headaches as noted. She denied any CHF or diabetes. She does have a history of fibromyalgia. No immune disorders. No reproductive problems. She does have some sleep apnea. She has had 3 miscarriages. No blood clots. PHYSICAL EXAMINATION: VITAL SIGNS: Afebrile 84, 17, 137/75. Highest blood pressure here 138/106, now down to 137/75. She is in sinus rhythm on tele. NECK: There were no carotid bruits. HEART: Regular rhythm. I did not detect a murmur. GENERAL: She is moderately obese. NEUROLOGIC: Pupils are equal. Visual ellis are full. Extraocular movements intact without nystagmus. Face is symmetric with normal sensation. Tongue was midline. There is no drift. She has normal strength, best testing in upper and lower extremities bilaterally including the right triceps, finger extensors, fast finger movements, iliopsoas, tibialis anterior on the right. DTRs absent throughout. Toes are downgoing bilaterally. Pinprick is intact throughout. She has a little tremor on the right hand. Speech is fluent. She is not aphasic. LABORATORY DATA: CBC is normal. Sedimentation rate is 28 the last time she was here. RPR is negative from last December as was an BRADLEY, antiphospholipid antibody, urine drug screen. Prothrombin gene was not detected. UA has been negative in the past. Hypercoag screen was normal back in December. Lupus anticoagulant was not detected. Antithrombin III negative, factor V, factor VIII all normal. CBC is normal. Sedimentation rate was 28 as noted. ABG 7.36, 43, 21 but that was cord blood back in 2005. She had an echocardiogram done last December that was normal. Left atrial size was mildly dilated. The EF was normal. LA size was read as 35, however. Valves were normal. IMAGING STUDIES: CAT scan of the brain here is read as negative. Chest x-ray here: Lungs are clear. Review of the CT does appear to be normal. ASSESSMENT AND PLAN: I think it is unlikely she had a stroke. She has had what are probably complicated migraines in the past. I do note that she has been on Eliquis and, if she has not been taking an aspirin at home, we could add a baby aspirin or if she has been we could switch her to Xarelto. Otherwise, I thought she looked well neurologically at this time. We will check an MRI of her brain here and an MRA of the [place] and recheck her lipid profile. MD ELIGIO Alfaro//ellie , 04:58 PM , 06:03 PM
--- NOTE | 2017-07-15 20:38 | RADRPT ---
EXAM DATE/TIME: 07/15/2017 19:52 [facility] COMPARISON: MRI BRAIN W & W/O CONTRAST, December 25, 2016, 22:16. INDICATIONS : Cephalgia. Right side numbness. CONTRAST: 20 cc Omniscan (gadodiamide) IV MEDICAL HISTORY : Hypertension. Hypercholesterolemia. Chronic obstructive pulmonary disease. SURGICAL HISTORY : Hysterectomy. section. ENCOUNTER: Initial ACUITY: 1 day PAIN SCORE: 0/10 LOCATION: cranial TECHNIQUE: Multiplanar, multisequence MRI of the brain was performed both prior to and following the administrat ion of paramagnetic contrast. FINDINGS: CEREBRUM: The ventricles are normal for age. No evidence of midline shift, mass lesion, hemorrhage or acute in farction. No extraaxial fluid collections are seen. The pituitary gland and suprasellar cistern are normal in configuration. WHITE MATTER: No significant signal abnormalities are seen in the white matter. POSTERIOR FOSSA: The cerebellum and brainstem are intact. The 4th ventricle is midline. The cerebellopontine angle is unremarkable. The cerebellar tonsils are normal in position. DIFFUSION IMAGING: No focal areas of restricted diffusion are seen. No evidence of acute infarction. EXTRACRANIAL: The visualized portions of the orbits and paranasal sinuses are unremarkable. POST-CONTRAST: No abnormal areas of parenchymal or dural enhancement. No evidence of blood-brain barrier breakdown. CONCLUSION: Negative for acute process Joseph Andrade MD FACR on July 15, 2017 at 20:28 Board Certified Radiologist. This report was verified electronically.
--- NOTE | 2017-07-15 20:53 | RADRPT ---
EXAM DATE/TIME: 07/15/2017 19:52 [facility] COMPARISON: MRA BRAIN W/O CONTRAST, August 05, 2016, 7:59. INDICATIONS : Cephalgia. MEDICAL HISTORY : Hypercholesterolemia. Hypertension. Chronic obstructive pulmonary disease. SURGICAL HISTORY : section. Hysterectomy. ENCOUNTER: Initial ACUITY: 1 day PAIN SCORE: 5/10 LOCATION: cranial Please note a normal MRA of the brain does not entirely exclude the possibility of a small aneurysm, nor the possibility of distal intracranial vessel disease. TECHNIQUE: 3D time of flight MRA was performed. Source images, multiplanar STS MIP, and 3D volume MIP reconstru ctions were reviewed. FINDINGS: There is excellent visualization of the major intracranial arteries out to the second-order branch ve ssels. There is no evidence for aneurysm, vessel truncation or stenosis, and no evidence for vascula r malformation. CONCLUSION: Negative for aneurysm or major branch vessel occlusion. Posterior communicating arteries not visuali zed. Joseph Andrade MD FACR on July 15, 2017 at 20:49 Board Certified Radiologist. This report was verified electronically.
[2017-07-15] MEDS ORDERED: MOMETASONE FORMOTEROL INH SCH (21:00)
[2017-07-15] MEDS ORDERED: ATORVASTATIN 80 MG TAB PO SCH (21:00)
[2017-07-15] MEDS ORDERED: traZODone HCL 50 MG TAB PO SCH (21:00)
[2017-07-15] MEDS: FLUTICASONE PROPIONATE 50 MCG/ACT 16 GM NASAL SPRAY NASAL SCH (21:00)
[2017-07-15] MEDS ORDERED: SERT-132 PO (22:08)
[2017-07-15] MEDS ORDERED: OXCA150T (22:08)
[2017-07-15] MEDS ORDERED: SPIR25TA PO (22:08)
[2017-07-15] MEDS ORDERED: TOPI50TA7 PO (22:08)
[2017-07-15] MEDS ORDERED: FURO20TA PO (22:08)
[2017-07-15] MEDS ORDERED: DILT120C50 PO (22:08)
[2017-07-15] MEDS ORDERED: APIX5TAB PO (22:08)
[2017-07-15] MEDS ORDERED: LISI10TA3 PO (22:08)
[2017-07-15] MEDS: guaiFENesin E.R. 600 MG TAB PO SCH (22:09)
[2017-07-15] MEDS: BACLOFEN 10 MG TAB PO SCH (22:09)
[2017-07-15] MEDS: SODIUM CHLORIDE 0.9% FLUSH 10 ML FLUSH IV FLUSH SCH (22:10)
[2017-07-16 00:06] LABS: TROPONIN I LESS THAN 0.02 NG/ML (0.02-0.05)
[2017-07-16] MEDS: SODIUM CHLOR 0.9% 1000 ML INJ 1,000 ML IV SCH ×2 (02:09→05:50)
[2017-07-16] MEDS: RESP: ALBUTEROL 2.5 MG/IPRATROPIUM 0.5 MG NEB (SCH) NEB ×3 (03:49→11:30)
[2017-07-16 04:01] VITALS: BP 121/59; PULSE 94; RESP 20; TEMP 98.5; O2SAT 100
[2017-07-16 08:00] VITALS: BP 100/51; PULSE 65; PULSE 92; RESP 16; TEMP 98.6; O2SAT 96
[2017-07-16] MEDS: BACLOFEN 10 MG TAB PO SCH (08:02)
[2017-07-16] MEDS: guaiFENesin E.R. 600 MG TAB PO SCH (08:03)
[2017-07-16] MEDS: FLUTICASONE PROPIONATE 50 MCG/ACT 16 GM NASAL SPRAY NASAL SCH (08:08)
[2017-07-16 08:22] LABS: AUTOMATED NEUTROPHIL # 7.6 TH/MM3 (1.8-7.7); BASOPHIL % 0.1 % (0.0-2.0); EOSINOPHIL # 0.2 TH/MM3 (0-0.4); EOSINOPHIL % 1.7 % (0.0-4.0); HEMATOCRIT 38.6 % (35.0-46.0); HEMOGLOBIN 12.8 GM/DL (11.6-15.3); LYMPH % 10.4 % (9.0-44.0); MEAN CELL VOLUME 84.5 FL (80.0-100.0); MEAN CORPUSCULAR HGB CONC 33.1 % (32.0-36.0); MEAN PLATELET VOLUME 9.5 FL (7.0-11.0); MONO % 4.6 % (0.0-8.0); MONOCYTE # 0.4 TH/MM3 (0-0.9); NEUT % 83.2 % (16.0-70.0); PLATELET COUNT 257 TH/MM3 (150-450); PROTHROMBIN TIME - PATIENT 9.8 SEC (9.8-11.6); RED BLOOD COUNT 4.56 MIL/MM3 (4.00-5.30); RED CELL DISTRIBUTION WIDTH 14.1 % (11.6-17.2); WHITE BLOOD COUNT 9.1 TH/MM3 (4.0-11.0)
[2017-07-16 08:51] LABS: BICARBONATE 22.5 MEQ/L (21.0-32.0); CALCIUM 8.7 MG/DL (8.5-10.1); CREATININE 0.86 MG/DL (0.50-1.00)
[2017-07-16] MEDS ORDERED: ARIPiprazole 2 MG TAB PO SCH (09:00)
[2017-07-16] MEDS ORDERED: EZETIMIBE 10 MG TAB PO SCH (09:00)
[2017-07-16] MEDS ORDERED: ESCITALOPRAM OXALATE 20 MG TAB PO SCH (09:00)
[2017-07-16] MEDS ORDERED: CLOPIDOGREL 75 MG TAB PO SCH (09:00)
[2017-07-16] MEDS ORDERED: ASPIRIN EC 81 MG TABEC PO SCH (09:00)
[2017-07-16] MEDS ORDERED: PANTOPRAZOLE SOD 20 MG DELAYED RELEASE TAB PO SCH (09:00)
[2017-07-16] MEDS ORDERED: LORATADINE 10 MG TAB PO SCH (09:00)
[2017-07-16] MEDS ORDERED: VERAPAMIL HCL 120 MG SUSTAINED RELEASE TAB PO SCH (09:00)
[2017-07-16] MEDS ORDERED: SUCRALFATE 1 GM TAB PO SCH (09:00)
[2017-07-16] MEDS: SODIUM CHLORIDE 0.9% FLUSH 10 ML FLUSH IV FLUSH SCH (09:43)
--- NOTE | 2017-07-16 10:38 | HHI.PR ---
Subjective Remarks sr Objective Vital Signs Date Time Temp Pulse Resp B/P (MAP) Pulse Ox O2 Delivery O2 Flow Rate FiO2 07/16/17 08:00 98.6 92 16 100/51 (67) 96 07/16/17 04:01 98.5 94 20 121/59 (79) 100 07/15/17 23:10 96 07/15/17 22:57 99.0 90 20 128/64 (85) 97 07/15/17 22:13 92 07/15/17 21:46 98.0 85 20 133/69 (90) 99 07/15/17 18:16 98.2 84 18 126/66 (86) 96 07/15/17 17:11 81 17 112/63 (79) 98 Room Air 07/15/17 16:32 98 21 07/15/17 14:08 84 17 137/75 (95) 100 Room Air 07/15/17 14:08 84 100 Room Air 07/15/17 13:36 97.6 101 20 138/106 (117) 98 I/O 07/15/17 07/15/17 07/15/17 07/16/17 07/16/17 07/16/17 07:00 15:00 23:00 07:00 15:00 23:00 # Voids 1 # Bowel Movements 1 Result Diagram: 07/16/17 0556 07/16/17 0556 Objective Remarks no more sx all resolved nl speech oob on own ok Assessment and Plan Assessment and Plan imp[ mri brain nl no new or old cva mra cow neg ldl 184 sr she is ok dc can add asa 81mg to eliquis although probably a complicated migraine fu o/p neurologist Jesus Keene MD Jul 16, 2017 10:38
[2017-07-16 12:00] VITALS: BP 135/69; PULSE 96; RESP 16; TEMP 98.2; O2SAT 96
--- NOTE | 2017-07-16 12:46 | HHI.PR ---
Subjective Remarks Follow-up visit right arm, right leg weakness, HTN, A. fib, COPD. Patient seen and examined today. Reports her right arm and right leg weakness has resolved. States that she has been diagnosed with A. fib and has been taking Eliquis since before she got to the hospital. States that she missed her dose yesterday only. No acute issues overnight. Denies pain and discomfort. Denies SOB/ dyspnea. Denies chest pain, palpitations, headaches, dizziness. Denies fevers, chills, n/v/d. Denies dysuria. Objective Vitals Vital Signs Date Time Temp Pulse Resp B/P (MAP) Pulse Ox O2 Delivery O2 Flow Rate FiO2 07/16/17 12:00 98.2 96 16 135/69 (91) 96 07/16/17 08:00 98.6 92 16 100/51 (67) 96 07/16/17 04:01 98.5 94 20 121/59 (79) 100 07/15/17 23:10 96 07/15/17 22:57 99.0 90 20 128/64 (85) 97 07/15/17 22:13 92 07/15/17 21:46 98.0 85 20 133/69 (90) 99 07/15/17 18:16 98.2 84 18 126/66 (86) 96 07/15/17 17:11 81 17 112/63 (79) 98 Room Air 07/15/17 16:32 98 21 07/15/17 14:08 84 17 137/75 (95) 100 Room Air 07/15/17 14:08 84 100 Room Air 07/15/17 13:36 97.6 101 20 138/106 (117) 98 I/O 07/15/17 07/15/17 07/15/17 07/16/17 07/16/17 07/16/17 07:00 15:00 23:00 07:00 15:00 23:00 # Voids 1 # Bowel Movements 1 Result Diagram: 07/16/17 0556 07/16/17 0556 Imaging Last Impressions Brain MRI 07/15/171657 Signed Impressions: Service Date/Time: Saturday, July 15, 2017 19:52 - CONCLUSION: Negative for acute process Joseph Andrade MD FACR Head Magnetic Resonance Angiography 07/15/171655 Signed Impressions: Service Date/Time: Saturday, July 15, 2017 19:52 - CONCLUSION: Negative for aneurysm or major branch vessel occlusion. Posterior communicating arteries not visualized. Joseph Andrade MD FACR Head CT 07/15/17 [id number] Signed Impressions: Service Date/Time: Saturday, July 15, 2017 14:14 - CONCLUSION: 1. No acute intracranial abnormality. Yohan Jones MD Chest X-Ray 07/15/17 [id number] Signed Impressions: Service Date/Time: Saturday, July 15, 2017 14:09 - CONCLUSION: The lungs are clear. Kj Light MD Objective Remarks GENERAL: This is an obese, well-developed patient, in no apparent distress. SKIN: Warm and dry. HEENT: Normocephalic. Pupils equal round and reactive. Nose without bleeding. Airway patent. NECK: Trachea midline. No JVD. Supple. CARDIOVASCULAR: Regular rate and rhythm without murmurs, gallops, or rubs. RESPIRATORY: Clear to auscultation. Breath sounds equal bilaterally. No wheezes , rales, or rhonchi. GASTROINTESTINAL: Abdomen soft, non-tender, nondistended. Bowel Sounds normoactive x4. MUSCULOSKELETAL: Extremities without clubbing, cyanosis, or edema. NEUROLOGICAL: Awake and alert. Oriented to time, place, person. No focal neuro deficit. Moves all extremities equal. Normal speech. Procedures None A/P Assessment and Plan Patient is a 37 y/o Female with previous TIA, hypertension, who came to Emergency department because she woke up with right arm and leg weakness, thinks that she may have had a TIA. ? TIA -Head CT no acute intracranial abnormality -MRI of the brain showed negative for acute process -Head MRA shows negative for aneurysm or major branch vessel occlusion. Posterior communicating arteries not visualized -Neurology consulted appreciate recommendations. Recommends to continue Eliquis and add low-dose aspirin 81 mg. Cleared for discharge CAD, history of atrial fibrillation HTN HLD -New home medication Eliquis, will add aspirin as per neurology recommendation. -Continue BP medications from home -Follow-up with PCP COPD/Asthma exercise induced. stable continue home medicines Bipolar disorder/Depression continue Home medicines Fibromyalgia to continue home medicines GERD continue PPIs and Carafate Chronic Low back pain continue pain medicine Morbid Obesity strongly LUCIANA -recommended diet and exercise. DVT prop Eliquis to restart Discharge Planning Plan to discharge home today follow-up with her vp compliance, neurologist as needed. Follow-up with PCP Arielle Olson Jul 16, 2017 12:46
--- NOTE | 2017-07-16 12:47 | HHI.DS ---
Discharge Summary Admission Date Jul 15, 2017 at 16:15 Discharge Date: Jul 16, 2017 Admitting Diagnosis Right arm and leg weakness, ? TIA (1) HLD (hyperlipidemia) ICD Code: E78.5 - Hyperlipidemia, unspecified Status: Acute (2) HTN (hypertension) ICD Code: I10 - Essential (primary) hypertension Status: Acute Procedures None Brief History - From Admission This is a pleasant 37 y/o Female with previous TIA, hypertension, who came to Emergency department because she woke up at 8 AM today with right arm and leg weakness, thinks that she may have had a TIA again. She also complains of a headache. She has some difficulty walking because of the right-sided weakness. She went to bed at 10 PM last night when she was feeling normal at that time. She denies any chest pains, trouble breathing, or any other symptoms. the patient felt dizzy at this time and is vomiting in her bedroom she has Morbid Obesity, will follow neurology specialist recommendations, has recent full workup. the right arm and leg weakness has improved, has still some tingling sensation on her right foot. CBC/BMP: 07/16/17 0556 07/16/17 0556 Significant Findings Laboratory Tests Test 07/15/17 14:10 07/15/17 16:45 07/15/17 23:31 07/16/17 05:56 Neutrophils (%) (Auto) 71.6 % (16.0-70.0) 83.2 % (16.0-70.0) Prothrombin Time 9.4 SEC (9.8-11.6) Total Protein 8.7 GM/DL (6.4-8.2) Alkaline Phosphatase 138 U/L (45-117) Estimat Glomerular Filtration Rate 73 ML/MIN (>89) 74 ML/MIN (>89) Troponin I LESS THAN 0.02 NG/ML LESS THAN 0.02 NG/ML Triglycerides Level 158 MG/DL (42-150) Cholesterol Level 270 MG/DL (120-200) LDL Cholesterol 184 MG/DL (0-99) Urine Leukocyte Esterase TRACE (NEG) Urine Bacteria MOD /hpf (NONE) Urine Mucus FEW /lpf (OCC) Imaging Last Impressions Brain MRI 07/15/171657 Signed Impressions: Service Date/Time: Saturday, July 15, 2017 19:52 - CONCLUSION: Negative for acute process Joseph Andrade MD FACR Head Magnetic Resonance Angiography 07/15/171655 Signed Impressions: Service Date/Time: Saturday, July 15, 2017 19:52 - CONCLUSION: Negative for aneurysm or major branch vessel occlusion. Posterior communicating arteries not visualized. Joseph Andrade MD FACR Head CT 07/15/171357 Signed Impressions: Service Date/Time: Saturday, July 15, 2017 14:14 - CONCLUSION: 1. No acute intracranial abnormality. Yohan Jones MD Chest X-Ray 07/15/171357 Signed Impressions: Service Date/Time: Saturday, July 15, 2017 14:09 - CONCLUSION: The lungs are clear. Kj Light MD PE at Discharge GENERAL: This is an obese, well-developed patient, in no apparent distress. SKIN: Warm and dry. HEENT: Normocephalic. Pupils equal round and reactive. Nose without bleeding. Airway patent. NECK: Trachea midline. No JVD. Supple. CARDIOVASCULAR: Regular rate and rhythm without murmurs, gallops, or rubs. RESPIRATORY: Clear to auscultation. Breath sounds equal bilaterally. No wheezes , rales, or rhonchi. GASTROINTESTINAL: Abdomen soft, non-tender, nondistended. Bowel Sounds normoactive x4. MUSCULOSKELETAL: Extremities without clubbing, cyanosis, or edema. NEUROLOGICAL: Awake and alert. Oriented to time, place, person. No focal neuro deficit. Moves all extremities equal. Normal speech. Pt update on day of discharge Follow-up visit right arm, right leg weakness, HTN, A. fib, COPD. Patient seen and examined today. Reports her right arm and right leg weakness has resolved. States that she has been diagnosed with A. fib and has been taking Eliquis since before she got to the hospital. States that she missed her dose yesterday only. No acute issues overnight. Denies pain and discomfort. Denies SOB/ dyspnea. Denies chest pain, palpitations, headaches, dizziness. Denies fevers, chills, n/v/d. Denies dysuria. Hospital Course Patient is a 37 y/o Female with previous TIA, hypertension, who came to Emergency department because she woke up with right arm and leg weakness, thinks that she may have had a TIA. Patient has been workup for TIA. CT of the head with no acute intracranial abnormality. MRI of the brain showed negative for acute process. Head MRA shows negative for aneurysm or major branch vessel occlusion. Posterior communicating arteries are not visualized. Urology was consulted to follow patient. Recommend to continue Eliquis and add aspirin 81 mg. Patient needs to continue BP management and HLD management as an outpatient. Clinically improved. Patient has met maximal benefits of hospitalization. Clinically stable for discharge. Pt Condition on Discharge: Stable Discharge Disposition: Discharge Home Discharge Time: <= 30 minutes Discharge Instructions DIET: Follow Instructions for: Heart Healthy Diet Activities you can perform: Regular-No Restrictions Activities to Avoid: Driving for 24 hrs Follow up Referrals: Cardiology Neurology PCP Follow-up - 2-3 Days New Medications: Aspirin DR (Aspirin DR) 81 Mg Tabdr 81 MG PO DAILY for Blood Clot Prevention, #30 TAB Continued Medications: Albuterol 8.5 GM Inh (Proair Hfa 8.5 GM Inh) 90 Mcg/Act Aer 2 PUFF INH Q4-6H PRN for SHORTNESS OF BREATH, #1 INHALER 0 Refills 108 mcg/actuation Apixaban (Eliquis) 5 Mg Tab 5 MG PO BID for Blood Clot Prevention, #60 TAB 0 Refills Atorvastatin (Atorvastatin) 80 Mg Tab 80 MG PO HS for Cholesterol Management, #30 TAB 0 Refills Baclofen (Baclofen) 10 Mg Tab 10 MG PO BID for MUSCLE SPASM, TAB 0 Refills Nfkwvhyrvc-Bgqgovvaqutym-Ceykfzns (Fioricet) 50-300-40 Mg Cap 1-2 CAP PO Q6H PRN for HEADACHE, CAP 0 Refills Ezetimibe (Zetia) 10 Mg Tab 10 MG PO DAILY, #30 TAB 0 Refills Lisinopril (Lisinopril) 10 Mg Tab 10 MG PO DAILY, #30 TAB 0 Refills Loratadine (Claritin) 10 Mg Cap 10 MG PO DAILY for Allergy Management, CAP 0 Refills Sertraline (Sertraline) 50 Mg Tab 50 MG PO AC BREAKFAST, #30 TAB 0 Refills Spironolactone (Spironolactone) 25 Mg Tab 25 MG PO DAILY, #30 TAB 0 Refills Topiramate (Topiramate) 50 Mg Tab 100 MG PO BID for Control Seizures, #60 TAB 0 Refills Verapamil ER (Verapamil ER) 120 Mg Tab 120 MG PO DAILY for hypertension for 30 Days, #30 TAB 0 Refills Arielle Olson Jul 16, 2017 12:47
--- NOTE | 2017-07-16 12:47 | HHI.DCPOC ---
Discharge Care Plan Your Health Problems Are: Difficulty with ADL Loss of Movements Goals to Promote Your Health * To prevent worsening of your condition and complications * To maintain your health at the optimal level Directions to Meet Your Goals Take your medications as prescribed Follow your dietary instruction Follow activity as directed Keep your appointments as scheduled Take your immunizations and boosters as scheduled If your symptoms worsen call your PCP, if no PCP go to Urgent Care Center or Emergency Room Smoking is Dangerous to Your Health. Avoid second hand smoke Call the 24-hour hour crisis hotline for domestic abuse at Arielle OlsonP Jul 16, 2017 12:47
[2017-07-16] MEDS ORDERED: ECASA81 PO (12:50)
--- NOTE | 2017-07-16 14:40 | EKG ---
Date Performed: 07/15/2017 Time Performed: 16:57:53 PTAGE: 37 years EKG: Sinus rhythm NONSPECIFIC T-WAVE ABNORMALITY BORDERLINE ECG PREVIOUS TRACING 07/15/17 Since the previous tracing, no significant change noted DOCTOR: Noah Marcum Interpretating Date/Time 07/16/2017 14:39:50
--- NOTE | 2017-07-16 14:40 | EKG ---
Date Performed: 07/15/2017 Time Performed: 14:26:40 PTAGE: 37 years EKG: Sinus rhythm NONSPECIFIC T-WAVE ABNORMALITY BORDERLINE ECG PREVIOUS TRACING : 12/25/2016 12.16 Since previous tracing, heart rate has gone from 54 to 82; otherwise, no significant change. DOCTOR: Noah Marcum Interpretating Date/Time 07/16/2017 14:39:32
== END 2017-07-16 15:54 | disposition home or self-care (01) ==
LOC: NEPC 13:30 → NEDA 16:15 → NEPFCDU 17:41
PROVIDERS: ADMIT Hospitalist; ATTEND Hospitalist
DX: G45.9 Transient cerebral ischemic attack, unspecified (principal); G43.109 Migraine with aura, not intractable, without status migrainosus; R26.2 Difficulty in walking, not elsewhere classified; N39.0 Urinary tract infection, site not specified; B96.1 Klebsiella pneumoniae [K. pneumoniae] as the cause of diseases classified elsewhere; I10 Essential (primary) hypertension; I25.10 Atherosclerotic heart disease of native coronary artery without angina pectoris; I48.91 Unspecified atrial fibrillation; E78.5 Hyperlipidemia, unspecified; J44.9 Chronic obstructive pulmonary disease, unspecified; I42.9 Cardiomyopathy, unspecified; M54.5 Low back pain; G89.29 Other chronic pain; F31.9 Bipolar disorder, unspecified; E78.00 Pure hypercholesterolemia, unspecified; M79.7 Fibromyalgia; Z79.01 Long term (current) use of anticoagulants; G47.33 Obstructive sleep apnea (adult) (pediatric); K21.9 Gastro-esophageal reflux disease without esophagitis; Z79.82 Long term (current) use of aspirin; Z86.73 Personal history of transient ischemic attack (TIA), and cerebral infarction without residual deficits
CPT/HCPCS: 70450; 70544; 70553; 71045; 80048; 80053; 80061; 81001; 82550; 82948; 84484; 84702; 85025; 85610; 85730; 87077; 87086; 87186; 92610; 93005; 94150; 94640; 94664; 96361; 96374; 97163; 99285; A9579; G0378; G8987; G8988; G8996; G8997; G8998; J2405; J7030